=== PATIENT | male | born 1950 | race African-American/Black ===

== ENCOUNTER 2019-09-19 09:04 | Emergency (ER) | payer OTHER ==
--- NOTE | 2019-09-19 10:12 | ER ---
Nurse's Notes [facility] Name: Rodrigue Medina Age: 69 yrs Sex: Male : 1950 Arrival Date: 09/19/2019 Time: 09:07 Bed 17 Private MD: Diagnosis: Acute upper respiratory infection, unspecified;Fever, unspecified;Cough;Influenza due to certain identified influenza viruses-FLU B Presentation: 09/19 09:14 Presenting complaint: Patient states: body aches and cough that began 3 days ago. ss Denies fever. Transition of care: patient was not received from another setting of care. Onset of symptoms was September 16, 2019. Risk Assessment: Do you want to hurt yourself or someone else? Patient reports no desire to harm self or others. Initial Sepsis Screen: Does the patient meet any 2 criteria? HR > 90 bpm. Does the patient have a suspected source of infection? No. Patient's initial sepsis screen is negative. Care prior to arrival: None. 09:14 Method Of Arrival: Ambulatory ss 09:14 Acuity: LIBBY 3 ss Triage Assessment: 09:24 General: Appears in no apparent distress. comfortable, Behavior is cooperative, bp appropriate for age, anxious. Pain: Complains of pain in GENERALIZED. EENT: Reports nasal congestion. Neuro: No deficits noted. Cardiovascular: No deficits noted. Respiratory: Reports cough that is. GI: No signs and/or symptoms were reported involving the gastrointestinal system. : No signs and/or symptoms were reported regarding the genitourinary system. Derm: No deficits noted. Musculoskeletal: No deficits noted. Historical: - Allergies: 09:33 No Known Allergies; ss - Immunization history:: Adult Immunizations up to date. - Social history:: Smoking status: Patient/guardian denies using tobacco. - Ebola Screening: : Patient denies exposure to infectious person Patient denies travel to an Ebola-affected area in the 21 days before illness onset. - Family history:: not pertinent. Screenin:25 Abuse screen: Denies threats or abuse. Denies injuries from another. Nutritional bp screening: No deficits noted. Tuberculosis screening: No symptoms or risk factors identified. Fall Risk None identified. Assessment: 09:25 General: SEE TRIAGE NOTE. bp 10:51 Reassessment: PT D/C HOME AMBULATORY WITH FAMILY, DX WITH URI. bp Vital Signs: 09:33 BP 142 / 89; Pulse 93; Resp 17; Temp 97.9(O); Pulse Ox 98% on R/A; Weight 91.63 kg; Height 5 ft. 11 in. (180.34 cm); Pain 6/10; 10:40 BP 110 / 69; Pulse 89; Resp 16; Temp 98; Pulse Ox 98% ; bp 09:33 Body Mass Index 28.17 (91.63 kg, 180.34 cm) ED Course: 09:07 Patient arrived in ED. mr 09:16 Owen Betts, RN is Primary Nurse. bp 09:16 Fabrizio Valle MD is Attending Physician. [facility] 09:25 Patient has correct armband on for positive identification. Bed in low position. Call bp light in reach. Side rails up X2. 09:31 Triage completed. 09:33 Arm band placed on right wrist. 09:36 Influenza Screen (a \T\ B) Sent. [email or web address] 09:43 Chest Pa And Lat (2 Views) XRAY In Process Unspecified. EDMS 10:51 No provider procedures requiring assistance completed. Patient did not have IV access bp during this emergency room visit. Administered Medications: 10:20 Drug: Zithromax 500 mg Route: PO; bp 10:41 Follow up: Response: No adverse reaction bp 10:20 Drug: Tamiflu 75 mg Route: PO; bp 10:41 Follow up: Response: No adverse reaction bp Outcome: 10:10 Discharge ordered by . minerva 10:51 Discharged to home ambulatory, with family. bp 10:51 Condition: stable 10:51 Discharge instructions given to patient, Instructed on discharge instructions, follow up and referral plans. medication usage, Demonstrated understanding of instructions, follow-up care, medications, Prescriptions given X 3. 10:52 Patient left the ED. bp Signatures: Dispatcher [employer] EDMS Fabrizio Valle MD MD cha Rivera, Luly mr Mercedes Oneill, RN GABBY Owen Betts, GABBY RN Jessica Rizvi [email or web address]
--- NOTE | 2019-09-19 10:13 | EDPHYS ---
Physician Documentation [facility] Name: Rodrigue Medina Age: 69 yrs Sex: Male : 1950 Arrival Date: 09/19/2019 Time: 09:07 Bed 17 Private MD: ED Physician Fabrizio Valle HPI: 09/19 10:06 This 69 yrs old Black Male presents to ER via Ambulatory with complaints of Flu minerva Symptoms. 10:06 The patient has shortness of breath with light activity. Onset: The symptoms/episode minerva began/occurred 3 day(s) ago. Duration: The symptoms are continuous, and are unchanged since they started. The patient's shortness of breath is aggravated by coughing. The patient or guardian reports cough, difficulty breathing, flu symptoms, arthralgias, low-grade fever, myalgias, no appetite. Modifying factors: The symptoms are alleviated by nothing. the symptoms are aggravated by cold environment. Associated signs and symptoms: Pertinent positives: non-productive cough, fever. Severity of symptoms: At their worst the symptoms were mild moderate in the emergency department the symptoms have improved moderately. Historical: - Allergies: 09:33 No Known Allergies; ss - Immunization history:: Adult Immunizations up to date. - Social history:: Smoking status: Patient/guardian denies using tobacco. - Ebola Screening: : Patient denies exposure to infectious person Patient denies travel to an Ebola-affected area in the 21 days before illness onset. - Family history:: not pertinent. ROS: 10:06 Constitutional: Negative for fever, chills, and weight loss, Eyes: Negative for injury, minerva pain, redness, and discharge, ENT: Negative for injury, pain, and discharge, Neck: Negative for injury, pain, and swelling, Cardiovascular: Negative for chest pain, palpitations, and edema, Abdomen/GI: Negative for abdominal pain, nausea, vomiting, diarrhea, and constipation, Back: Negative for injury and pain, : Negative for injury, bleeding, discharge, and swelling, MS/Extremity: Negative for injury and deformity, Skin: Negative for injury, rash, and discoloration, Neuro: Negative for headache, weakness, numbness, tingling, and seizure, Psych: Negative for depression, anxiety, suicide ideation, homicidal ideation, and hallucinations, Allergy/Immunology: Negative for hives, rash, and allergies, Endocrine: Negative for neck swelling, polydipsia, polyuria, polyphagia, and marked weight changes, Hematologic/Lymphatic: Negative for swollen nodes, abnormal bleeding, and unusual bruising. 10:06 Respiratory: Positive for cough, shortness of breath, on exertion. Exam: 10:06 Constitutional: This is a well developed, well nourished patient who is awake, alert, minerva and in no acute distress. Head/Face: Normocephalic, atraumatic. Eyes: Pupils equal round and reactive to light, extra-ocular motions intact. Lids and lashes normal. Conjunctiva and sclera are non-icteric and not injected. Cornea within normal limits. Periorbital areas with no swelling, redness, or edema. ENT: Nares patent. No nasal discharge, no septal abnormalities noted. Tympanic membranes are normal and external auditory canals are clear. Oropharynx with no redness, swelling, or masses, exudates, or evidence of obstruction, uvula midline. Mucous membranes moist. Neck: Trachea midline, no thyromegaly or masses palpated, and no cervical lymphadenopathy. Supple, full range of motion without nuchal rigidity, or vertebral point tenderness. No Meningismus. Chest/axilla: Normal chest wall appearance and motion. Nontender with no deformity. No lesions are appreciated. Respiratory: Lungs have equal breath sounds bilaterally, clear to auscultation and percussion. No rales, rhonchi or wheezes noted. No increased work of breathing, no retractions or nasal flaring. Abdomen/GI: Soft, non-tender, with normal bowel sounds. No distension or tympany. No guarding or rebound. No evidence of tenderness throughout. Back: No spinal tenderness. No costovertebral tenderness. Full range of motion. Male : Normal genitalia with no discharge or lesions. Skin: Warm, dry with normal turgor. Normal color with no rashes, no lesions, and no evidence of cellulitis. MS/ Extremity: Pulses equal, no cyanosis. Neurovascular intact. Full, normal range of motion. Neuro: Awake and alert, GCS 15, oriented to person, place, time, and situation. Cranial nerves II-XII grossly intact. Motor strength 5/5 in all extremities. Sensory grossly intact. Cerebellar exam normal. Normal gait. Psych: Awake, alert, with orientation to person, place and time. Behavior, mood, and affect are within normal limits. 10:06 Cardiovascular: Rate: normal, Rhythm: regular. 10:06 Respiratory: the patient does not display signs of respiratory distress, Respirations: normal, Breath sounds: are clear throughout, rhonchi, that are mild, are scattered. Vital Signs: 09:33 BP 142 / 89; Pulse 93; Resp 17; Temp 97.9(O); Pulse Ox 98% on R/A; Weight 91.63 kg; ss Height 5 ft. 11 in. (180.34 cm); Pain 6/10; 10:40 BP 110 / 69; Pulse 89; Resp 16; Temp 98; Pulse Ox 98% ; bp 09:33 Body Mass Index 28.17 (91.63 kg, 180.34 cm) ss MDM: 09:16 Patient medically screened. [facility] 10:09 Data reviewed: vital signs, nurses notes, lab test result(s), radiologic studies, plain [facility] films. 09/19 09:17 Order name: Influenza Screen (a \T\ B); Complete Time: 10:28 [facility] 09/19 09:17 Order name: Chest Pa And Lat (2 Views) XRAY [facility] Administered Medications: 10:20 Drug: Zithromax 500 mg Route: PO; bp 10:41 Follow up: Response: No adverse reaction bp 10:20 Drug: Tamiflu 75 mg Route: PO; bp 10:41 Follow up: Response: No adverse reaction bp Disposition: 09/19/19 10:10 Discharged to Home. Impression: Acute upper respiratory infection, unspecified, Fever, unspecified, Cough, Influenza due to certain identified influenza viruses - FLU B. - Condition is Fair. - Discharge Instructions: Fever, Adult, Upper Respiratory Infection, Adult, Cool Mist Vaporizer, Upper Respiratory Infection, Adult, [id number], Influenza, Adult, [id number], Cough, Adult, [id number], Cough, Adult. - Prescriptions for Bromfed DM 2- 30-10 mg/5 mL Oral syrup - take 10 milliliter by ORAL route every 6 hours; 160 milliliter. Tamiflu 75 mg Oral Capsule - take 1 tablet by ORAL route every 12 hours for 5 days; 10 tablet. Zithromax 500 mg Oral Tablet - take 1 tablet by ORAL route once daily for 5 days; 5 tablet. - Medication Reconciliation Form, Thank You Letter, Antibiotic Education, Prescription Opioid Use form. - Follow up: Private Physician; When: 2 - 3 days; Reason: Recheck today's complaints, Continuance of care, Re-evaluation by your physician. - Problem is new. - Symptoms have improved. Signatures: Dispatcher [employer] EDUT Fabrizio Valle MD MD cha Smirch, Shelby, RN RN ss Franki Martinez RN RN [id number] Owen Betts RN RN bp Corrections: (The following items were deleted from the chart) 10:29 10:10 09/19/2019 10:10 Discharged to Home. Impression: Acute upper respiratory minerva infection, unspecified; Fever, unspecified; Cough. Condition is Fair. Forms are Medication Reconciliation Form, Thank You Letter, Antibiotic Education, Prescription Opioid Use. Follow up: Private Physician; When: 2 - 3 days; Reason: Recheck today's complaints, Continuance of care, Re-evaluation by your physician. Problem is new. Symptoms have improved. [facility] 10:52 10:29 09/19/2019 10:10 Discharged to Home. Impression: Acute upper respiratory bp infection, unspecified; Fever, unspecified; Cough; Influenza due to certain identified influenza viruses - FLU B. Condition is Fair. Discharge Instructions: Fever, Adult, Upper Respiratory Infection, Adult, Cool Mist Vaporizer, Upper Respiratory Infection, Adult, [id number], Cough, Adult, [id number]-[id number], Cough, Adult. Prescriptions for Bromfed DM 2-30-10 mg/5 mL Oral syrup - take 10 milliliter by ORAL route every 6 hours; 160 milliliter, Tamiflu 75 mg Oral Capsule - take 1 tablet by ORAL route every 12 hours for 5 days; 10 tablet, Zithromax 500 mg Oral Tablet - take 1 tablet by ORAL route once daily for 5 days; 5 tablet. and Forms are Medication Reconciliation Form, Thank You Letter, Antibiotic Education, Prescription Opioid Use. Follow up: Private Physician; When: 2 - 3 days; Reason: Recheck today's complaints, Continuance of care, Re-evaluation by your physician. Problem is new. Symptoms have improved. minerva
[2019-09-19] MEDS ORDERED: OSELTAMIVIR 75 MG CAP ONE (10:23)
[2019-09-19] MEDS ORDERED: AZITHROMYCIN 250 MG TAB ONE (10:23)
[2019-09-19 10:57] VITALS: O2SAT 98
[2019-09-19 10:59] VITALS: BP 110/69; TEMP 98
--- NOTE | 2019-09-19 12:12 | RAD REPORT ---
EXAM DESCRIPTION: RAD - Chest Pa And Lat (2 Views) - 09/19/2019 9:38 am CLINICAL HISTORY: COUGH Chest pain. COMPARISON: No comparisons FINDINGS: The lungs are clear. The heart is normal in size. No displaced fractures. IMPRESSION: No acute or concerning finding suspected.
== END 2019-09-19 10:52 | disposition home or self-care (01) ==
LOC: ER 09:04
DX: J10.1 Influenza due to other identified influenza virus with other respiratory manifestations (principal); R05 Cough
CPT/HCPCS: 71046; 87804; 99284

== ENCOUNTER 2022-06-16 09:19 | Emergency (ER) | payer OTHER ==
--- OUTSIDE RECORDS SUMMARY | 2022-06-16 09:26 | XMS REPORT | Continuity of Care Document ---
:1950 Author Organization [facility] t Address [address] [place] [address] Care Team Providers Name Role Phone Unavailable Unavailable Unavailable Payers Payer Name Policy Type Policy Number Effective Date Expiration Date S [facility] [place] [facility] [id number] * Problems Condition Condition Condition Status Onset Resolution Last Treating Co mments Source Name Details Category Date Date Treatment Clinician Date Chronic Chronic Problem Active 2020-08-22 M emoria kidney kidney 03:16:43 l disease, disease, Awais n stage 3, stage 3, mod mod decreased decreased GFR GFR Active Problem 08/22/2020 Hemal Pinedo 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:03:56 l 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 Problem 05/22/2019 Hemal Pinedo Hypertensi Diagnosis Active 2020-02-22 Memoria ve heart Hypertensi 02:06:20 l and ve heart [place] chronic and kidney chronic disease kidney with heart disease failure with heart and stage failure 1-4 and stage chronic 1-4 kidney chronic disease kidney disease Active Diagnosis 02/22/2020 Hemal Pinedo BMI BMI Problem Active 2022-03-01 Memor ia 28.0-28.9, 28.0-28.9, 02:01:41 l adult adult Jaime Active Problem 03/01/2022 Hemal Pinedo Diabetes Diabetes Problem Active 2022-03-01 Memoria mellitus mellitus 02:01:41 l 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 Problem 03/01/2022 Hemal Pinedo Diabetes Diabetes Problem Active 2022-03-01 Memoria Mellitus Mellitus 02:01:41 l 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 Active Problem 03/01/2022 Hemal Pinedo Vitamin D Vitamin D Diagnosis Active 2022-03-01 Memoria deficiency deficiency 02:01:41 l Active [place] Diagnosis 03/01/2022 Hemal Musshakan Diabetes Diabetes Diagnosis Active 2022-03-01 Memoria mellitus mellitus 02:01:41 l Type 2 Type 2 Jaime with with Diabetic Diabetic Chronic Chronic Kidney Kidney disease disease Active Diagnosis 03/01/2022 Hemal Khris BMI BMI Diagnosis Active 2022-03-01 Mem oria 27.0-27.9, 27.0-27.9, 02:01:41 l adult adult Jaime Active Diagnosis 03/01/2022 Hemal Khris 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 02:01:41 l a Active [place] Problem 03/01/2022 Hemal Khris Iron Iron Problem Active 2022-03-01 Memor ia deficiency deficiency 02:01:41 l anemia anemia [place] Active Problem 03/01/2022 Hemal Khris Internal Internal Problem Active 2022-03-01 Memoria hemorrhoid hemorrhoid 02:01:41 l s s Active [place] Problem 03/01/2022 Hemal Khris Diverticul Diverticu Problem Active 2022-03-01 Memoria osis losis 02:01:41 l Active [place] Problem 03/01/2022 Hemal Khris Hyperchole Hyperchol Diagnosis Active 2022-03-01 Memoria steremia esteremia 02:01:41 l Active [place] Diagnosis 03/01/2022 Hemal Khris History of History Diagnosis Active 2022-03-01 Memoria colon of colon 02:01:41 l cancer cancer Jaime Active Diagnosis 03/01/2022 Hemal Khris Type 2 Type 2 Problem Active 2022-03-01 Luther matias diabetes diabetes 02:01:41 l mellitus mellitus Awais n with mild with 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 without y without macular macular edema, edema, bilateral bilateral Active Problem 03/01/2022 Hemal Pinedo Peripheral Periphera Problem Active 2020-06-20 Memoria vascular l vascular 02:05:25 l disease DO disease DO He rmann NOT USE NOT USE Active Problem 06/20/2020 Hemalwally Pinedo Diabetes Diabetes Problem Active 2022-03-01 Memoria Type 2 w Type 2 w 02:01:41 l diabetic diabetic Awais n peripheral peripheral angiopath 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 w/o gangrene gangrene Active Problem 03/01/2022 Hemal Khris Elevated Elevated Problem Active 2022-03-01 Memoria AST (SGOT) AST (SGOT) 02:01:41 l Active [place] Problem 03/01/2022 Hemal Pinedo Ataxia Ataxia Problem Active 2022-03-01 Luther matias Active 02:01:41 l Problem [place] 03/01/2022 Hemal Pinedo Microalbum Microalbu Problem Active 2022-03-01 Memoria inuria minuria 02:01:41 l Active [place] Problem 03/01/2022 Hemal Pinedo Diabetes Diabetes Problem Active 2020-05-10 Memoria Mellitus Mellitus 02:02:20 l Type 2 Type 2 [place] with other with other Diabetic Diabetic Kidney Kidney Complicati Complicati on on Active Problem 05/10/2020 Hemal Pinedo Prostate Pro[facility] Diagnosis [facility] 02:[facility]28 l screening screening Herm larry Active Diagnosis 04/28/2021 Hemal Pinedo Routine Routine Diagnosis Active 2021-11-24 [facility] general general 03:02:13 l medical medical [place] examinatio examinatio n at a n at a [facility] facility Active Diagnosis 11/24/2021 Hemal Pinedo Adverse Adverse Problem Active 2022-03-01 Mn moria effect of effect of 02:01:41 l antihyperl antihyperl He rmann ipidemic ipidemic and and antiarteri antiarteri osclerotic osclerotic drugs, drugs, initial initial encounter encounter Active Problem 03/01/2022 Hemal Pinedo Increased Increased Problem Active 2022-03-01 [facility] creatine creatine 02:01:41 l kinase kinase Jaime level level Active Problem 03/01/2022 Hemal Pinedo Hypertensi Hypertens Diagnosis Active 2022-03-01 [facility] prince heart 02:01:41 l and and [place] chronic chronic kidney kidney disease disease stage 1-4 stage 1-4 Active Diagnosis 03/01/2022 Hemal Pinedo Myositis, Myositis, Problem Active 2022-03-01 Memoria unspecifie unspecifie 02:01:41 l d d Active [place] Problem 03/01/2022 Hemal Pinedo BPH BPH Problem Active 2022-03-01 Memor ia Active 02:01:41 l Problem Jaime 03/01/2022 Hemal Pinedo Acute Acute Diagnosis Active 2020-06-20 Mem oria renal renal 02:05:25 l failure failure Jaime Active Diagnosis 06/20/2020 Hemal Pinedo Bilateral Bilateral Diagnosis Active 2021-04-28 Memoria swelling swelling 02:00:28 l of feet of feet Ja[place] Active Diagnosis 04/28/2021 Hemal Pinedo Chronic Chronic Problem Active 2022-03-01 Me moria kidney kidney 02:01:41 l disease, disease, Awais n stage 3a stage 3a Active Problem 03/01/2022 Hemal Pinedo BMI BMI Problem Active 2022-03-01 Memor ia 29.0-29.9, 29.0-29.9, 02:01:41 l adult adult [place] Active Problem 03/01/2022 Hemal Pinedo Erectile Erectile Problem Active 2022-03-01 Memoria dysfunctio dysfunctio 02:01:41 l n n Active [place] Problem 03/01/2022 Hemal Pinedo 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 Atheroscle 02:01:41 l [place] rosis of [place] artery of [place] both lower artery of extremitie both lower s, with extremitie unspecifie s, with d presence unspecifie of d presence clinical of manifestat clinical ion manifestat ion Active Diagnosis 03/01/2022 Hemal Pinedo Leg cramps Leg Diagnosis Active 2020-02-22 Memoria cramps 02:06:20 l Active [place] Diagnosis 02/22/2020 Hemal Pinedo Hepatitis Hepatitis Diagnosis Active 2018-02-28 Memoria C C 02:05:51 l Screening Screening Herm larry [birth year] to 1967 (53 1967 (53 to 71) to 71) Active Diagnosis 02/28/2018 Hemal Pinedo Encounter Encounter Diagnosis Active 2021-07-18 Memoria for for 02:05:14 l observatio observatio He rmlarry n for n for suspected suspected exposure exposure to other to other biological biological agents agents ruled out ruled out Active Diagnosis 07/18/2021 Hemal Pinedo Gastroente Gastroent Diagnosis Active 2019-05-01 Memoria ritis eritis 02:02:09 l Active [place] Diagnosis 05/01/2019 Hemal Pinedo Nausea & Nausea & Diagnosis Active 2019-05-01 Memoria vomiting vomiting 02:02:09 l Active [place] [facility] Active 2019-05-01 Memoria discharge discharge 02:02:09 l follow-up follow-up Herm larry Active Diagnosis 05/01/2019 Hemal Pinedo Hypertensi Hypertens Problem Active 2020-12-07 Memoria on ion Active 02:02:21 l Problem Jaime 12/07/2020 Hemal Pinedo Right Right Diagnosis Active 2021-07-18 Mem oria wrist pain wrist pain 02:05:14 l Active [place] Diagnosis 07/18/2021 Hemal Pinedo Pharyngiti Pharyngit Diagnosis Active 2021-07-18 Memoria s is Active 02:05:14 l Diagnosis Jaime 07/18/2021 Hemal Pinedo Exposure Exposure Diagnosis Active 2021-07-18 Memoria to to 02:05:14 l COVID-19 COVID-19 Awais n virus virus Active Diagnosis 07/18/2021 Hemal Pinedo Iron Iron Problem Active 2016-05-02 Memor ia deficiency deficiency 02:02:54 l anemia anemia [place] Active Problem 05/02/2016 Hemal Pinedo BMI BMI Problem Active 2016-01-03 Memor ia 28.0-28.9, 28.0-28.9, 02:13:08 l adult adult [place] Active Problem 01/03/2016 Hemal Pinedo Hyperchole Hyperchol Problem Active 2016-01-03 Memoria sterolemia esterolemi 02:13:08 l a Active [place] Problem 01/03/2016 Hemal Pinedo Nephritis Nephritis Problem Active 2015-05-27 Memoria and and 02:00:44 l nephropath nephropath He rmlarry y, not y, not specified specified as acute as acute or or chronic, chronic, with other with other specified specified pathologic pathologic al lesion al lesion in kidney, in kidney, in in diseases diseases classified classified elsewhere elsewhere Active Problem 05/27/2015 Hemal Pinedo Diabetes Diabetes Problem Active 2015-05-27 Memoria mellitus mellitus 02:00:44 l with renal with renal He anette complicati complicati ons ons Active Problem 05/27/2015 eHmal Pinedo Vitamin D Vitamin D Problem Active 2016-01-03 Memoria Deficiency Deficiency 02:13:08 l Active [place] Problem 01/03/2016 Hemal Pinedo Benign Benign Problem Active 2015-05-27 Mem oria hypertensi hypertensi 02:00:44 l ve heart ve heart Awais solorio disease disease without without heart heart failure failure Active Problem 05/27/2015 Hemal Recinosdelmis 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 Awais n Active Diagnosis 08/25/2021 Hemal Gaytanhakan Chronic Chronic Problem Active 2016-01-03 Me moria kidney kidney 02:13:08 l disease, disease, Awais n stage 2, stage 2, mildly mildly decreased decreased GFR GFR Active Problem 01/03/2016 Hemal Recinosdelmis Hyperchole Hyperchol Problem Active 2016-07-01 Memoria sterolemia esterolemi 02:00:07 l a Active [place]ime Problem 07/01/2016 Hemal Recinosdelmis Antibody Antibody Diagnosis Active 2016-07-01 Memoria response response 02:00:07 l examinatio examinatio He rmann n n Active Diagnosis 07/01/2016 Hemal Khris Cough Cough Diagnosis Active 2016-07-01 Mem oria Active 02:00:07 l Diagnosis Jaime 07/01/2016 Hemal Khris URI (upper URI Diagnosis Active 2016-07-01 Memoria respirator (upper 02:00:07 l y respirator Awais solorio infection) y infection) Active Diagnosis 07/01/2016 Hemal Khris Encounter Encounter Diagnosis Active 2016-09-20 Memoria for for 03:22:08 l immunizati immunizati Jhonny cheema on on Active Diagnosis 09/20/2016 Hemal Pinedo Need for Need for Diagnosis Active 2020-06-20 Memoria prophylact prophylact 02:05:25 l ic ic [place] vaccinatio vaccinatio n and n and inoculatio inoculatio n against n against influenza influenza Active Diagnosis 06/20/2020 Hemal Mussaji Allergies, Adverse Reactions, Alerts This patient has no known allergies or adverse reactions. Social History Social Habit Start Date Stop Date Quantity Comments Source Alcohol: 2016-11-05 00:00:00 2016-11-05 Memor ial Jaime 00:00:00 Medications Ordered Filled Start Stop Current Ordering Indication Dosage Frequency Signature Comments Components Source Medication Medication Date Date Medication? Clinician (SIG) Name Name D3-50 Yes Hemal take 1 Memoria 6-17 [place] capsule by l 02:01: mouth once [place]ime 41 a week for 12 weeks Ranitidine Yes Hemal 1 tablet Memoria HCl 6-17 [place] l 02:01: [place] 41 Ondansetron Yes Hemal 1 tablet Memoria 6-17 [place] on the l 02:01: tongue and [place] 41 allow to dissolve as needed Vitamin D3 Yes Hemal TAKE 1 Me moria 6-17 [place] CAPSULE BY l 02:01: MOUTH ONCE [place] 41 A WEEK FOR 12 WEEKS Viagra Yes Hemal 1 tablet Luther matias 6-17 [place] as needed l 02:01: [place] 41 Tamsulosin Yes Hemal TAKE 1 Me moria HCl 6-17 [place] CAPSULE 30 l 02:01: MINUTES [place] 41 AFTER THE SAME MEAL EACH DAY ONCE A DAY ORALLY 90 DAYS Gabapentin Yes Hemal TAKE 1 Me moria 6-17 [place] CAPSULE BY l 02:01: MOUTH 3 [place] 41 TIMES DAILY MetFORMIN Yes Hemal TAKE 1 Mem oria HCl ER 6-17 [place] TABLET BY l 02:01: MOUTH [place] 41 DAILY WITH MEALS Olmesartan- Yes Hemal TAKE 1 M emoria Amlodipine- 6-17 [place] TABLET l HCTZ 02:01: ONCE A DAY [place] 41 ORALLY Folic Acid Yes Hemal TAKE 1 Me moria 6-17 [place] TABLET BY l 02:01: MOUTH [place] 41 EVERY DAY Furosemide 0 Yes Hemal TAKE 1 Me moria 6-17 [place] TABLET l 02:01: NEEDED [place] 41 ONCE A DAY ORALLY 90 DAYS D3-50 0 Yes Hemal take 1 Memoria 6-17 [place] capsule by l 02:01: mouth once [place] 41 a week for 12 weeks Ranitidine 0 Yes Hemal 1 tablet Memoria HCl 6-17 [place]ussaji l 02:01: [place] 41 Ondansetron 0 Yes Hemal 1 tablet Memoria 6-17 [place] on the l 02:01: tongue and [place] 41 allow to dissolve as needed Vitamin D3 0 Yes Hemal TAKE 1 Me moria 6-17 [place] CAPSULE BY l 02:01: MOUTH ONCE Jaime 41 A WEEK FOR 12 WEEKS Viagra 0 Yes Hemal 1 tablet Luther matias 6-17 [place] as needed l 02:01: Jaime 41 Tamsulosin Yes Hemal TAKE 1 Me moria HCl 6-17 [place] CAPSULE 30 l 02:01: MINUTES [place] 41 AFTER THE SAME MEAL EACH DAY ONCE A DAY ORALLY 90 DAYS Gabapentin 0 Yes Hemal TAKE 1 Me moria 6-17 [place] CAPSULE BY l 02:01: MOUTH 3 [place] 41 TIMES DAILY MetFORMIN 0 Yes Hemal TAKE 1 Mem oria HCl ER 6-17 [place] TABLET BY l 02:01: MOUTH [place] 41 DAILY WITH MEALS Olmesartan- 0 Yes Hemal TAKE 1 M emoria Amlodipine- 6-17 [place] TABLET l HCTZ 02:01: ONCE A DAY [place] 41 ORALLY Folic Acid 0 Yes Hemal TAKE 1 Me moria 6-17 [place] TABLET BY l 02:01: MOUTH [place] 41 EVERY DAY Furosemide 0 Yes Hemal TAKE 1 Me moria 6-17 [place] TABLET l 02:01: NEEDED Jaime 41 ONCE A DAY ORALLY 90 DAYS Folic Acid 0 Yes Hemal take 1 Me moria 3-12 [place] tablet by l 03:02: mouth [place] 13 every day Atorvastati 0 Yes Hemal 1 tablet Memoria n Calcium 3-12 Muss[place] l 03:02: Jaime 13 Furosemide 2021-0 Yes Hemal 1 tablet Memoria 3-12 [place] as needed l 03:02: Jaime 13 Folic Acid 2021-0 Yes Hemal take 1 Me moria 3-12 [place] tablet by l 03:02: mouth Jaime 13 every day Atorvastati 2021-0 Yes Hemal 1 tablet Memoria n Calcium 3-12 Mussaji l 03:02: Jaime 13 Furosemide 2021-0 Yes Hemal 1 tablet Memoria 3-12 [place] as needed l 03:02: Jaime 13 MetFORMIN 2020-09 Yes Hemal take 1 Mem oria HCl ER 2-11 [place] tablet by l 03:04: mouth Jaime 33 daily with meals Livalo 2020-09 Yes Hemal 1/2 tablet Me moria 2-11 Muss[place] l 03:04: Jaime 33 Olmesartan- 2020-09 Yes Hemal 1 tablet Memoria Amlodipine- 2-11 Mussaji l HCTZ 03:04: Jaime 33 MetFORMIN 2020-09 Yes Hemal take 1 Mem oria HCl ER 2-11 [place] tablet by l 03:04: mouth [place]ime 33 daily with meals Livalo 2020-09 Yes Hemal 1/2 tablet Me moria 2-11 Mussaji l 03:04: Jaime 33 Olmesartan- 2020-09 Yes Hemal 1 tablet Memoria Amlodipine- 2-11 Mussaji l HCTZ 03:04: Jaime 33 Gabapentin 2020-09 Yes Hemal 1 capsule Memoria 1-03 Muss[place] l 02:05: Jaime 14 Livalo 2020-09 Yes Hemal 1/2 tablet Me moria 1-03 Mussaji l 02:05: Jaime 14 Gabapentin 2020-09 Yes Hemal 1 capsule Memoria 1-03 Mussaji l 02:05: Jaime 14 Livalo 2020-09 Yes Hemal 1/2 tablet Me moria 1-03 Mussaji l 02:05: Jaime Amlodipine- 2020-0 Yes Hemal 1 tablet Memoria Valsartan-H 8-14 Mussaji l CTZ 02:00: Jaime 28 Tamsulosin 2021-0 Yes Hemal 1 capsule Memoria HCl 8-14 M[place] 30 minutes l 02:00: after the same meal each day Amlodipine- 2020-0 Yes Hemal 1 tablet Memoria Valsartan-H 8-14 Mussaji l CTZ 02:00: Tamsulosin Yes Hemal 1 capsule Memoria HCl 8-14 M[place] 30 minutes l 02:00: after the same meal each day MetFORMIN Yes Hemal take 1 Mem oria HCl ER 3-25 [place] tablet by l 02:02: mouth 21 daily with meals MetFORMIN Yes Hemal take 1 Mem oria HCl ER 3-25 [place] tablet by l 02:02: mouth daily with meals Gabapentin 2019-09 Yes Hemal 1 capsule Memoria 0-06 Mussaji l 02:05: Livalo 2020-1 Yes Hemal 1 tablet Luther matias 0-06 Mussaji l 02:05: Gabapentin 2019-1 Yes Hemal 1 capsule Memoria 0-06 Mussaji l 02:05: Livalo 2020-1 Yes Hemal 1 tablet Luther matias 0-06 Mussaji l 02:05: Folic Acid 2020-0 Yes Hemal take 1 Me moria 6-29 [place] tablet by l 02:03: mouth Jaime 40 every day Folic Acid 2020-0 Yes Hemal take 1 Me moria 6-29 [place] tablet by l 02:03: mouth 40 every day Amlodipine- 2018-09 Yes Hemal 1 tablet Memoria Valsartan-H 2-08 Mussaji l CTZ 03:03: Jaime Atorvastati 2018-09 Yes Ehmal 1 tablet Memoria n Calcium 2-08 Mussaji l 03:03: Jaime Amlodipine- 2018-09 Yes Hemal 1 tablet Memoria Valsartan-H 2-08 Mussaji l CTZ 03:03: Jaime Atorvastati 2018-09 Yes Hemal 1 tablet Memoria n Calcium 2-08 Mussaji l 03:03: Jaime Atorvastati 2018-09 Yes Hemal 1 tablet Memoria n Calcium 0-15 Mussaji l 02:01: Jaime Pham 2019-1 Yes Hemal 1 tablet Memor ia Aspirin EC 0-15 Mussaji l Low Dose 02:01: Jaime Atorvastati 2019-1 Yes Hemal 1 tablet Memoria n Calcium 0-15 Mussaji l 02:01: Jaime Pham 2019-1 Yes Hemal 1 tablet Memor ia Aspirin EC 0-15 Mussaji l Low Dose 02:01: Jaime MetFORMIN 2019-0 Yes Hemal take 1 Mem oria HCl ER 8-17 [place] tablet by l 02:02: mouth daily with meals Folic Acid 2019-0 Yes Hemal take 1 Me moria 8-17 [place] tablet by l 02:02: mouth every day Amlodipine- 2019-0 Yes Hemal 1 tablet Memoria Valsartan-H 8-17 Mussaji l CTZ 02:02: Atorvastati 2019-0 Yes Hemal 1 tablet Memoria n Calcium 8-17 Mussaji l 02:02: Ranitidine 2019-0 Yes Hemal 1 tablet Memoria HCl 8-17 Mussaji l 02:02: D350 2018-0 Yes Hemal take 1 Memoria 8-17 [place] capsule by l 02:02: mouth once a week for 12 weeks MetFORMIN 2019-0 Yes Hemal take 1 Mem oria HCl ER 8-17 [place] tablet by l 02:02: mouth daily with meals Folic Acid 2019-0 Yes Hemal take 1 Me moria 8-17 [place] tablet by l 02:02: mouth every day Amlodipine- 2019-0 Yes Hemal 1 tablet Memoria Valsartan-H 8-17 Mussaji l CTZ 02:02: Atorvastati 2019-0 Yes Hemal 1 tablet Memoria n Calcium 8-17 Mussaji l 02:02: Ranitidine 2019-0 Yes Hemal 1 tablet Memoria HCl 8-17 Mussaji l 02:02: D3-50 2018-0 Yes Hemal take 1 Memoria 8-17 [place] capsule by l 02:02: mouth once a week for 12 weeks MetFORMIN 2018-0 Yes Hemal TAKE 1 Mem oria HCl ER 1-03 [place] TABLET BY l 03:04: MOUTH [place] 24 DAILY WITH MEALS MetFORMIN 2018-0 Yes Hemal TAKE 1 Mem oria HCl ER 1-03 [place]ussaji TABLET BY l 03:04: MOUTH 24 DAILY WITH MEALS Atorvastati 2017-0 Yes Hemal 1 tablet Memoria n Calcium 9-11 Mussaji l 02:03: 15 Folic Acid 2017-0 Yes Hemal 1 tablet Memoria 9-11 Mussaji l 02:03: 15 Lipitor 2017-0 Yes Hemal TAKE 1 Memor ia 9-11 [place] TABLET BY l 02:03: MOUTH 15 DAILY Atorvastati 2017-0 Yes Hemal 1 tablet Memoria n Calcium 9-11 Mussaji l 02:03: 15 Folic Acid 2017-0 Yes Hemal 1 tablet Memoria 9-11 Mussaji l 02:03: 15 Lipitor 2017-0 Yes Hemal TAKE 1 Memor ia 9-11 [place] TABLET BY l 02:03: MOUTH 15 DAILY Vitamin D3 2017-0 Yes Hemal 1 capsule Memoria 8-07 Mussaji l 02:01: Vitamin D3 2017-0 Yes Hemal 1 capsule Memoria 8-07 Mussaji l 02:01: Amlodipine 2015-09 Yes Hemal 1 capsule Memoria Besy-Benaze 0-17 Mussaji l pril HCl 02:00: Jaime Ferrous 2015-09 Yes Hemal 1 tablet Mem oria Sulfate 0-17 Mussaji l 02:00: Jaime Tessalon 2015-09 Yes Hemal 1 capsule M emoria Perles 0-17 [place] as needed l 02:00: Jaime Hydrochloro 2015-09 Yes Hemal 1 capsule Memoria thiazide 0-17 Mussaji l 02:00: [place] 07 Amlodipine 2015-09 Yes Hemal 1 capsule Memoria Besy-Benaze 0-17 Mussaji l pril HCl 02:00: Jaime Ferrous 2015-09 Yes Hemal 1 tablet Mem oria Sulfate 0-17 Mussaji l 02:00: Tessalon 2016-1 Yes Hemal 1 capsule M hector Colon 0-17 [place]uss[place] as needed l 02:00: Hydrochloro 2016-1 Yes Hemal 1 capsule Memoria thiazide 0-17 Mussaji l 02:00: Amlodipine- 2016-0 Yes Hemal 1 tablet Memoria Valsartan-H 5-24 Mussaji l CTZ 00:00: Amlodipine- 2016-0 Yes Hemal 1 tablet Memoria Valsartan-H 5-24 Mussaji l CTZ 00:00: Amlodipine- 2016-0 Yes Hemal 1 tablet Memoria Valsartan-H 5-24 Mussaji l CTZ 00:00: Amlodipine- 2016-0 Yes Hemal 1 tablet Memoria Valsartan-H 5-24 Mussaji l CTZ 00:00: Immunizations Ordered Immunization Filled Immunization Date Status Commen ts Source Name Name INFLUENZA FLUZONE 2020-05-30 Completed Memoria l HIGH DOSE >65 ONLY 00:00:00 Awais n COMMERCIAL & MEDICARE INFLUENZA FLUZONE 2020-05-30 Completed Memoria l HIGH DOSE >65 ONLY 00:00:00 Awais solorio COMMERCIAL & MEDICARE INFLUENZA- FLUCELVAX 2019-08-03 Completed Luther rial >4YRS (COMMERCIAL) 00:00:00 Awais n INFLUENZA- FLUCELVAX 2019-08-03 Completed Luther rial >4YRS (COMMERCIAL) 00:00:00 Awais solorio INFLUENZA FLU ZONE 2018-11-03 Completed Memori al HIGH DOSE >65 ONLY 00:00:00 Awais n COMMERCIAL & MEDICARE INFLUENZA FLUZONE 2018-11-03 Completed Memoria l HIGH DOSE >65 ONLY 00:00:00 Awais solorio COMMERCIAL & MEDICARE INFLUENZA FLU ZONE 2018-11-03 Completed Memori al HIGH DOSE >65 ONLY 00:00:00 Awais solorio COMMERCIAL & MEDICARE INFLUENZA FLUZONE 2018-11-03 Completed Memoria l HIGH DOSE >65 ONLY 00:00:00 Awais solorio COMMERCIAL & MEDICARE INFLUENZA > 3yrs 2017-11-04 Completed Memorial MEDICARE ONLY 00:00:00 Jaime INFLUENZA > 3yrs 2017-11-04 Completed Memorial MEDICARE ONLY 00:00:00 [place] INFLUENZA HIGH DOSE 2016-08-06 Completed Memor ial >65 ONLY 00:00:00 [place] INFLUENZA HIGH DOSE 2016-08-06 Completed Memor ial >65 ONLY 00:00:00 Jaime Vital Signs Vital Name Observation Time Observation Value Comments Source Heart Rate 2022-02-14 14:30:00 [facility] Ja[place] Diastolic (mm Hg) 2022-02-14 14:30:00 Mem orial Ja[place] Systolic (mm Hg) 2022-02-14 14:30:00 Luther rial [place] Temperature Oral (F) 2022-02-14 14:30:00 96.9 F [facility] Ja[place] Weight 2022-02-14 14:30:00 [facility] [place] Height 2022-02-14 14:30:00 [facility] [place] Heart Rate 2021-11-15 15:15:00 [facility] Ja[place] Diastolic (mm Hg) 2021-11-15 15:15:00 Mem orial Ja[place] Systolic (mm Hg) 2021-11-15 15:15:00 Luther rial Jaime Temperature Oral (F) 2021-11-15 15:15:00 97.5 F [facility] [place] Weight 2021-11-15 15:15:00 [facility] [place] Height 2021-11-15 15:15:00 [facility] Jaime Heart Rate 2021-08-16 16:00:00 [facility] [place] Diastolic (mm Hg) 2021-08-16 16:00:00 Mem orial Jaime Systolic (mm Hg) 2021-08-16 16:00:00 Luther rial Jaime Temperature Oral (F) 2021-08-16 16:00:00 96.3 F [facility] Ja[place] Weight 2021-08-16 16:00:00 [facility] [place] Height 2021-08-16 16:00:00 [facility] [place] Heart Rate 2021-05-15 14:45:00 [facility] [place] Diastolic (mm Hg) 2021-05-15 14:45:00 Mem orial Jaime Systolic (mm Hg) 2021-05-15 14:45:00 Luther rial Jaime Temperature Oral (F) 2021-05-15 14:45:00 99.0 F [facility] [place] Weight 2021-05-15 14:45:00 [facility] [place] Height 2021-05-15 14:45:00 [facility] Ja[place] Heart Rate 2021-02-13 14:00:00 [facility] [place] Diastolic (mm Hg) 2021-02-13 14:00:00 Mem orial [place] Systolic (mm Hg) 2021-02-13 14:00:00 Luther rial Jaime Temperature Oral (F) 2021-02-13 14:00:00 97.6 F [facility] Ja[place] Weight 2021-02-13 14:00:00 [facility] [place] Height 2021-02-13 14:00:00 [facility] [place] Heart Rate 2020-11-14 14:00:00 [facility] [place] Diastolic (mm Hg) 2020-11-14 14:00:00 Mem orial [place] Systolic (mm Hg) 2020-11-14 14:00:00 Luther rial Jaime Temperature Oral (F) 2020-11-14 14:00:00 97.7 F [facility] [place] Weight 2020-11-14 14:00:00 [facility] [place] Height 2020-11-14 14:00:00 [facility] [place] Heart Rate 2020-08-01 15:30:00 [facility] [place] Diastolic (mm Hg) 2020-08-01 15:30:00 Mem orial [place] Systolic (mm Hg) 2020-08-01 15:30:00 Luther rial [place] Temperature Oral (F) 2020-08-01 15:30:00 98.2 F [facility] [place] Weight 2020-08-01 15:30:00 [facility] [place] Height 2020-08-01 15:30:00 [facility] [place] Heart Rate 2020-05-30 15:00:00 [facility] [place] Diastolic (mm Hg) 2020-05-30 15:00:00 Mem orial [place] Systolic (mm Hg) 2020-05-30 15:00:00 Luther rial [place] Temperature Oral (F) 2020-05-30 15:00:00 97.0 F [facility] [place] Weight 2020-05-30 15:00:00 [facility] [place] Height 2020-05-30 15:00:00 [facility] [place] Heart Rate 2020-05-02 15:15:00 [facility] [place] Diastolic (mm Hg) 2020-05-02 15:15:00 Mem orial [place] Systolic (mm Hg) 2020-05-02 15:15:00 Luther rial Jaime Temperature Oral (F) 2020-05-02 15:15:00 97.0 F [facility] [place] Weight 2020-05-02 15:15:00 [facility] Ja[place] Height 2020-05-02 15:15:00 [facility] Ja[place] Heart Rate 2020-02-18 16:15:00 [facility] Diastolic (mm Hg) 2020-02-18 16:15:00 [facility] Systolic (mm Hg) 2020-02-18 16:15:00 [facility] Temperature Oral (F) 2020-02-18 16:15:00 97.7 F [facility] Weight 2020-02-18 16:15:00 [facility] Height 2020-02-18 16:15:00 [facility] Heart Rate 2020-02-01 19:45:00 [facility] Diastolic (mm Hg) 2020-02-01 19:45:00 [facility] Systolic (mm Hg) 2020-02-01 19:45:00 [facility] Temperature Oral (F) 2020-02-01 19:45:00 97.9 F [facility] Weight 2020-02-01 19:45:00 [facility] Height 2020-02-01 19:45:00 [facility] Heart Rate 2019-08-03 17:30:00 [facility] Diastolic (mm Hg) 2019-08-03 17:30:00 [facility] Systolic (mm Hg) 2019-08-03 17:30:00 [facility] Temperature Oral (F) 2019-08-03 17:30:00 97.5 F [facility] Weight 2019-08-03 17:30:00 [facility] Height 2019-08-03 17:30:00 [facility] Heart Rate 2019-05-04 19:45:00 [facility] Diastolic (mm Hg) 2019-05-04 19:45:00 [facility] Systolic (mm Hg) 2019-05-04 19:45:00 [facility] Temperature Oral (F) 2019-05-04 19:45:00 98.0 F [facility] Weight 2019-05-04 19:45:00 [facility] Height 2019-05-04 19:45:00 [facility] Heart Rate 2019-03-31 20:15:00 [facility] Diastolic (mm Hg) 2019-03-31 20:15:00 [facility] Systolic (mm Hg) 2019-03-31 20:15:00 [facility] Temperature Oral (F) 2019-03-31 20:15:00 99.0 F [facility] Weight 2019-03-31 20:15:00 [facility] Height 2019-03-31 20:15:00 [facility] Heart Rate 2019-02-02 19:45:00 [facility] Diastolic (mm Hg) 2019-02-02 19:45:00 [facility] Systolic (mm Hg) 2019-02-02 19:45:00 [facility] Temperature Oral (F) 2019-02-02 19:45:00 98.2 F [facility] Weight 2019-02-02 19:45:00 [facility] Height 2019-02-02 19:45:00 [facility] Heart Rate 2018-11-03 20:00:00 [facility] Diastolic (mm Hg) 2018-11-03 20:00:00 [facility] Systolic (mm Hg) 2018-11-03 20:00:00 [facility] Temperature Oral (F) 2018-11-03 20:00:00 97.0 F [facility] Weight 2018-11-03 20:00:00 [facility] Height 2018-11-03 20:00:00 [facility] Heart Rate 2018-11-03 19:00:00 [facility] Diastolic (mm Hg) 2018-11-03 19:00:00 [facility] Systolic (mm Hg) 2018-11-03 19:00:00 [facility] Temperature Oral (F) 2018-11-03 19:00:00 97.0 F [facility] Weight 2018-11-03 19:00:00 [facility] Height 2018-11-03 19:00:00 [facility] Heart Rate 2018-08-04 20:00:00 [facility] Diastolic (mm Hg) 2018-08-04 20:00:00 [facility] Systolic (mm Hg) 2018-08-04 20:00:00 [facility] Temperature Oral (F) 2018-08-04 20:00:00 97.4 F [facility] Weight 2018-08-04 20:00:00 [facility] Height 2018-08-04 20:00:00 [facility] Heart Rate 2018-05-05 20:15:00 [facility] Diastolic (mm Hg) 2018-05-05 20:15:00 [facility] Systolic (mm Hg) 2018-05-05 20:15:00 [facility] Temperature Oral (F) 2018-05-05 20:15:00 98.3 F [facility] Weight 2018-05-05 20:15:00 [facility] Height 2018-05-05 20:15:00 [facility] Heart Rate 2018-05-05 19:15:00 [facility] Diastolic (mm Hg) 2018-05-05 19:15:00 [facility] Systolic (mm Hg) 2018-05-05 19:15:00 [facility] Temperature Oral (F) 2018-05-05 19:15:00 98.3 F [facility] Weight 2018-05-05 19:15:00 [facility] Height 2018-05-05 19:15:00 [facility] Heart Rate 2018-02-03 19:00:00 [facility] Diastolic (mm Hg) 2018-02-03 19:00:00 [facility] Systolic (mm Hg) 2018-02-03 19:00:00 [facility] Temperature Oral (F) 2018-02-03 19:00:00 97.0 F [facility] Weight 2018-02-03 19:00:00 [facility] Height 2018-02-03 19:00:00 [facility] Heart Rate 2017-11-04 20:00:00 [facility] Diastolic (mm Hg) 2017-11-04 20:00:00 [facility] Systolic (mm Hg) 2017-11-04 20:00:00 [facility] Temperature Oral (F) 2017-11-04 20:00:00 98.3 F [facility] Weight 2017-11-04 20:00:00 [facility] Height 2017-11-04 20:00:00 [facility] Heart Rate 2017-11-04 19:00:00 [facility] Diastolic (mm Hg) 2017-11-04 19:00:00 [facility] Systolic (mm Hg) 2017-11-04 19:00:00 [facility] Temperature Oral (F) 2017-11-04 19:00:00 98.3 F [facility] Weight 2017-11-04 19:00:00 [facility] Height 2017-11-04 19:00:00 [facility] Heart Rate 2017-08-05 20:15:00 [facility] Diastolic (mm Hg) 2017-08-05 20:15:00 [facility] Systolic (mm Hg) 2017-08-05 20:15:00 [facility] Temperature Oral (F) 2017-08-05 20:15:00 96.5 F [facility] Weight 2017-08-05 20:15:00 [facility] Height 2017-08-05 20:15:00 [facility] Heart Rate 2017-05-06 14:00:00 [facility] Diastolic (mm Hg) 2017-05-06 14:00:00 [facility] Systolic (mm Hg) 2017-05-06 14:00:00 [facility] Temperature Oral (F) 2017-05-06 14:00:00 97.8 F [facility] Weight 2017-05-06 14:00:00 [facility] Height 2017-05-06 14:00:00 [facility] Heart Rate 2016-11-05 14:45:00 [facility] Diastolic (mm Hg) 2016-11-05 14:45:00 [facility] Systolic (mm Hg) 2016-11-05 14:45:00 [facility] Temperature Oral (F) 2016-11-05 14:45:00 97.8 F [facility] Weight 2016-11-05 14:45:00 [facility] Height 2016-11-05 14:45:00 [facility] Heart Rate 2016-08-06 15:45:00 [facility] Diastolic (mm Hg) 2016-08-06 15:45:00 [facility] Systolic (mm Hg) 2016-08-06 15:45:00 [facility] Temperature Oral (F) 2016-08-06 15:45:00 97.4 F [facility] Weight 2016-08-06 15:45:00 [facility] Height 2016-08-06 15:45:00 [facility] Heart Rate 2015-11-07 15:00:00 [facility] Diastolic (mm Hg) 2015-11-07 15:00:00 [facility] Systolic (mm Hg) 2015-11-07 15:00:00 [facility] Sandoval Temperature Oral (F) 2015-11-07 15:00:00 97.6 F [facility] Weight 2015-11-07 15:00:00 [facility] Height 2015-11-07 15:00:00 [facility] Procedures This patient has no known procedures. Encounters Start End Encounter Admission Attending Care Care Encounter Source Date/Time Date/Time Type Type Clinicians Facility Department ID 2021-12-14 Outpatient [facility] [id number] [place] 14:47:18 [id number] [facility] 2021-12-12 Outpatient [facility] [id number] [place] 13:16:40 [id number] [facility] 2022-02-18 2022-02-18 Outpatient [facility] [id number] [facility] 14:15:00 14:15:00 [facility] 2022-02-14 2022-02-14 Outpatient [facility] [id number] [facility] 09:30:00 09:30:00 [facility] 2021-11-16 2021-11-16 Outpatient [facility] [id number] [facility] 16:22:00 16:22:00 [facility] 2021-11-15 2021-11-15 Outpatient [facility] [id number] [facility] 09:15:00 09:15:00 [facility] 2021-08-17 2021-08-17 Outpatient [facility] [id number] [facility] 16:36:00 16:36:00 [facility] 2021-08-16 2021-08-16 Outpatient [facility] [id number] [facility] 10:00:00 10:00:00 [facility] 2021-05-17 2021-05-17 Outpatient [facility] [id number] [facility] 12:11:00 12:11:00 [facility] 2021-05-15 2021-05-15 Outpatient [facility] [id number] [facility] 09:45:00 09:45:00 [facility] 2021-02-16 2021-02-16 Outpatient [facility] [id number] [facility] 14:16:00 14:16:00 Cyril gomez [facility] 2021-02-13 2021-02-13 Outpatient [facility] [id number] [facility] 09:00:00 09:00:00 Cyril gomez [facility] 2020-11-27 2020-11-27 Outpatient [facility] [id number] [facility] 14:12:00 [place] [facility] 2020-11-14 2020-11-14 Outpatient [facility] [id number] [facility] 09:00:00 09:00:00 [place] [facility] 2020-08-04 2020-08-04 Out[facility] [id number] [facility] 13:32:00 13:32:00 [facility] 2020-08-01 2020-08-01 Outpatient [facility] [id number] [facility] 09:30:00 09:30:00 [facility] 2020-05-30 2020-05-30 Outpatient [facility] [id number] [facility] 10:00:00 10:00:[facility] 2020-05-05 2020-05-05 Out[facility] [id number] [facility] 14:56:00 14:56:00 [facility] 2020-05-02 2020-05-02 Outpatient [facility] [id number] [facility] 10:15:00 10:15:00 [place] [facility] 2020-02-22 2020-02-22 Outpatient [facility] [id number] [facility] 15:27:00 15:27:00 [place] C[facility] g[facility] 2020-02-18 2020-02-18 Outpatient [facility] [id number] [facility] 11:15:00 11:15:00 [facility] 2020-02-04 2020-02-04 Outpatient [facility] [id number] [facility] 16:01:00 16:01:00 [place] [facility] 2020-02-01 2020-02-01 Outpatient [facility] [id number] [facility] 14:45:00 14:45:00 [facility] 2019-11-05 2019-11-05 Outpatient [facility] [id number] [facility] 14:40:00 14:40:00 Cyril gomez [facility] 2019-08-06 2019-08-06 Outpatient [facility] [id number] [facility] 15:56:00 15:56:00 Cyril gomez [facility] 2019-08-05 2019-08-05 Outpatient [facility] [id number] [facility] 16:24:00 16:24:00 Cyril gomez [facility] 2019-08-03 2019-08-03 Outpatient [facility] [id number] [facility] 11:30:00 11:30:00 C[facility]il gomez [facility] 2019-05-06 2019-05-06 Outpatient [facility] [id number] [facility] 12:32:00 12:32:00 C[facility]il gomez [facility] 2019-05-04 2019-05-04 Outpatient [facility] [id number] [facility] 14:45:00 14:45:00 C[facility]il gomez [facility] 2019-03-31 2019-03-31 Outpatient [facility] [id number] [facility] 15:15:00 15:15:00 C[facility]il gomez [facility] 2019-02-03 2019-02-03 Outpatient [facility] [id number] [facility] 14:12:00 14:12:00 C[facility]il gomez [facility] 2019-02-02 2019-02-02 Outpatient [facility] [id number] [facility] 14:45:00 14:45:00 C[facility]il gomez [facility] 2018-11-05 2018-11-05 Outpatient [facility] [id number] [facility] 15:48:00 15:48:00 C[facility]il gomez [facility] 2018-11-03 2018-11-03 Outpatient [facility] [id number] [facility] 14:00:00 14:00:00 C[facility]il gomez [facility] 2018-11-03 2018-11-03 Outpatient [facility] [id number] [facility] 14:00:00 14:00:00 C[facility]il gomez [facility] 2018-08-10 2018-08-10 Outpatient [facility] [id number] [facility] 14:52:00 14:52:00 [facility]il gomez [facility] 2018-08-04 2018-08-04 Outpatient [facility] [id number] [facility] 14:00:00 14:00:00 [facility]il gomez [facility] 2018-05-05 2018-05-05 Outpatient [facility] [id number] [facility] 14:15:00 14:15:00 Cyril gomez [facility] 2018-05-05 2018-05-05 Outpatient [facility] [id number] [facility] 14:15:00 14:15:00 Cyril gomez [facility] 2018-02-04 2018-02-[address] [facility] [id number] [facility] 16:32:00 16:32:00 [facility] 2018-02-03 2018-02-03 Outpatient [facility] [id number] [facility] 14:00:00 14:00:00 [facility] 2017-11-05 2017-11-05 Outpatient [facility] [id number] [facility] 14:34:00 14:34:00 [facility] g[facility] 2017-11-04 2017-11-04 Outpatient [facility] [id number] [facility] 14:00:00 14:00:00 [facility] 2017-11-04 2017-11-04 Outpatient [facility] [id number] [facility] 14:00:00 14:00:00 Cyril gomez [facility] 2017-08-11 2017-08-11 Outpatient [facility] [id number] [facility] 14:05:00 14:05:00 Cyril gomez [facility] 2017-08-05 2017-08-05 Outpatient [facility] [id number] [facility] 14:15:00 14:15:00 C[facility]il gomez [facility] 2017-05-08 2017-05-08 Outpatient [facility] [id number] [facility] 13:33:00 13:33:00 [facility] 2017-05-06 2017-05-06 Outpatient [facility] [id number] [facility] 09:00:00 09:00:00 Cyril gomez [facility] 2017-02-05 2017-02-05 Outpatient [facility] [id number] [facility] 14:53:00 14:53:00 [facility] 2016-11-08 2016-11-08 Lab nullFlavo Hemal [id number] -9 [facility] 21:20:00 21:20:00 Results anthony Madrigalf-4dae-a l DO, SANTHOSH [id number] [facility] nn 225d6f 2016-11-08 2016-11-08 Lab nullFlavo Hemal [id number] -9 [facility] 21:20:00 21:20:00 Results neri Madrigal-4dae-a l DO, SANTHOSH [id number] [facility] 225d6f 2016-11-08 2016-11-08 Outpatient [facility]al Hemal [id number] [facility] 15:20:00 15:20:00 Dat Daugherty l DO, SANTH[facility] TREVIZO DO 2016-11-05 2016-11-05 Outpatient [facility] [id number] [facility] 09:45:00 09:45:00 [facility] 2016-08-09 2016-08-09 lab nullFlavo Hemal [id number] -7 [facility] 16:11:00 16:11:00 results ashley [id number] patricia DOSANTHOSH [id number] Francesca orozco a52e3f 2016-08-09 2016-08-09 lab nullFlavo Hemal [id number] -8 [facility] 16:11:00 16:11:00 results mindy Daugherty ba4-43dd-a patricia DOSANTHOSH [id number] Francesca 5daea7 2016-08-09 2016-08-09 lab nullFlavo Hemal [id number] -5 [facility] 16:11:00 16:11:00 results mindy Daugherty s57-2ee8-5 patricia DOSANTHOSH [id number] Francesca orozco 2g693v 2016-08-09 2016-08-09 lab nullFlavo Hemal [id number] -7 [facility] 16:11:00 16:11:00 results ashley [id number] patricia DOSANTHOSH [id number] [facility] a52e3f 2016-08-09 2016-08-09 lab nullFlavo Hemal [id number] -8 [facility] 16:11:00 16:11:00 results mindy Dat ba4-43dd-a l DO, PA [id number] [facility] 5daea7 2016-08-09 2016-08-09 lab nullFlavo Hemal [id number] -5 [facility] 16:11:00 16:11:00 results mindy Daugherty c11-4tm4-3 l DO, PA [id number] [facility] 4i640t 2016-08-09 2016-08-09 Outpatient Hemal Recio [id number] [facility] 10:11:00 10:11:00 Dat Daugherty, l DO, PA DO, PA [facility] 2016-08-06 2016-08-06 Diabetes nullFlavo Hemal [id number] a-3 [facility] 15:45:00 15:45:00 F/U,HTN r Dat, 1h2-8ks3-t l F/U,Lipids DO, PA [id number]-5xo236 He rmann F/U--Conf d42016-08-06 2016-08-06 Diabetes nullFlavo Hemal [id number] 0-d [facility] 15:45:00 15:45:00 F/U,HTN r Dat, 243-4ad4-b l F/U,Lipids DO, PA cbd-cbd63a He rmann F/U--Conf [id number] 2016-08-06 2016-08-06 Diabetes nullFlavo Hemal [id number] a-3 [facility] 15:45:00 15:45:00 F/U,HTN r Johnathanayakov, 8z7-4em8-y l F/U,Lipids DO, PA k0y-7ko979 He rmann F/U--Conf d42016-08-06 2016-08-06 Diabetes nullFlavo Hemal [id number] 0-d [facility] 15:45:00 15:45:00 F/U,HTN r Johnathanajdelmis, 243-4ad4-b l F/U,Lipids DO, PA cbd-cbd63a He rmann F/U--[facility] [id number] 2016-08-06 2016-08-06 Outpatient Hemal Hemal [id number] [facility] 09:45:00 09:45:00 Dat Daugherty l DO, SANTH[facility] TREVIZO DO 2016-05-09 2016-05-09 lab nullFlavo Hemal [id number] -9 [facility] 17:35:00 17:35:00 results mindy Daugherty 15f-4d1f-b patricia DO, SANTHOSH [id number] Francesca nn 857246 9329-08-25 2016-05-09 lab nullFlavo Hemal [id number] -b [facility] 17:35:00 17:35:00 results mindy Daugherty 41b-4e07-b patricia DO, SANTHOSH maresa-05bdd9 Francesca nn 1d44fa 2016-05-09 2016-05-09 lab nullFlavo Hemal [id number] -f [facility] 17:35:00 17:35:00 results mindy Daugherty bd0-44b7-b patricia DO, SANTHOSH ada-feed46 Francesca nn 9ot621 2016-05-09 2016-05-09 lab nullFlavo Hemal [id number] -9 [facility] 17:35:00 17:35:00 results mindy Daugherty 15f-4d1f-b patricia DO, SANTHOSH [id number] Francesca nn 401482 6553-08-25 2016-05-09 lab nullFlavo Hemal [id number] -b [facility] 17:35:00 17:35:00 results mindy Daugherty 41b-4e07-b patricia DO, SANTHOSH 4da-05bdd9 Francesca nn 1d44fa 2016-05-09 2016-05-09 lab nullFlavo Hemal [id number] -f [facility] 17:35:00 17:35:00 results mindy Daugherty bd0-44b7-b l DO, SANTHOS[facility] ada-feed46 Francesca nn 3qo814 2016-05-09 2016-05-09 lab nullFlavo Hemal [id number] -f [facility] 16:35:00 16:35:00 results mindy Daugherty p09-64ox-7 l DO, PA 1s0-aj932t Francesca nn 34f5a8 2016-05-09 2016-05-09 lab nullFlavo Hemal [id number] -3 [facility] 16:35:00 16:35:00 results mindy Daugherty 368-492a-b l DO, PA bb2-mu7238 Francesca nn d27c6a 2016-05-09 2016-05-09 lab nullFlavo Hemal [id number] -f [facility] 16:35:00 16:35:00 results mindy Daugherty g25-21nz-6 l DO, PA 9f0-cq791k Francesca nn 34f5a8 2016-05-09 2016-05-09 lab nullFlavo Hemal [id number] -3 [facility] 16:35:00 16:35:00 results mindy Dat 368-492a-b l DO, PA bb2-ca3610 Francesca nn d27c6a 2016-05-09 2016-05-09 Outpatient Hemal Hemal [id number] [facility] 11:35:00 11:35:00 Dat Dauhgerty, l DO, PA DO, SANTHOSH Sandoval 2016-05-01 2016-05-01 Refill nullFlavo Hemal [id number] -3 [facility] 14:33:00 14:33:00 mindy Dat 2o6-5m8n-0 l DO, PA 7g2-8564c1 Francesca nn a24ea3 2016-05-01 2016-05-01 Refill nullFlavo Hemal [id number] -8 [facility] 14:33:00 14:33:00 mindy Daugherty 71d-43ea-b l DO, PA 45d-2d79ed Francesca nn 18ce9c 2016-05-01 2016-05-01 Refill nullFlavo Hemal [id number] -d [facility] 14:33:00 14:33:00 mindy Dat 88b-46bc-8 l DO, PA [id number] Francesca nn d2a5a1 2016-05-01 2016-05-01 Refill nullFlavo Hemal [id number] -d [facility] 14:33:00 14:33:00 r Dat, 88b-46bc-8 l DO, PA [id number]-l74135 Francesca nn d2a5a1 2016-05-01 2016-05-01 Refill nullFlavo Hemal [id number] -3 [facility] 14:33:00 14:33:00 r Dat, 3r2-3b0y-9 l DO, PA 0d6-7511m5 Francesca nn a24ea3 2016-05-01 2016-05-01 Refill nullFlavo Hemal [id number] -8 [facility] 14:33:00 14:33:00 r Dat, 71d-43ea-b l DO, PA 45d-2d79ed Francesca nn 18ce9c 2016-05-01 2016-05-01 Refill nullFlavo Hemal [id number] -f [facility] 13:33:00 13:33:00 r Dat af7-4fcc-8 l DO, PA m28-bn0i2j [facility]ca nn ed4be5 2016-05-01 2016-05-01 Refill nullFlavo Hemal [id number] -2 [facility] 13:33:00 13:33:00 mindy Daugherty 59e-457d-8 l DO, PA 06a-f3e08a Francesca nn 0422b7 2016-05-01 2016-05-01 Refill nullFlavo Hemal [id number] -d [facility] 13:33:00 13:33:00 r Dat 31a-4c7e-a l DO, PA 971-b4b8da Francesca nn 1ba7e8 2016-05-01 2016-05-01 Refill nullFlavo Hemal p954x4f3 -f [facility] 13:33:00 13:33:00 mindy Daugherty af7-4fcc-8 l DO, PA c04-vu5u2c Francesca nn ed4be5 2016-05-01 2016-05-01 Refill nullFlavo Hemal [id number] -2 [facility] 13:33:00 13:33:00 r Dat 59e-457d-8 l DO, PA 06a-f3e08a Francesca nn 0422b7 2016-05-01 2016-05-01 Refill nullFlavo Hemal 663cy7w7 -d [facility] 13:33:00 13:33:00 mindy Dat 31a-4c7e-a l DO, PA 971-b4b8da Francesca nn 1ba7e8 2016-05-01 2016-05-01 Outpatient Hemal Recio [id number] [facility] 08:33:00 08:33:00 Dat Daugherty, l DO, PA DO, PA Jaime 2016-02-13 2016-02-13 lab nullFlavo Hemal [id number] -a [facility] 21:04:00 21:04:00 results mindy Dat 5i0-00p6-2 l DO, PA 4bf-52n532 Francesca nn 4504e6 2016-02-13 2016-02-13 lab nullFlavo Hemal [id number] -2 [facility] 21:04:00 21:04:00 results mindy Dat 492-45bc-b l DO, PA 066-bac3c6 Francesca nn 99dff6 2016-02-13 2016-02-13 lab nullFlavo Hemal [id number] -7 [facility] 21:04:00 21:04:00 results mindy Daugherty 540-4db4-a l DO, PA 186-e3ab87 Francesca nn 3b50cb 2016-02-13 2016-02-13 lab nullFlavo Hemal [id number] -a [facility] 21:04:00 21:04:00 results mindy Dat 5j1-56a2-6 l DO, PA 4bf-72o307 Francesca nn 4504e6 2016-02-13 2016-02-13 lab nullFlavo Hemal [id number] -2 [facility] 21:04:00 21:04:00 results mindy Daugherty 492-45bc-b l DO, PA 066-bac3c6 Francesca nn 99dff6 2016-02-13 2016-02-13 lab nullFlavo Hemal [id number] -7 [facility] 21:04:00 21:04:00 results mindy Daugherty 540-4db4-a l DO, PA 186-e3ab87 Francesca nn 3b50cb 2016-02-13 2016-02-13 lab nullFlavo Hemal [id number] -8 [facility] 20:04:00 20:04:00 results mindy Daugherty 548-41ab-8 l DO, PA 13c-940ca9 Francesca nn bd80c4 2016-02-13 2016-02-13 lab nullFlavo Hemal [id number] -3 [facility] 20:04:00 20:04:00 results mindy Daugherty 298-4646-8 l DO, PA 5ca-5df2fb Francesca nn 1e87cc 2016-02-13 2016-02-13 lab nullFlavo Hemal [id number] -8 [facility] 20:04:00 20:04:00 results mindy Daugherty 548-41ab-8 l DO, PA 13c-940ca9 Francesca nn bd80c4 2016-02-13 2016-02-13 lab nullFlavo Hemal [id number] -3 [facility] 20:04:00 20:04:00 results mindy Daugherty 298-4646-8 l DO, PA 5ca-5df2fb Francesca nn 1e87cc 2016-02-13 2016-02-13 lab nullFlavo Hemal [id number] -b [facility] 20:04:00 20:04:00 results mindy Daugherty 630-46d2-8 l DO, PA 61b-e7ec40 Francesca nn 5ccabf 2016-02-13 2016-02-13 lab nullFlavo Hemal [id number] -9 [facility] 20:04:00 20:04:00 results mindy Daugherty 855-47dd-8 l DO, PA 059-03ac18 Francesca nn d6b61f 2016-02-13 2016-02-13 lab nullFlavo Hemal [id number] -b [facility] 20:04:00 20:04:00 results mindy Daugherty 630-46d2-8 l DO, PA 61b-e7ec40 Francesca nn 5ccabf 2016-02-13 2016-02-13 lab nullFlavo Hemal [id number] -9 [facility] 20:04:00 20:04:00 results mindy Daugherty 855-47dd-8 l DO, PA 059-03ac18 [facility] nn d6b61f 2016-02-13 2016-02-13 Outpatient Hemal Hemal [id number] [facility] 15:04:00 15:04:00 Dat Daugherty l DO, PA , SANTHOSH Sandoval 2016-01-02 2016-01-02 U/S nullFlavo Hemal [id number] -d [facility] 22:45:00 22:45:00 results mindy Daugherty 87b-45f1-b l DO, PA 662-cb9c4e Francesca a9fc43 2016-01-02 2016-01-02 U/S nullFlavo Hemal [id number] -0 [facility] 22:45:00 22:45:00 results mindy Daugherty 1j7-894g-9 l DO, PA 496-81af40 Francesca 91eebc 2016-01-02 2016-01-02 U/S nullFlavo Hemal [id number] -b [facility] 22:45:00 22:45:00 results mindy Daugherty 65e-41d5-a patricia DO, PA 18e-7c4a4c Francesca nn c2b40d 2016-01-02 2016-01-02 U/S nullFlavo Hemal [id number] -d [facility] 22:45:00 22:45:00 results mindy Daugherty 87b-45f1-b l DO, PA 662-cb9c4e Francesca nn a9fc43 2016-01-02 2016-01-02 U/S nullFlavo Hemal [id number] -0 [facility] 22:45:00 22:45:00 results mindy Daugherty 9v9-483u-3 l DO, PA 496-81af40 Francesca 91eebc 2016-01-02 2016-01-02 U/S nullFlavo Hemal 66f568p2 -b [facility] 22:45:00 22:45:00 results mindy Daugherty 65e-41d5-a l DO, PA 18e-7c4a4c Francesca nn c2b40d 2016-01-02 2016-01-02 U/S [facility] [id number] -4 [facility] 21:45:00 21:45:00 results mindy Daugherty bdb-4d96-a l DO, [place] fb7-b2bd1c Francesca nn [id number] 2016-01-02 2016-01-02 U/S [facility] [id number] -5 [facility] 21:45:00 21:45:00 results mindy Daugherty 5ee-4bbf-8 l DO, [place] [id number] Francesca nn 1c7ad3 2016-01-02 2016-01-02 U/S [facility] [id number] -6 [facility] 21:45:00 21:45:00 results mindy Daugherty 7ef-4a6d-a l DO, [place] [id number] Francesca nn e6c72a 2016-01-02 2016-01-02 U/S [facility] [id number] -c [facility] 21:45:00 21:45:00 results mindy Daugherty 9be-4bbf-b l DO, [place] [id number] Francesca nn [id number] 2016-01-02 2016-01-02 U/S [facility] [id number] -c [facility] 21:45:00 21:45:00 results mindy Daugherty 1db-4fcb-a l DO, [place] [id number]-[id number] Francesca nn [id number] 2016-01-02 2016-01-02 U/S [facility] [id number] -4 [facility] 21:45:00 21:45:00 results mindy Daugherty bdb-4d96-a l DO, [place] fb7-b2bd1c Francesca nn [id number] 2016-01-02 2016-01-02 U/S [facility] [id number] -5 [facility] 21:45:00 21:45:00 results mindy Daugherty 5ee-4bbf-8 l DO, [place] [id number] Francesca nn 1c7ad3 2016-01-02 2016-01-02 U/S [facility] [id number] -6 [facility] 21:45:00 21:45:00 results mindy Daugherty 7ef-4a6d-a patricia DO, SANTHOSH [id number] Francesca orozco e6c72a 2016-01-02 2016-01-02 U/S [facility] [id number] -c [facility] 21:45:00 21:45:00 results mindy Daugherty 9be-4bbf-b l DO, SANTH[facility] [id number]-b7ec80 Francesca nn 490bd5 2016-01-02 2016-01-02 U/S [facility] [id number] -c [facility] 21:45:00 21:45:00 results mindy Daugherty 1db-4fcb-a l DO, SANTH[facility] [id number] Francesca orozco [id number] 2016-01-02 2016-01-02 Outpatient [facility] [id number] [facility] 16:45:00 16:45:00 Dat Daugherty, patricia DO, SANTHOSH TREVIZO DO 2015-11-14 2015-11-14 Lab [facility] [id number] -f [facility] 22:12:00 22:12:00 results mindy Daugherty h04-0ibu-3 l DOSANTHOSH [id number] Francesca orozco [id number] 2015-11-14 2015-11-14 Lab [facility] [id number] -e [facility] 22:12:00 22:12:00 results mindy Daugherty 3cb-4852-b l DO, SANTH[facility] [id number] Francesca orozco [id number] 2015-11-14 2015-11-14 Lab [facility] [id number] -1 [facility] 22:12:00 22:12:00 results mindy Daugherty 825-4439-b l DOSANTHOSH dec-6de45c Francesca orozco [id number] 2015-11-14 2015-11-14 Lab [facility] [id number] -7 [facility] 22:12:00 22:12:00 results mindy Daugherty ca0-423e-8 l DO, [place] [id number] [facility] nn [id number] 2015-11-14 2015-11-14 Lab nullFlavo [facility]al [id number] -f [facility] 22:12:00 22:12:00 results mindy Daugherty z90-6emn-7 l DO, PA cdb-447349 [facility] nn bf62dc 2015-11-14 2015-11-14 Lab nullFlavo Hemal [id number] -e [facility] 22:12:00 22:12:00 results mindy Durbinyakov, 3cb-4852-b l DO, PA 654-sd5725 [facility] nn 614a50 2015-11-14 2015-11-14 Lab nullFlavo Hemal 2u5x3631 -1 [facility] 22:12:00 22:12:00 results mindy Johnathantaylor, 825-4439-b l DO, PA dec-6de45c [facility] nn ho5919 2015-11-14 2015-11-14 Lab nullFlavo Hemal m5538n4p -7 [facility] 22:12:00 22:12:00 results mindy Daugherty ca0-423e-8 l DO, PA 600-85817u [facility] nn o4s813 2015-11-14 2015-11-14 Lab nullFlavo Hemal z3bc78b5 -8 [facility] 21:12:00 21:12:00 results mindy Durbinyakov, 9t5-21lg-7 l DO, PA 6n5-7t29e0 [facility] nn 9cedaf 2015-11-14 2015-11-14 Lab nullFlavo Hemal 8md0d174 -e [facility] 21:12:00 21:12:00 results mindy Manntaylor, 59e-4e67-b l DO, PA 7df-68c39b [facility] nn 9515f7 2015-11-14 2015-11-14 Lab nullFlavo Hemal ci03u6y0 -2 [facility] 21:12:00 21:12:00 results mindy Daugherty, 562-4b3d-b l DO, PA z82-i08916 [facility] nn 476a39 2015-11-14 2015-11-14 Lab nullFlavo Hemal b4r17cwb -0 [facility] 21:12:00 21:12:00 results mindy Daugherty 7dd-4af6-9 l DO, PA 9z2-673678 [facility]ca a3cded 2015-11-14 2015-11-14 Lab nullFlavo Hemal 9yz26om7 -f [facility] 21:12:00 21:12:00 results mindy Daugherty 364-41dc-9 l DO, PA def-d4235d [facility] ernesto 0ri401 2015-11-14 2015-11-14 Lab nullFlavo Hemal s0jx27r6 -8 [facility] 21:12:00 21:12:00 results mindy Daugherty 9n2-73cv-2 l DO, PA 1s9-8m94s2 [facility] ernesto 9cedaf 2015-11-14 2015-11-14 Lab nullFlavo Hemal 4pt3f437 -e [facility] 21:12:00 21:12:00 results mindy Daugherty 59e-4e67-b l DO, PA 7df-68c39b [facility] ernesto 9515f7 2015-11-14 2015-11-14 Lab nullFlavo Hemal ge70s8y9 -2 [facility] 21:12:00 21:12:00 results mindy Daugherty 562-4b3d-b l DO, PA z24-c32531 Francesca orozco 476a39 2015-11-14 2015-11-14 Lab nullFlavo Hemal v9n06pps -0 [facility] 21:12:00 21:12:00 results mindy Daugherty 7dd-4af6-9 l DO, PA 0m2-004864 [facility] a3cded 2015-11-14 2015-11-14 Lab nullFlavo Hemal 1qq33pl6 -f [facility] 21:12:00 21:12:00 results mindy Daugherty 364-41dc-9 l DO, PA def-e9117a Francesca ernesto 2lm762 2015-11-14 2015-11-14 Outpatient Hemalmagan Recio [id number] [facility] 16:12:00 16:12:00 Dat Daugherty, l DO, PA DO, SANTHOSH Sandoval 2015-11-07 2015-11-07 Physical/C nullFlavo Hemal ff735 736-0 [facility] 16:00:00 16:00:00 onsult-con r Dat, 7n7-3kj7-j l f DO, PA 114-e3e23e Francesca nn 2958bb 2015-11-07 2015-11-07 Physical/C nullFlavo Hemal 81940 f56-5 [facility] 16:00:00 16:00:00 onsult-con r Dat, 98a-406e-a l f DO, PA 8ea-72c9e0 [facility]ca nn c4cdb0 2015-11-07 2015-11-07 Physical/C nullFlavo Hemal ab115 532-e [facility] 16:00:00 16:00:00 onsult-con r Dat, 243-4b3f-9 l f DO, PA 88e-8p4766 [facility] nn 2de57b 2015-11-07 2015-11-07 Physical/C nullFlavo Hemal ff735 736-0 [facility] 16:00:00 16:00:00 onsult-con r Dat, 6q7-0cw8-d l f DO, PA 114-e3e23e Francesca nn 2958bb 2015-11-07 2015-11-07 Physical/C nullFlavo Hemal 51724 f56-5 [facility] 16:00:00 16:00:00 onsult-con r Dat, 98a-406e-a l f DO, PA 8ea-72c9e0 Francesca nn c4cdb0 2015-11-07 2015-11-07 Physical/C nullFlavo Hemal ab115 532-e [facility] 16:00:00 16:00:00 onsult-con r Dat, 243-4b3f-9 l f DO, PA 88e-5x3810 Francesca nn 2de57b 2015-11-07 2015-11-07 Physical/C nullFlavo Hemal 4517f aee-1 [facility] 15:00:00 15:00:00 onsult-con r Dat, 13c-4a65-8 l f DO, PA 448-2f1bc6 [facility] nn 295c04 2015-11-07 2015-11-07 Physical/C nullFlavo Hemal 4517f aee-1 [facility] 15:00:00 15:00:00 onsult-con mindy Daugherty 13c-4a65-8 l f DO, SANTHOSH 448-2f1bc6 Francesca nn 295c04 2015-11-07 2015-11-07 Outpatient Hemal Hemal [id number] [facility] 10:00:00 10:00:00 Dat Daugherty, l DO, SANTHOSH TREVIZO DO 2015 2015 [facility] nullFlavo Hemal 0540ol05 -e [facility] 15:42:00 15:42:00 mindy Daugherty 96e-4e47-8 l DO, SANTHOSH kleine-f0a8c7 Francesca nn ed92b2 2015 2015 BP [facility] nullFlavo Hemal 538d7hz2 -a [facility] 15:42:00 15:42:00 mindy Daugherty h3q-0773-w l DO, SANTHOSH e1o-533u03 Francesca nn jmr668 2015 2015 [facility] nullFlavo Hemal 8398430o -8 [facility] 15:42:00 15:42:00 mindy Daugherty 0v7-877s-4 patricia DO, SANTHOSH 4b2-5diq3c Francesca nn 5o5057 2015 2015 BP med[facility] nullFlavo Hmeal 08945e07 -b [facility] 15:42:00 15:42:00 mindy Daugherty 045-48ab-a l DO, SANTHOSH 262-jns823 [facility] nn 824d8b 2015 2015 [facility] nullFlavo Hemal 2418jy28 -e [facility] 15:42:00 15:42:00 mindy Daugherty 96e-4e47-8 l DO, SANTHOSH shantell-f0a8c7 Francesca nn ed92b2 2015 2015 [facility] nullFlavo Hemal 862k7bf4 -a [facility] 15:42:00 15:42:00 mindy Daugherty q6l-9408-j l DO, PA u8x-788s21 [facility] nn gto711 2015 2015 [facility] nullFlavo Hemal 6099969n -8 [facility] 15:42:00 15:42:00 r Dat 7d6-834e-1 l DO, PA 9c4-4xvk5z [facility] nn 6z7286 2015 2015 [facility] nullFlavo Hemal 10779j31 -b [facility] 15:42:00 15:42:00 r Dat 045-48ab-a l DO, PA 262-smx338 [facility] nn 824d8b 2015 2015 BP meds nullFlavo Hemal 864s2fm6 -d [facility] 14:42:00 14:42:00 r Dat ed2-46e7-9 l DO, PA 502-7b8a6c [facility] nn 18adca 2015 2015 [facility] med[facility] nullFlavo Hemal 5d65k149 -3 [facility] 14:42:00 14:42:00 r Jocelyndelmis, cd2-4461-a l DO, PA 2x2-2kew8u [facility] nn 6t8504 2015 2015 [facility] nullFlavo Hemal c0nql2ca -5 [facility] 14:42:00 14:42:00 r Dat i58-3a3z-7 l DO, PA da0-9f535c [facility] nn 57a4e8 2015 2015 [facility] med[facility] nullFlavo Hemal 1593ur4y -3 [facility] 14:42:00 14:42:00 r Dat, c8y-693b-5 l DO, PA fe0-92fe16 [facility] nn 4u9291 2015 2015 [facility] nullFlavo Hemal 1a70ar66 -8 [facility] 14:42:00 14:42:00 r Dat 1s3-119s-c l DO, PA 330-7539c4 [facility] nn 1d674o 2015 2015 BP meds nullFlavo Hemal 1369032d -b [facility] 14:42:00 14:42:00 r Dat fcb-4d7d-8 l DO, PA 413-37a25c Francesca nn 08aef1 2015 2015 [facility] med[facility] nullFlavo Hemal 515d3wu3 -d [facility] 14:42:00 14:42:00 r Dat ed2-46e7-9 l DO, PA 502-7b8a6c Frances[facility] nn 18adca 2015 2015 [facility] nullFlavo Hemal 1p96o090 -3 [facility] 14:42:00 14:42:00 r Dat cd2-4461-a l DO, PA 8z1-8yxi4s [facility] nn 4w9195 2015 2015 [facility] null[facility]avo Hemal e4mte5xn -5 [facility] 14:42:00 14:42:00 r Dat y05-3y4k-5 l DO, PA da0-1a473z [facility] nn 57a4e8 2015 2015 [facility] nullFlavo Hemal 6542ic7r -3 [facility] 14:42:00 14:42:00 r Dat m7d-032n-5 l DO, PA fe0-92fe16 [facility] nn 7l7103 2015 2015 [facility] nullFlavo Hemal 9s73hf49 -8 [facility] 14:42:00 14:42:00 r Dat 2v5-045p-k l DO, PA 330-7539c4 [facility] nn 9r039q 2015 2015 [facility] med[facility] nullFlavo Hemal 1145590k -b [facility] 14:42:00 14:42:00 r Dat fcb-4d7d-8 l DO, PA 413-37a25c Francesca nn 08aef1 2015 2015 [facility] Hemal Hemal [id number] [facility] 09:42:00 09:42:00 Musajji, Musajji, l DO, PA DO, PA Jaime 2015-05-15 2015-05-15 Lab nullFlavo Hemal f4y193gz -4 [facility] 17:09:00 17:09:00 results mindy Daugherty o3m-9511-t l DO, PA 06d-53cf13 [facility] nn 78e68b 2015-05-15 2015-05-15 Lab nullFlavo Hemal n903tw18 -d [facility] 17:09:00 17:09:00 results mindy Daugherty y10-658b-k l DO, PA 8ba-19c6a9 [facility] nn c339b0 2015-05-15 2015-05-15 Lab nullFlavo Hemal [id number] -c [facility] 17:09:00 17:09:00 results mindy Daugherty 924-471e-9 l DO, PA 775-c386e1 [facility] nn 602c8f 2015-05-15 2015-05-15 Lab nullFlavo Hemal 79vrknq2 -a [facility] 17:09:00 17:09:00 results mindy Daugherty r12-8a21-1 l DO, PA cac-58e8b6 [facility] nn 611d33 2015-05-15 2015-05-15 Lab nullFlavo Hemal c2z163aw -4 [facility] 17:09:00 17:09:00 results mindy Daugherty x5w-3609-q l DO, PA 06d-53cf13 [facility] nn 78e68b 2015-05-15 2015-05-15 Lab nullFlavo Hemal r477jn30 -d [facility] 17:09:00 17:09:00 results mindy Daugherty l27-441e-g l DO, PA 8ba-19c6a9 [facility] nn c339b0 2015-05-15 2015-05-15 Lab nullFlavo Hemal [id number] -c [facility] 17:09:00 17:09:00 results minyd Daugherty 924-471e-9 l DO, PA 775-c386e1 [facility] nn 602c8f 2015-05-15 2015-05-15 Lab nullFlavo Hemal 35dwzoh1 -a [facility] 17:09:00 17:09:00 results mindy Daugherty x22-1s62-6 l DO, PA cac-58e8b6 [facility] 611d33 2015-05-15 2015-05-15 Lab nullFlavo Hemal [id number] -c [facility] 16:09:00 16:09:00 results mindy Daugherty z95-40i2-h l DO, PA 974-c7b4d5 [facility] 8ab9e7 2015-05-15 2015-05-15 Lab nullFlavo Hemal 686g7038 -9 [facility] 16:09:00 16:09:00 results mindy Daugherty f2p-527y-4 l DO, PA 8ab-d289b2 [facility] 77f2eb 2015-05-15 2015-05-15 Lab nullFlavo Hemal 10948ph6 -0 [facility] 16:09:00 16:09:00 results mindy Daugherty s6w-3u89-i l DO, PA t20-4h209i [facility] 44r749 2015-05-15 2015-05-15 Lab nullFlavo Hemal 444n163p -0 [facility] 16:09:00 16:09:00 results mindy Daugherty 634-494d-9 l DO, PA 71c-0u3387 [facility] m7v694 2015-05-15 2015-05-15 Lab nullFlavo Hemal 95264u97 -4 [facility] 16:09:00 16:09:00 results mindy Daugherty 850-4d54-9 l DO, PA x9i-y85a06 [facility] a215c2 2015-05-15 2015-05-15 Lab nullFlavo Hemal 36793zjc -a [facility] 16:09:00 16:09:00 results mindy Daugherty 796-4add-8 l DO, PA 4de-686d7e [facility] 462520 0753-08-31 2015-05-15 Lab nullFlavo Hemal 285lum64 -8 [facility] 16:09:00 16:09:00 results mindy Daugherty n8o-829r-c l DO, PA k85-078179 [facility] a83c40 2015-05-15 2015-05-15 Lab nullFlavo Hemal [id number] -c [facility] 16:09:00 16:09:00 results mindy Daugherty s41-52b1-c l DO, PA 974-c7b4d5 [facility] 8ab9e7 2015-05-15 2015-05-15 Lab nullFlavo Hemal 263q1742 -9 [facility] 16:09:00 16:09:00 results mindy Daugherty h7q-685t-4 l DO, PA 8ab-d289b2 [facility] 77f2eb 2015-05-15 2015-05-15 Lab nullFlavo Hemal 95476iw0 -0 [facility] 16:09:00 16:09:00 results mindy Daugherty a1r-0n93-o l DO, PA h65-0v528w [facility] 97x187 2015-05-15 2015-05-15 Lab nullFlavo Hemal 961a439d -0 [facility] 16:09:00 16:09:00 results mindy Daugherty 634-494d-9 l DO, PA 71c-5i3044 [facility] k7t460 2015-05-15 2015-05-15 Lab nullFlavo Hemal 10492f69 -4 [facility] 16:09:00 16:09:00 results mindy Daugherty 850-4d54-9 l DO, PA m3g-a95l00 [facility] a215c2 2015-05-15 2015-05-15 Lab nullFlavo Hemal 94151dlf -a [facility] 16:09:00 16:09:00 results mindy Daugherty 796-4add-8 l DO, PA 4de-686d7e [facility] 790989 4661-08-31 2015-05-15 Lab nullFlavo Hemal 146dbk48 -8 [facility] 16:09:00 16:09:00 results mindy Daugherty v8g-898i-t l DO, PA k21-903760 [facility] a83c40 2015-05-15 2015-05-15 Outpatient Hemalmagan Recio [id number] [facility] 11:09:00 11:09:00 Ramakrishna Daughertystonedelmis, l DO, PA DO, PA Jaime 2015-03-02 2015-03-02 FOBT nullFlavo Hemal hi2gx729 -d [facility] 17:48:00 17:48:00 r Dat, 042-4317-b l DO, PA 547-e9f8c2 [facility] nn 6e2a50 2015-03-02 2015-03-02 FOBT nullFlavo Hemal 02xecd99 -d [facility] 17:48:00 17:48:00 r Dat, 55a-419f-9 l DO, PA 445-cc63f1 [facility] nn 27a9ed 2015-03-02 2015-03-02 FOBT nullFlavo Hemal 14039150 -1 [facility] 17:48:00 17:48:00 r Dat, 80f-460f-b l DO, PA n87-imhc51 [facility] nn o47823 2015-03-02 2015-03-02 FOBT nullFlavo Hemal 8233cj28 -8 [facility] 17:48:00 17:48:00 r Dat, 387-452c-9 l DO, PA m71-894c91 [facility] nn b575d8 2015-03-02 2015-03-02 FOBT nullFlavo Hemal cq7ed858 -d [facility] 17:48:00 17:48:00 r Dat, 042-4317-b l DO, PA 547-e9f8c2 [facility] nn 6e2a50 2015-03-02 2015-03-02 FOBT nullFlavo Hemal 22ktyl53 -d [facility] 17:48:00 17:48:00 r Dat, 55a-419f-9 l DO, PA 445-cc63f1 [facility] nn 27a9ed 2015-03-02 2015-03-02 FOBT nullFlavo Hemal [id number] -1 [facility] 17:48:00 17:48:00 r Dat, 80f-460f-b l DO, PA b52-crlf29 [facility] nn i73981 2015-03-02 2015-03-02 FOBT nullFlavo Hemal 1514oa38 -8 [facility] 17:48:00 17:48:00 r Dat 387-452c-9 l DO, PA z45-796o02 Francesca orozco b575d8 2015-03-02 2015-03-02 FOBT nullFlavo Hemal 80el958w -5 [facility] 16:48:00 16:48:00 r Dat 8i8-24m1-z l DO, PA 930-9w5891 [facility] orozco f1ce54 2015-03-02 2015-03-02 FOBT nullFlavo Hemal 04bxy75l -5 [facility] 16:48:00 16:48:00 mindy Daugherty e42-7875-9 l DO, PA 811-c2q936 [facility] orozco 5ea3fb 2015-03-02 2015-03-02 FOBT nullFlavo Hemal 61zb204p -b [facility] 16:48:00 16:48:00 mindy Daugherty 288-40f9-a l DO, PA 7x0-f02974 [facility] orozco p43844 2015-03-02 2015-03-02 FOBT nullFlavo Hemal 5q1x126z -0 [facility] 16:48:00 16:48:00 r Dat w74-5d00-4 l DO, PA 7fa-9061a0 Francesca orozco ik0687 2015-03-02 2015-03-02 FOBT nullFlavo Hemal 46t8274j -3 [facility] 16:48:00 16:48:00 mindy Daugherty 6q2-045r-c l DO, PA 91a-c5a8a4 Francesca ernesto fn404d 2015-03-02 2015-03-02 FOBT nullFlavo Hemal 6878m723 -d [facility] 16:48:00 16:48:00 mindy Daugherty aac-4beb-9 l DO, PA 195-482271 Francesca orozco fca2da 2015-03-02 2015-03-02 FOBT nullFlavo Hemal iu010rk2 -5 [facility] 16:48:00 16:48:00 mindy Daugherty 3l6-6115-2 l DO, PA a99-5tg4v4 [facility] orozco 412948 6999-06-18 2015-03-02 FOBT nullFlavo Hemal 63er891k -5 [facility] 16:48:00 16:48:00 r Dat 8b2-10q1-p l DO, PA 930-9q2547 [facility] nn f1ce54 2015-03-02 2015-03-02 FOBT nullFlavo Hemal 82ifh80y -5 [facility] 16:48:00 16:48:00 r Dat t17-4797-1 l DO, PA 811-y9i006 [facility] nn 5ea3fb 2015-03-02 2015-03-02 FOBT nullFlavo Hemal 87rd052n -b [facility] 16:48:00 16:48:00 r Dat 288-40f9-a l DO, PA 7c6-g97805 [facility] nn n79802 2015-03-02 2015-03-02 FOBT nullFlavo Hemal 2y1e420z -0 [facility] 16:48:00 16:48:00 r Dat d71-0v42-9 l DO, PA 7fa-9061a0 [facility] nn bn6909 2015-03-02 2015-03-02 FOBT nullFlavo Hemal 84f7416a -3 [facility] 16:48:00 16:48:00 r Dat 6b8-816k-i l DO, PA 91a-c5a8a4 [facility] nn xx256h 2015-03-02 2015-03-02 FOBT nullFlavo Hemal 4433z372 -d [facility] 16:48:00 16:48:00 r Dat aac-4beb-9 l DO, PA 195-792617 [facility] nn fca2da 2015-03-02 2015-03-02 FOBT nullFlavo Hemal sb804oh1 -5 [facility] 16:48:00 16:48:00 r Dat 7v3-2004-4 l DO, PA z64-3pg1v6 [facility] nn 493912 6387-06-08 2015-02-20 Ferraitin nullFlavo Hemal c4a32f 40-4 [facility] 19:58:00 19:58:00 Results mindy Daugherty 373-4adc-b l DO, PA 643-819155 [facility] c86fe2 2015-02-20 2015-02-20 Ferraitin nullFlavo Hemal tb8053 d6-1 [facility] 19:58:00 19:58:00 Results mindy Manntaylor 6l8-5c76-t l DO, PA 260-ee62a9 [facility] k7s908 2015-02-20 2015-02-20 [facility] nullFlavo Hemal 550a34 3e-4 [facility] 19:58:00 19:58:00 Results mindy Daugherty bd3-459b-a l DO, PA i1i-83a10o [facility] 253f32 2015-02-20 2015-02-20 [facility]in nullFlavo Hemal e80ddf ea-b [facility] 19:58:00 19:58:00 Results mindy Daugherty 1q5-71uz-5 l DO, PA n6z-288dh2 [facility] 4123ec 2015-02-20 2015-02-20 [facility]in nullFlavo Hemal c4a32f 40-4 [facility] 19:58:00 19:58:00 Results mindy Dat 373-4adc-b l DO, PA 643-592608 [facility] c86fe2 2015-02-20 2015-02-20 Fer[facility]in nullFlavo Hemal mq8616 d6-1 [facility] 19:58:00 19:58:00 Results mindy Dat 9k0-8q33-x l DO, PA 260-ee62a9 [facility] y4i127 2015-02-20 2015-02-20 [facility]in nullFlavo Hemal 550a34 3e-4 [facility] 19:58:00 19:58:00 Results mindy Daugherty bd3-459b-a l DO, PA h2s-69v02n [facility] 253f32 2015-02-20 2015-02-20 [facility]in nullFlavo Hemal e80ddf ea-b [facility] 19:58:00 19:58:00 Results mindy Daugherty 5w9-09we-3 l DO, PA f6k-778pd0 [facility] nn 4123ec 2015-02-20 2015-02-20 [facility] nullFlavo Hemal ab4ae9 58-8 [facility] 18:58:00 18:58:00 Results mindy Daugherty g79-0jpv-9 l DO, PA 223-4va912 [facility] nn f68ca7 2015-02-20 2015-02-20 [facility] nullFlavo Hemal o4650y 94-e [facility] 18:58:00 18:58:00 Results mindy Mannpamelayakov f37-7o81-a l DO, PA 514-cba7ca [facility] nn f423b5 2015-02-20 2015-02-20 [facility] nullFlavo Hemal 1aaaf7 8b-c [facility] 18:58:00 18:58:00 Results mindy Mannpamelastonedelmis, ad5-4820-a l DO, PA 559-b7a3e3 [facility] nn d78aa2 2015-02-20 2015-02-20 [facility] nullFlavo Hemal 1vy675 e5-0 [facility] 18:58:00 18:58:00 Results mindy Manntaylor, 13f-4c79-b l DO, PA 1i8-20g6tz [facility] nn 148592 2277-06-08 2015-02-20 [facility] nullFlavo Hemal 43eb37 e8-a [facility] 18:58:00 18:58:00 Results mindy Banksdelmis, 428-435c-a l DO, PA w8n-8305b7 [facility] nn 18a4b4 2015-02-20 2015-02-20 [facility]in nullFlavo Hemal 9bead6 58-8 [facility] 18:58:00 18:58:00 Results mindy Daugherty 717-4dfb-9 l DO, PA c32-44qk09 [facility] nn aea4bf 2015-02-20 2015-02-20 [facility] nullFlavo Hemal 259e9b 1a-4 [facility] 18:58:00 18:58:00 Results mindy Daugherty 759-476f-8 l DO, PA 861-2e0d19 [facility] nn f91cee 2015-02-20 2015-02-20 [facility]in nullFlavo Hemal ab4ae9 58-8 [facility] 18:58:00 18:58:00 Results mindy Daugherty v95-8tjk-3 l DO, PA 223-5hh362 [facility] nn f68ca7 2015-02-20 2015-02-20 [facility] nullFlavo Hemal k9723k 94-e [facility] 18:58:00 18:58:00 Results mindy Daugherty k90-5l91-j l DO, PA 514-cba7ca [facility] nn f423b5 2015-02-20 2015-02-20 [facility] nullFlavo Hemal 1aaaf7 8b-c [facility] 18:58:00 18:58:00 Results mindy Daugherty ad5-4820-a l DO, PA 559-b7a3e3 [facility] nn d78aa2 2015-02-20 2015-02-20 [facility] nullFlavo Hemal 0ys837 e5-0 [facility] 18:58:00 18:58:00 Results mindy Daugherty 13f-4c79-b l DO, PA 9x1-55o3ez [facility] nn 650965 3691-06-08 2015-02-20 [facility] nullFlavo Hemal 43eb37 e8-a [facility] 18:58:00 18:58:00 Results mindy Daugherty 428-435c-a l DO, PA y0u-1215b1 [facility] nn 18a4b4 2015-02-20 2015-02-20 [facility] nullFlavo Hemal 9bead6 58-8 [facility] 18:58:00 18:58:00 Results mindy Daugherty 717-4dfb-9 l DO, PA r81-69vo85 [facility] nn aea4bf 2015-02-20 2015-02-20 [facility] nullFlavo Hemal 259e9b 1a-4 [facility] 18:58:00 18:58:00 Results mindy Daugherty 759-476f-8 l DO, PA 861-2e0d19 [facility] nn f91cee 2015-02-13 2015-02-13 Lab nullFlavo Hemal 5477u00r -c [facility] 17:33:00 17:33:00 results mindy Daugherty r47-3je3-g l DO, PA c73-6b0121 [facility] nn 4dbe97 2015-02-13 2015-02-13 Lab nullFlavo Hem[facility] qpc0l7t9 -f [facility] 17:33:00 17:33:00 results mindy Daugherty 513-4387-9 l DO, PA 9h3-696bu6 [facility] nn z8g237 2015-02-13 2015-02-13 Lab nullFlavo Hemal i934jy08 -b [facility] 17:33:00 17:33:00 results mindy Daugherty 29b-42c5-8 l DO, PA v6o-436p0i [facility] nn 5ddf36 2015-02-13 2015-02-13 Lab nullFlavo Hem[facility] 4e9331mj -3 [facility] 17:33:00 17:33:00 results mindy Daugherty t76-871p-3 l DO, PA r52-o35904 [facility] nn 917e8a 2015-02-13 2015-02-13 Lab nullFlavo Hem[facility] 1445n29o -c [facility] 17:33:00 17:33:00 results freddie Madrigal99-4fd3-b l DO, PA g19-2b9776 [facility] nn 4dbe97 2015-02-13 2015-02-13 Lab nullFlavo Hem[facility] rua0j6a2 -f [facility] 17:33:00 17:33:00 results mindy Daugherty 513-4387-9 l DO, PA 3k6-057oe5 [facility] nn x0s709 2015-02-13 2015-02-13 Lab nullFlavo Hem[facility] w645ui38 -b [facility] 17:33:00 17:33:00 results mindy Daugherty 29b-42c5-8 l DO, PA a5p-828p7h [facility] nn 5ddf36 2015-02-13 2015-02-13 Lab nullFlavo Hemal 4h8129iw -3 [facility] 17:33:00 17:33:00 results mindy Daugherty p67-882l-6 l DO, PA w40-k66252 [facility] 917e8a 2015-02-13 2015-02-13 Lab nullFlavo Hemal 001gdvr3 -d [facility] 16:33:00 16:33:00 results mindy Dat w46-40x1-9 l DO, PA u11-i561c1 [facility] nn 3db4e5 2015-02-13 2015-02-13 Lab nullFlavo Hemal 9312mr88 -7 [facility] 16:33:00 16:33:00 results mindy Dat 6m9-99g4-2 l DO, PA 103-n44176 [facility] eabfec 2015-02-13 2015-02-13 Lab nullFlavo Hemal 2384123k -9 [facility] 16:33:00 16:33:00 results mindy Dat 729-41d5-9 l DO, PA [id number] [facility] [id number] 2015-02-13 2015-02-13 Lab nullFlavo Hemal [id number] -1 [facility] 16:33:00 16:33:00 results mindy Dat 269-45ba-8 l DO, [place] 40b-19df80 [facility] [id number] 2015-02-13 2015-02-13 Lab nullFlavo Hemal [id number] -3 [facility] 16:33:00 16:33:00 results mindy Dat 8ad-4fbf-a l DO, PA s8s-351085 [facility] nn 40da7b 2015-02-13 2015-02-13 Lab nullFlavo Hemal [id number] -8 Memoria 16:33:00 16:33:00 results mindy Daugherty aa2-4df6-a l DO, [place] 22a-3fb5fb [facility] nn 270d8b 2015-02-13 2015-02-13 Lab nullFlavo Hemal [id number] -a [facility] 16:33:00 16:33:00 results mindy Daugherty 5ff-45b9-8 l DO, [place] [id number] Francesca nn 2415f9 2015-02-13 2015-02-13 Lab nullFlavo Hemal [id number] -d [facility] 16:33:00 16:33:00 results mindy Daugherty p01-49p3-1 l DO, [place] n67-z263o5 Francesca nn 3db4e5 2015-02-13 2015-02-13 Lab nullFlavo Hemal [id number] -7 [facility] 16:33:00 16:33:00 results mindy Daugherty 8d4-70v4-4 l DO, PA [id number]-c49801 Francesca nn eabfec 2015-02-13 2015-02-13 Lab nullFlavo Hemal [id number] -9 [facility] 16:33:00 16:33:00 results mindy Daugherty 729-41d5-9 l DO, [place] [id number] Francesca nn f37ec9 2015-02-13 2015-02-13 Lab nullFlavo Hemal [id number] -1 [facility] 16:33:00 16:33:00 results mindy Daugherty 269-45ba-8 l DO, [place] 40b-19df80 Francesca nn [id number] 2015-02-13 2015-02-13 Lab nullFlavo Hemal [id number] -3 [facility] 16:33:00 16:33:00 results mindy Daugherty 8ad-4fbf-a l DO, [place] g2k-175755 Francesca nn 40da7b 2015-02-13 2015-02-13 Lab nullFlavo Hemal [id number] -8 [facility] 16:33:00 16:33:00 results mindy Daugherty aa2-4df6-a l DO, [place] 22a-3fb5fb [facility] nn 270d8b 2015-02-13 2015-02-13 Lab nullFlavo Hemal [id number] -a [facility] 16:33:00 16:33:00 results mindy Daugherty 5ff-45b9-8 l DO, PA 963-09a215 Francesca nn 2415f9 2015-02-09 2015-02-09 copay nullFlavo Hemal [id number] -1 [facility] 17:07:00 17:07:00 mindy Daugherty 6fb-47f3-b l DO, [place] 45c-0dee5b Francesca nn [id number] 2015-02-09 2015-02-09 copay nullFlavo Hemal [id number] -9 [facility] 17:07:00 17:07:00 r Dat 5ba-4ff2-8 l DO, [place] ad3-0o5638 Francesca nn b79c34 2015-02-09 2015-02-09 copay nullFlavo Hemal [id number] -d [facility] 17:07:00 17:07:00 r Dat c62-40r6-v l DO, [place] k99-03ljg0 Francesca nn 408700 8109-05-28 2015-02-09 copay nullFlavo Hemal [id number] -e [facility] 17:07:00 17:07:00 r Dat u51-99l7-e l DO, [place] 4s4-0oz9i4 Francesca nn 07b200 2015-02-09 2015-02-09 copay nullFlavo Hemal [id number] -e [facility] 17:07:00 17:07:00 r Dat f87-57u3-s l DO, [place] 6j5-4mg8d8 Francesca nn 79m422 2015-02-09 2015-02-09 copay nullFlavo Hemal [id number] -1 [facility] 17:07:00 17:07:00 r Dat 6fb-47f3-b l DO, PA 45c-0dee5b Francesca nn [id number] 2015-02-09 2015-02-09 copay nullFlavo Hemal [id number] -9 [facility] 17:07:00 17:07:00 r Dat 5ba-4ff2-8 l DO, [place] ad3-0x2725 Francesca nn b79c34 2015-02-09 2015-02-09 copay nullFlavo Hemal [id number] -d [facility] 17:07:00 17:07:00 r Dat h63-06v3-o l DO, PA i82-77bkq5 Francesca nn [id number] 0041-05-28 2015-02-09 copay nullFlavo Hemal [id number] -9 [facility] 16:07:00 16:07:00 r Dat 22e-457a-8 l DO, PA j5g-305906 Francesca nn 3d7b9d 2015-02-09 2015-02-09 copay nullFlavo Hemal [id number] -1 [facility] 16:07:00 16:07:00 r Dat, 06a-462d-9 l DO, PA 577-121cd0 Francesca nn b804aa 2015-02-09 2015-02-09 copay nullFlavo Hemal [id number] -4 [facility] 16:07:00 16:07:00 r Dat, 860-4ab3-8 l DO, PA aff-f9b10e Francesca nn [id number] 2015-02-09 2015-02-09 copay nullFlavo Hemal [id number] -8 [facility] 16:07:00 16:07:00 r Dat, 067-4135-b l DO, PA 19c-4e41d4 Francesca nn f653d4 2015-02-09 2015-02-09 copay nullFlavo Hemal [id number] -4 [facility] 16:07:00 16:07:00 r Dat, 0z1-8y03-j l DO, [place] 0f5-748t7o Francesca nn 0c0fa5 2015-02-09 2015-02-09 copay nullFlavo Hemal [id number] -c [facility] 16:07:00 16:07:00 r Dat de4-47b6-9 l DO, PA 70e-8mf410 Francesca nn [id number] 2015-02-09 2015-02-09 copay nullFlavo Hemal [id number] -9 [facility] 16:07:00 16:07:00 r Dat, 8bf-4a40-8 l DO, [place] q52-4y3ksz Francesca nn [id number] 2015-02-09 2015-02-09 copay nullFlavo Hemal [id number] -9 [facility] 16:07:00 16:07:00 r Dat, 22e-457a-8 l DO, PA d5s-744102 Francesca nn 3d7b9d 2015-02-09 2015-02-09 copay nullFlavo Hemal [id number] -1 [facility] 16:07:00 16:07:00 r Dat 06a-462d-9 l DO, PA 577-121cd0 Francesca nn b804aa 2015-02-09 2015-02-09 copay nullFlavo Hemal [id number] -4 [facility] 16:07:00 16:07:00 r Dat 860-4ab3-8 l DO, [place] aff-f9b10e Francesca nn 5x0543 2015-02-09 2015-02-09 copay nullFlavo Hemal [id number] -8 [facility] 16:07:00 16:07:00 r Dat 067-4135-b l DO, PA 19c-4e41d4 Francesca nn f653d4 2015-02-09 2015-02-09 copay nullFlavo Hemal [id number] -4 [facility] 16:07:00 16:07:00 r Dat, 4m2-5i85-g l DO, [place] 1s9-303y0j Francesca nn [id number] 2015-02-09 2015-02-09 copay nullFlavo Hemal [id number] Memoria 16:07:00 16:07:00 r Dat [id number] l DO, PA [id number] Francesca nn [id number] 2015-02-09 2015-02-09 copay nullFlavo Hemal [id number] Memoria 16:07:00 16:07:00 r Dat, [id number] l DO, PA [id number] Francesca nn [id number] Results This patient has no known results.
--- NOTE | 2022-06-16 10:34 | ER ---
Nurse's Notes [facility] Name: Rodrigue Medina Age: 72 yrs Sex: Male : 1950 Arrival Date: 06/16/2022 Time: 09:22 Bed 23 Private MD: Diagnosis: Cutaneous Abscess of the Scalp Presentation: 06/16 09:50 Chief complaint: Patient states: Boil to right posterior aspect of scalp x 4 days. jl7 Coronavirus screen: Vaccine status: Patient reports receiving the 2nd dose of the covid vaccine. At this time, the client does not indicate any symptoms associated with coronavirus-19. Ebola Screen: No symptoms or risks identified at this time. Initial Sepsis Screen: Does the patient meet any 2 criteria? No. Patient's initial sepsis screen is negative. Does the patient have a suspected source of infection? No. Patient's initial sepsis screen is negative. Risk Assessment: Do you want to hurt yourself or someone else? Patient reports no desire to harm self or others. Onset of symptoms was June 13, 2022. 09:50 Method Of Arrival: Ambulatory [facility] 09:50 Acuity: LIBBY 3 jl7 Triage Assessment: 09:52 General: Appears in no apparent distress. uncomfortable, Behavior is calm, cooperative, jl7 appropriate for age. Pain: Complains of pain in scalp. Historical: - Allergies: 09:52 No Known Allergies; jl7 - Home Meds: 09:52 Metformin Oral [Active]; tamsulosin 0.4 mg oral cap [Active]; gabapentin oral [Active]; jl7 Lasix Oral [Active]; olmesartan oral [Active]; - PMHx: 09:52 Diabetes mellitus; Hypertensive disorder; Congestive heart failure; jl7 - Immunization history:: Client reports receiving the 2nd dose of the Covid vaccine. - Social history:: Smoking status: Patient denies any tobacco usage or history of. Screenin:41 Abuse screen: Denies threats or abuse. Nutritional screening: No deficits noted. bm7 Tuberculosis screening: No symptoms or risk factors identified. Fall Risk None identified. Assessment: 10:41 Reassessment: No changes from previously documented assessment. bm7 Vital Signs: 09:50 BP 124 / 84; Pulse 73; Resp 17; Temp 98.2; Pulse Ox 100% ; Weight 88.45 kg; Height 5 jl7 ft. 11 in. (180.34 cm); Pain 06/24; 09:50 Body Mass Index 27.20 (88.45 kg, 180.34 cm) 7 ED Course: 09:22 Patient arrived in ED. as 09:51 Triage completed. jl7 09:52 Arm band placed on right wrist. 7 09:55 Kirit Grant PA is PHCP. [facility] 09:55 Fabrizio Valle MD is Attending Physician. [facility] 10:01 Marisa Arreola, RN is Primary Nurse. bm7 10:33 Shahram Jeter MD is Referral Physician. m 10:41 Patient has correct armband on for positive identification. bm7 10:41 Assist provider with I \T\ D: of an abscess on Set up I\T\D tray. Performed by Kirit Grant 7 SANTHOSH Dressing with 4X4s, Patient tolerated well. Patient did not have IV access during this emergency room visit. Administered Medications: 10:26 Drug: Lidocaine (1 %) 20 ml Volume: 20 ml; Route: Infiltration; 7 10:42 Follow up: Response: No adverse reaction bm7 Medication: 10:41 VIS not applicable for this client. bm7 Outcome: 10:33 Discharge ordered by . [facility] 10:41 Discharged to home ambulatory, with family. 7 10:41 Condition: good 10:41 Discharge instructions given to patient, family, Instructed on discharge instructions, follow up and referral plans. medication usage, Demonstrated understanding of instructions, follow-up care, medications, Prescriptions given X 3. 10:42 Patient left the ED. 7 Signatures: Kirit Grant PA PA jmm Martinez, Amelia as Leal, Jahala, RN RN 7 Marisa Arreola, RN RN bm7 Corrections: (The following items were deleted from the chart) 09:53 09:52 PMHx: Chronic obstructive lung disease; [place] [id number]
--- NOTE | 2022-06-16 10:34 | EDPHYS ---
Physician Documentation [facility] Name: Rodrigue Medina Age: 72 yrs Sex: Male : 1950 Arrival Date: 06/16/2022 Time: 09:22 Bed 23 Private MD: ED Physician Fabrizio Valle HPI: 06/16 10:30 This 72 yrs old Black Male presents to ER via Ambulatory with complaints of Boil. jmm 10:30 the patient presents with a swollen area of the scalp. Onset: The symptoms/episode jmm began/occurred gradually. Possible cause(s): unknown. Associated signs and symptoms: Pertinent positives: drainage, erythema. This is a 72 year old male with a history of dm, htn, chf that presents to the ED with complaints of scalp pain and swelling. Patient placed margi to allow it to drain. Currently not on abx. Denies fever or chills. . Historical: - Allergies: 09:52 No Known Allergies; jl7 - Home Meds: 09:52 Metformin Oral [Active]; tamsulosin 0.4 mg oral cap [Active]; gabapentin oral [Active]; jl7 Lasix Oral [Active]; olmesartan oral [Active]; - PMHx: 09:52 Diabetes mellitus; Hypertensive disorder; Congestive heart failure; jl7 - Immunization history:: Client reports receiving the 2nd dose of the Covid vaccine. - Social history:: Smoking status: Patient denies any tobacco usage or history of. ROS: 10:30 Constitutional: Negative for fever, chills, and weight loss, Cardiovascular: Negative jmm for chest pain, palpitations, and edema, Respiratory: Negative for shortness of breath, cough, wheezing, and pleuritic chest pain. 10:30 Skin: Positive for erythema, swelling. 10:30 All other systems are negative. Exam: 10:30 Constitutional: This is a well developed, well nourished patient who is awake, alert, jmm and in no acute distress. 10:30 ENT: Moist Mucus Membranes Neck: Trachea midline, Supple Chest/axilla: Normal chest wall appearance and motion. Cardiovascular: Regular rate and rhythm. No edema appreciated Respiratory: Normal respirations, no respiratory distress appreciated Abdomen/GI: Non distended Back: Normal ROM Skin: General appearance color normal MS/ Extremity: Moves all extremities, no obvious deformities appreciated, no edema noted to the lower extremities Neuro: Awake and alert Psych: Behavior is normal, Mood is normal, Patient is cooperative and pleasant 10:30 Head/face: posterior scalp abscess noted with slight drainage. . Vital Signs: 09:50 BP 124 / 84; Pulse 73; Resp 17; Temp 98.2; Pulse Ox 100% ; Weight 88.45 kg; Height 5 jl7 ft. 11 in. (180.34 cm); Pain 10; 09:50 Body Mass Index 27.20 (88.45 kg, 180.34 cm) 7 MDM: 09:56 Patient medically screened. [facility] 10:33 Data reviewed: vital signs, nurses notes. Counseling: I had a detailed discussion with [facility] the patient and/or guardian regarding: the historical points, exam findings, and any diagnostic results supporting the discharge/admit diagnosis, the need for outpatient follow up, to return to the emergency department if symptoms worsen or persist or if there are any questions or concerns that arise at home. Administered Medications: 10:26 Drug: Lidocaine (1 %) 20 ml Volume: 20 ml; Route: Infiltration; banner 10:42 Follow up: Response: No adverse reaction banner Disposition Summary: 06/16/22 10:33 Discharge Ordered Location: Home [facility] Condition: Stable [facility] Diagnosis - Cutaneous Abscess of the Scalp [facility] Followup: [facility] - With: Shahram Jeter MD - When: As needed - Reason: Recheck today's complaints, Continuance of care, Re-evaluation by your physician Discharge Instructions: - Discharge Summary Sheet [facility] - Skin Abscess [facility] Forms: - Medication Reconciliation Form [facility] - Thank You Letter [facility] - Antibiotic Education [facility] - Prescription Opioid Use [facility] Prescriptions: - Ultracet 37.5-325 mg Oral Tablet - take 1 tablet by ORAL route every 6 hours - for up to 5 days; do not exceed 8 jmm tablets per day.; 12 tablet; Refills: 0, Product Selection Permitted - Doxycycline Hyclate 100 mg Oral Tablet - take 1 tablet by ORAL route every 12 hours; 20 tablet; Refills: 0, Product [facility] Selection Permitted - Bactrim DS 800-160 mg Oral Tablet - take 1 tablet by ORAL route every 12 hours for 10 days; 20 tablet; Refills: 0, [facility] Product Selection Permitted Signatures: Leonard, Fabrizio, Kirit Lynn MD, cha, PA PA jmm Leal, Jahala, RN RN jl7 Marisa Arreola RN RN bm7 Corrections: (The following items were deleted from the chart) 09:53 09:52 PMHx: Chronic obstructive lung disease; jl7 jl7
[2022-06-16 11:19] VITALS: BP 124/84; TEMP 98.2; O2SAT 100
== END 2022-06-16 10:42 | disposition home or self-care (01) ==
LOC: ER 09:19
PROC: 0H90XZZ Drainage of Scalp Skin, External Approach (ICD-10-PCS; principal; 2022-06-16)
DX: L02.811 Cutaneous abscess of head [any part, except face] (principal); E11.9 Type 2 diabetes mellitus without complications; I11.0 Hypertensive heart disease with heart failure; I50.9 Heart failure, unspecified; Z79.899 Other long term (current) drug therapy
CPT/HCPCS: 99283

== ENCOUNTER 2023-08-11 13:51 | Emergency (ER) | payer OTHER ==
--- OUTSIDE RECORDS SUMMARY | 2023-08-11 13:56 | XMS REPORT | Continuity of Care Document ---
:1950 Author Organization [facility] t Address [address] [place] [address] [place] [id number] Care Team Providers Name Role Phone Unavailable Unavailable Unavailable Payers Payer Name Policy Type Policy Number Effective Date Expiration Date S ource MEDICARE PART B [facility] [id number] * Problems Condition Condition Condition Status Onset Resolution Last Treating Co mments Source Name Details Category Date Date Treatment Clinician Date Chronic Chronic Problem Active 2020-08-22 Me moria kidney kidney 03:16:43 l disease, disease, Awais n stage 3, stage 3, mod mod decreased decreased GFR GFR Active Problem 08/22/2020 Hemal Pinedo 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:03: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 Problem 05/22/2019 Hemal Pinedo Hypertensi Hypertens Diagnosis Active 2020-02-22 Memoria ve heart prince heart 02:06:20 l and and Jaime chronic chronic 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 and stage and stage 1-4 1-4 chronic chronic kidney kidney disease disease Active Diagnosis 02/22/2020 Hemal Pinedo BMI BMI Problem Active 2022-03-01 Memor ia 28.0-28.9, 28.0-28.9, 02:01:41 l adult adult Jaime Active Problem 03/01/2022 Hemal Pinedo Diabetes Diabetes Problem Active 2022-03-01 Memoria mellitus mellitus 02:01:41 l 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 Problem 03/01/2022 Hemal Pinedo Diabetes Diabetes Problem Active 2022-03-01 Memoria Mellitus Mellitus 02:01:41 l 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 Active Problem 03/01/2022 Hemal Gaytanaji Vitamin D Vitamin D Diagnosis Active 2022-03-01 Memoria deficiency deficiency 02:01:41 l Active [place] Diagnosis 03/01/2022 Hemal Khris Diabetes Diabetes Diagnosis Active 2022-03-01 Memoria mellitus mellitus 02:01:41 l 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 Active Diagnosis 03/01/2022 Hemal Khris BMI BMI Diagnosis Active 2022-03-01 Mem oria 27.0-27.9, 27.0-27.9, 02:01:41 l adult adult Jaime Active Diagnosis 03/01/2022 Hemal Khris 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 02:01:41 l a Active [place] Problem 03/01/2022 Hemal Pinedo Iron Iron Problem Active 2022-03-01 Memor ia deficiency deficiency 02:01:41 l anemia anemia [place] Active Problem 03/01/2022 Hemal Khris Internal Internal Problem Active 2022-03-01 Memoria hemorrhoid hemorrhoid 02:01:41 l s s Active [place] Problem 03/01/2022 Hemal Khris Diverticul Diverticu Problem Active 2022-03-01 Memoria osis losis 02:01:41 l Active [place] Problem 03/01/2022 Hemal Khris Hyperchole Hyperchol Diagnosis Active 2022-03-01 Memoria steremia esteremia 02:01:41 l Active [place] Diagnosis 03/01/2022 Hemal Pinedo History of History Diagnosis Active 2022-03-01 Memoria colon of colon 02:01:41 l cancer cancer [place] Active Diagnosis 03/01/2022 Hemal Khris Type 2 [...] NOT USE NOT USE Active Problem 06/20/2020 Hemal Khris Diabetes Diabetes Problem Active 2022-03-01 Memoria Type 2 w Type 2 w 02:01:41 l diabetic diabetic Awais n peripheral peripheral angiopath 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 w/o gangrene gangrene Active Problem 03/01/2022 Hmeal Khris Elevated Elevated Problem Active 2022-03-01 Memoria AST (SGOT) AST (SGOT) 02:01:41 l Active [place] Problem 03/01/2022 Hemal Pinedo Ataxia Ataxia Problem Active 2022-03-01 Mem oria Active 02:01:41 l Problem Jaime 03/01/2022 Hemal Pinedo Microalbum Microalbu Problem Active 2022-03-01 Memoria inuria minuria 02:01:41 l Active [place] Problem 03/01/2022 Hemal Khris Diabetes Diabetes Problem Active 2020-05-10 Memoria Mellitus Mellitus 02:02:20 l Type 2 Type 2 [place]ime with other with other Diabetic Diabetic Kidney Kidney Complicati Complicati on on Active Problem 05/10/2020 Hemal Pinedo Prostate Prostate Diagnosis Active 2021-04-28 Memoria cancer cancer 02:00:28 l screening screening Herm larry Active Diagnosis 04/28/2021 Hemal Pinedo Routine [facility]ine [facility] medical medical Jaime examinatio examinatio n at a n at a [facility] care care facility facility Active Diagnosis 11/24/2021 Hemal Pinedo Adverse Adverse Problem Active 2022-03-01 Me moria effect of effect of 02:01:41 l antihyperl antihyperl He rmann ipidemic ipidemic and and antiarteri antiarteri osclerotic osclerotic drugs, drugs, initial initial encounter encounter Active Problem 03/01/2022 Hemal Pinedo Increased Increased Problem Active 2022-03-01 Memoria creatine creatine 02:01:41 l kinase kinase Jaime level level Active Problem 03/01/2022 Hemal Pinedo Hypertensi Hypertens Diagnosis Active 2022-03-01 Memoria ve heart prince heart 02:01:41 l and and Jaime chronic chronic kidney kidney disease disease stage [...] Jaime Active Diagnosis 06/20/2020 Hemal Pinedo Bilateral Diagnosis Active 2021-04-28 Memoria swelling Bilateral 02:00:28 l of feet swelling [place]ime of feet Active Diagnosis 04/28/2021 Hemal Pinedo Chronic Chronic Problem Active 2022-03-01 Me moria kidney kidney 02:01:41 l disease, disease, Awais n stage 3a stage 3a Active Problem 03/01/2022 Hemal Pinedo BMI BMI Problem Active 2022-03-01 Memor ia 29.0-29.9, 29.0-29.9, 02:01:41 l adult adult [place] Active Problem 03/01/2022 Hemal Pinedo Erectile Erectile Problem Active 2022-03-01 Memoria dysfunctio dysfunctio 02:01:41 l n n Active [place] Problem 03/01/2022 Hemal Pinedo 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 02:01:41 l [place] artery of artery of both lower both lower extremitie extremitie s, with s, with unspecifie unspecifie d presence d presence of of clinical clinical manifestat manifestat ion ion Active Diagnosis 03/01/2022 Hemal Pinedo Leg cramps Leg Diagnosis Active 2020-02-22 Memoria cramps 02:06:20 l Active [place]ime Diagnosis 02/22/2020 Hemal Pinedo Hepatitis Diagnosis Active 2018-02-28 Memoria C Hepatitis 02:05:51 l Screening C Jaime 1947 to Screening 1967 (51 1947 to to 71) 1967 (51 to 71) Active Diagnosis 02/28/2018 Hemal Pinedo Encounter Encounter Diagnosis Active 2021-07-18 Memoria for for 02:05:14 l observatio observatio He anette n for n for suspected suspected exposure exposure to other to other biological biological agents agents ruled out ruled out Active Diagnosis 07/18/2021 Hemal Pinedo Gastroente Gastroent Diagnosis Active 2019-05-01 Memoria ritis eritis 02:02:09 l Active [place] Diagnosis 05/01/2019 Hemal Pinedo Nausea & Nausea & Diagnosis Active 2019-05-01 Memoria vomiting vomiting 02:02:09 l Active [place] Diagnosis 05/01/2019 [facility] Diagnosis Active 2019-05-01 Memoria discharge discharge 02:02:09 l follow-up follow-up Herm larry Active Diagnosis 05/01/2019 Hemal Pinedo Hypertensi Hypertens Problem Active 2020-12-07 Memoria on ion Active 02:02:21 l Problem [place] 12/07/2020 Hemal Pinedo Right Right Diagnosis Active 2021-07-18 Mem oria wrist pain wrist pain 02:05:14 l Active [place] Diagnosis 07/18/2021 Hemal Pinedo Pharyngiti Pharyngit Diagnosis Active 2021-07-18 Memoria s is Active 02:05:14 l Diagnosis Jaime 07/18/2021 Hemal Pinedo Exposure Exposure Diagnosis Active 2021-07-18 Memoria to to 02:05:14 l COVID-19 COVID-19 Awais n virus virus Active Diagnosis 07/18/2021 Hemal Pinedo Iron Iron Problem Active 2016-05-02 Memor ia deficiency deficiency 02:02:54 l anemia anemia [place] Active Problem 05/02/2016 Hemal Pinedo BMI BMI Problem Active 2016-01-03 Memor ia 28.0-28.9, 28.0-28.9, 02:13:08 l adult adult [place] Active Problem 01/03/2016 Hemal Pinedo Hyperchole Problem Active 2016-01-03 M emoria sterolemia Hyperchole 02:13:08 l sterolemia Awais n Active Problem 01/03/2016 Hemal Pinedo Nephritis Nephritis Problem Active 2015-05-27 Memoria and and 02:00:44 l nephropath nephropath He rmann y, not y, not specified specified as acute as acute or or chronic, chronic, with other with other specified specified pathologic pathologic al lesion al lesion in kidney, in kidney, in in diseases diseases classified classified elsewhere elsewhere Active Problem 05/27/2015 Hemal Musshakan Diabetes Diabetes Problem Active 2015-05-27 Memoria mellitus mellitus 02:00:44 l with renal with renal He rmann complicati complicati ons ons Active Problem 05/27/2015 Hemalwally Pinedo Vitamin D Vitamin D Problem Active 2016-01-03 Memoria Deficiency Deficiency 02:13:08 l Active [place] Problem 01/03/2016 Hemalwally Pinedo Benign Benign Problem Active 2015-05-27 Luther matias hypertensi hypertensi 02:00:44 l ve heart ve heart Awais solorio disease disease without without heart heart failure failure Active Problem 05/27/2015 Hemal Pinedo 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 Awais n Active Diagnosis 08/25/2021 Hemal Pinedo Chronic Chronic Problem Active 2016-01-03 M eduarripamela kidney kidney 02:13:08 l disease, disease, Awais n stage 2, stage 2, mildly mildly decreased decreased GFR GFR Active Problem 01/03/2016 Hemal Pinedo Hyperchole Hyperchol Problem Active 2016-07-01 Memoria sterolemia esterolemi 02:00:07 l a Active [place] Problem 07/01/2016 Hemal Pinedo Antibody Antibody Diagnosis Active 2016-07-01 Memoria response response 02:00:07 l examinatio examinatio He rmlarry n n Active Diagnosis 07/01/2016 Hemal Pinedo Cough Cough Diagnosis Active 2016-07-01 Mem oria Active 02:00:07 l Diagnosis [place] 07/01/2016 Hemal Pinedo URI (upper URI Diagnosis Active 2016-07-01 Memoria respirator (upper 02:00:07 l y respirator Awais n infection) y infection) Active Diagnosis 07/01/2016 Hemal Pinedo Encounter Encounter Diagnosis Active 2016-09-20 Memoria for for 03:22:08 l immunizati immunizati He rmann on on Active Diagnosis 09/20/2016 Hemal Mussaji Need for Need for Diagnosis Active 2020-06-20 Memoria prophylact prophylact 02:05:25 l ic ic [place] vaccinatio vaccinatio n and n and inoculatio inoculatio n against n against influenza influenza Active Diagnosis 06/20/2020 Hemal Mussaji Allergies, Adverse Reactions, Alerts Allergy Allergy Status Severity Reaction(s) Onset Inactive Treating Comm ents Source Name Type Date Date Clinician N.KAnuragAIzzy NSelenaAIzzy Active Info Not Luther matias Available 6-02 l 00:00: Jaime 00 Social History Social Habit Start Date Stop [...] tablet Memoria HCl 6-17 Mussaji l 02:01: Jaime 39 Ondansetron Yes Hemal 1 tablet Memoria 6-17 Mussaji on the l 02:01: tongue and [place] 41 allow to dissolve as needed Vitamin D3 Yes Hemal TAKE 1 Me moria 6-17 Mussaji CAPSULE BY l 02:01: MOUTH ONCE [place] 41 A WEEK FOR 12 WEEKS Viagra Yes Hemal 1 tablet Luther matias 6-17 Mussaji as needed l 02:01: [place] 41 Tamsulosin Yes Hemal TAKE 1 Me moria HCl 6-17 Mussaji CAPSULE 30 l 02:01: MINUTES [place] 41 AFTER THE SAME MEAL EACH DAY ONCE A DAY ORALLY 90 DAYS Gabapentin Yes Hemal TAKE 1 Me moria 6-17 Mussaji CAPSULE BY l 02:01: MOUTH 3 [place] 41 TIMES DAILY MetFORMIN Yes Hemal TAKE 1 Mem oria HCl ER 6-17 Mussaji TABLET BY l 02:01: MOUTH [place] 41 DAILY WITH MEALS Olmesartan- Yes Hemal TAKE 1 M emoria Amlodipine- 6-17 Mussaji TABLET l HCTZ 02:01: ONCE A DAY [place] 41 ORALLY Folic Acid 0 Yes Hemal [...] tablet Memoria HCl 6-17 Mussaji l 02:01: [place] 41 Ondansetron Yes Hemal 1 tablet Memoria 6-17 Mussaji on the l 02:01: tongue and Jaime 41 allow to dissolve as needed Vitamin D3 0 Yes Hemal TAKE 1 Me moria 6-17 Mussaji CAPSULE BY l 02:01: MOUTH ONCE [place] 41 A WEEK FOR 12 WEEKS Viagra Yes Hemal 1 tablet Luther matias 6-17 Mussaji as needed l 02:01: Jaime 41 Tamsulosin Yes Hemal TAKE 1 Me moria HCl 6-17 Mussaji CAPSULE 30 l 02:01: MINUTES Jaime 39 AFTER THE SAME MEAL EACH DAY ONCE A DAY ORALLY 90 DAYS Gabapentin 0 Yes Hemal TAKE 1 Me moria 6-17 Mussaji CAPSULE BY l 02:01: MOUTH 3 Jaime 41 TIMES DAILY MetFORMIN 0 Yes Hemal TAKE 1 Mem oria HCl ER 6-17 Mussaji TABLET BY l 02:01: MOUTH [place]ime 41 DAILY WITH MEALS Olmesartan- 0 Yes Hemal TAKE 1 M emoria Amlodipine- 6-17 Mussaji TABLET l HCTZ 02:01: ONCE A DAY [place] 41 ORALLY Folic Acid 0 Yes Hemal TAKE 1 Me moria 6-17 Mussaji TABLET BY l 02:01: MOUTH Jaime 41 EVERY DAY Furosemide 0 Yes Hemal TAKE 1 Me moria 6-17 Mussaji TABLET l 02:01: NEEDED [place] 41 ONCE A DAY ORALLY 90 DAYS D3-50 0 Yes Hemal take 1 Memoria 6-17 Mussaji capsule by l 02:01: mouth once [place] 41 a week for 12 weeks Ranitidine 0 Yes Hemal 1 tablet Memoria HCl 6-17 Mussaji l 02:01: [place] 41 Ondansetron 0 Yes Hemal 1 tablet Memoria 6-17 Mussaji on the l 02:01: tongue and Jaime 41 allow to dissolve as needed Vitamin D3 0 Yes Hemal TAKE 1 Me moria 6-17 Mussaji CAPSULE BY l 02:01: MOUTH ONCE Jaime 41 A WEEK FOR 12 WEEKS Viagra 0 Yes Hemal 1 tablet Luther matias 6-17 Mussaji as needed l 02:01: Jaime 41 Tamsulosin 0 Yes Hemal TAKE 1 Me moria HCl 6-17 Mussaji CAPSULE 30 l 02:01: MINUTES Jaime 39 AFTER THE SAME MEAL EACH DAY ONCE A DAY ORALLY 90 DAYS Gabapentin 0 Yes Hemal TAKE 1 Me moria 6-17 Mussaji CAPSULE BY l 02:01: MOUTH 3 Jaime 41 TIMES DAILY MetFORMIN 0 Yes Hemal TAKE 1 Mem oria HCl ER 6-17 Mussaji TABLET BY l 02:01: MOUTH [place] 41 DAILY WITH MEALS Olmesartan- 0 Yes Hemal TAKE 1 M emoria Amlodipine- 6-17 Mussaji TABLET l HCTZ 02:01: ONCE A DAY [place] 41 ORALLY Folic Acid 0 Yes Hemal TAKE 1 Me moria 6-17 Mussaji TABLET BY l 02:01: MOUTH [place] 41 EVERY DAY Furosemide 2021-0 Yes Hemal TAKE 1 Me moria 6-17 Mussaji TABLET l 02:01: NEEDED [place] 41 ONCE A DAY ORALLY 90 DAYS Folic Acid 2021-0 Yes Hemal take 1 Me moria 3-12 Mussaji tablet by l 03:02: mouth Jaime 13 every day Atorvastati 0 Yes Hemal 1 tablet Memoria n Calcium 3-12 Mussaji l 03:02: Jaime 13 Furosemide 2021-0 Yes Hemal 1 tablet Memoria 3-12 Mussaji as needed l 03:02: [place] 13 Folic Acid 2021-0 Yes Hemal take [...] 3-12 Mussaji tablet by l 03:02: mouth [place] 13 every day Atorvastati 2021-0 Yes Hemal 1 tablet Memoria n Calcium 3-12 Mussaji l 03:02: Jaime 13 Furosemide 0 Yes Hemal 1 tablet Memoria 3-12 Mussaji as needed l 03:02: Jaime 13 MetFORMIN 2020-09 Yes Hemal take 1 Mem oria HCl ER 2-11 Mussaji tablet by l 03:04: mouth [place] 33 daily with meals Livalo 2020-09 Yes Hemal 1/2 tablet Me moria 2-11 Mussaji l 03:04: Jaime 33 Olmesartan- 2020- Yes Hemal 1 tablet Memoria Amlodipine- 2-11 Mussaji l HCTZ 03:04: Jaime 33 MetFORMIN 2020-09 Yes Hemal take 1 Mem oria HCl ER 2-11 Mussaji tablet by l 03:04: mouth [place] 33 daily with meals Livalo 2020-09 Yes Hemal 1/2 tablet Me moria 2-11 Mussaji l 03:04: Jaime 33 Olmesartan- 2020- Yes Hemal 1 tablet Memoria Amlodipine- 2-11 Mussaji l HCTZ 03:04: Jaime 33 MetFORMIN 2020-09 Yes Hemal take 1 Mem oria HCl ER 2-11 Mussaji tablet by l 03:04: mouth [place] 33 daily with meals Livalo 2020- Yes Hemal 1/2 tablet Me moria 2-11 Mussaji l 03:04: Jaime 33 Olmesartan- 2020- Yes Hemal 1 tablet Memoria Amlodipine- 2-11 Mussaji l HCTZ 03:04: Jaime 33 Gabapentin 2020-09 Yes Hemal 1 capsule Memoria 1-03 Mussaji l 02:05: 14 Livalo 2020- Yes Hemal 1/2 tablet Me moria 1-03 Mussaji l 02:05: 14 Gabapentin 2020-09 Yes Hemal 1 capsule Memoria 1-03 Mussaji l 02:05: 14 Livalo 2020-09 Yes Hemal 1/2 tablet Me moria 1-03 Mussaji l 02:05: 14 Gabapentin 2020-09 Yes Hemal 1 capsule Memoria 1-03 Mussaji l 02:05: 14 Livalo 2020-09 Yes Hemal 1/2 tablet Me moria 1-03 Mussaji l 02:05: 14 Amlodipine- 2020-0 Yes Hemal 1 tablet Memoria Valsartan-H 8-14 Mussaji l CTZ 02:00: [place] 28 Tamsulosin 2020-0 Yes Hemal 1 capsule Memoria HCl 8-14 Mussaji 30 minutes l 02:00: after the same meal each day Amlodipine- 2020-0 Yes Hemal 1 tablet Memoria Valsartan-H 8-14 Mussaji l CTZ 02:00: Tamsulosin 2020-0 Yes Hemal 1 capsule Memoria HCl 8-14 Mussaji 30 minutes l 02:00: after the same meal each day Amlodipine- 2020-0 Yes Hemal 1 tablet Memoria Valsartan-H 8-14 Mussaji l CTZ 02:00: Jaime 28 Tamsulosin 2020-0 Yes Hemal 1 capsule Memoria HCl 8-14 Mussaji 30 minutes l 02:00: after the same meal each day MetFORMIN 0 Yes Hemal take 1 Mem oria HCl ER 3-25 Mussaji tablet by l 02:02: mouth [place] 21 daily with meals MetFORMIN 0 Yes Hemal take 1 Mem oria HCl ER 3-25 Mussaji tablet by l 02:02: mouth [place] 21 daily with meals MetFORMIN 0 Yes Hemal take 1 Mem oria HCl ER 3-25 Mussaji tablet by l 02:02: mouth [place] 21 daily with meals Gabapentin 2019- Yes Hemal 1 capsule Memoria 0-06 Mussaji l 02:05: Livalo 2019- Yes Hemal 1 tablet Luther matias 0-06 Mussaji l 02:05: Gabapentin 2019-09 Yes Hemal 1 capsule Memoria 0-06 Mussaji l 02:05: Livalo 2019-09 Yes Hemal 1 tablet Luther matias 0-06 Mussaji l 02:05: Gabapentin 2019-09 Yes Hemal 1 capsule Memoria 0-06 Mussaji l 02:05: Livalo 2019-09 Yes Hemal 1 tablet Luther matias 0-06 Mussaji l 02:05: Folic Acid 2020-0 Yes Hemal take 1 Me moria 6-29 Mussaji tablet by l 02:03: mouth Jaime 40 every day Folic Acid 2020-0 Yes Hemal take 1 Me moria 6-29 Mussaji tablet by l 02:03: mouth [place] 40 every day Folic Acid 2020-0 Yes Hemal take 1 Me moria 6-29 Mussaji tablet by l 02:03: mouth Jaime 40 every day Amlodipine- 2018-09 Yes Hemal [...] n Calcium 0-15 Mussaji l 02:01: Jaime 42 Pham 2018-09 Yes Hemal 1 tablet Memor ia Aspirin EC 0-15 Mussaji l Low Dose 02:01: Jaime Atorvastati 2019- Yes Hemal 1 tablet Memoria n Calcium 0-15 Mussaji l 02:01: Jaime Pham 2018-09 Yes Hemal 1 tablet Memor ia Aspirin EC 0-15 Mussaji l Low Dose 02:01: Jaime Atorvastati 2018-09 Yes Hemal 1 tablet Memoria n Calcium 0-15 Mussaji l 02:01: Jaime Pham 2018-09 Yes Hemal 1 tablet Memor ia Aspirin [...] tablet Memoria HCl 8-17 Mussaji l 02:02: Jaime D3-50 2019-0 Yes Hemal take 1 Memoria 8-17 Mussaji capsule by l 02:02: mouth once [place] 09 a week for 12 weeks MetFORMIN 2019-0 Yes Hemal take 1 Mem oria HCl ER 8-17 Mussaji tablet by l 02:02: mouth daily with meals Folic Acid 2019-0 Yes Hemal take 1 Me moria 8-17 Mussaji tablet by l 02:02: mouth every day Amlodipine- 2019-0 Yes Hemal 1 tablet Memoria Valsartan-H 8-17 Mussaji l CTZ 02:02: Jaime 09 Atorvastati 2019-0 Yes Hemal 1 tablet Memoria n Calcium 8-17 Mussaji l 02:02: [place] 09 Ranitidine 2019-0 Yes Hemal 1 tablet Memoria HCl 8-17 Mussaji l 02:02: D3-50 2019-0 Yes Hemal take 1 Memoria 8-17 Mussaji [...] Memoria HCl 8-17 Mussaji l 02:02: D350 0 Yes Hemal take 1 Memoria 8-17 Mussaji capsule by l 02:02: mouth once a week for 12 weeks MetFORMIN 2018-0 Yes Hemal TAKE 1 Mem oria HCl ER 1-03 Mussaji TABLET BY l 03:04: MOUTH Jaime 24 DAILY WITH MEALS MetFORMIN 2018-0 Yes Hemal TAKE 1 Mem oria HCl ER 1-03 Mussaji TABLET BY l 03:04: MOUTH [place]ime 24 DAILY WITH MEALS MetFORMIN 2018-0 Yes Hemal TAKE 1 Mem oria HCl ER 1-03 Mussaji TABLET BY l 03:04: MOUTH [place] 24 DAILY WITH MEALS Atorvastati 2017-0 Yes Hemal 1 tablet Memoria n Calcium 9-11 Mussaji l 02:03: 15 Folic Acid 2017-0 Yes Hemal 1 tablet Memoria 9-11 Mussaji l 02:03: 15 Lipitor 2017-0 Yes Hemal TAKE 1 Memor ia 9-11 Mussaji TABLET BY l 02:03: MOUTH [place] 15 DAILY Atorvastati 2017-0 Yes Hemal 1 tablet Memoria n Calcium 9-11 Mussaji l 02:03: 15 Folic Acid 2017-0 Yes Hemal 1 tablet Memoria 9-11 Mussaji l 02:03: [place] Lipitor 2017-0 Yes Hemal TAKE 1 Memor ia 9-11 Mussaji TABLET BY l 02:03: MOUTH 15 DAILY Atorvastati 2017-0 Yes Hemal 1 tablet Memoria n Calcium 9-11 Mussaji l 02:03: Folic Acid 2017-0 Yes Hemal 1 tablet Memoria 9-11 Mussaji l 02:03: Jaime Lipitor 2017-0 Yes Hemal TAKE 1 Memor ia 9-11 Mussaji TABLET BY l 02:03: MOUTH 15 DAILY Vitamin D3 2016- Yes Hemal 1 capsule Memoria 8-07 Mussaji l 02:01: Vitamin D3 Yes Hemal 1 capsule Memoria 8-07 Mussaji l 02:01: Vitamin D3 Yes Hemal 1 capsule Memoria 8-07 Mussaji l 02:01: Jaime 19 Amlodipine 2015-09 Yes Hemal 1 capsule Memoria Besy-Benaze 0-17 Mussaji l pril HCl 02:00: Jaime Ferrous 2015-09 Yes Hemal 1 tablet Mem oria Sulfate 0-17 Mussaji l 02:00: Jaime 07 Tessalon 2015-09 Yes Hemal 1 capsule M emoria Perles 0-17 Mussaji as needed l 02:00: Jaime 07 Hydrochloro 2015-09 Yes Hemal 1 capsule Memoria thiazide 0-17 Mussaji l 02:00: [place] 07 Amlodipine 2015-09 Yes Hemal 1 capsule Memoria Besy-Benaze 0-17 Mussaji l pril HCl 02:00: Jaime Ferrous 2015-09 Yes Hemal 1 tablet Mem oria Sulfate 0-17 Mussaji l 02:00: Jaime 07 Tessalon 2015-09 Yes Hemal 1 capsule M emoria Perles 0-17 Mussaji as needed l 02:00: [place] 07 Hydrochloro 2015-09 Yes Hemal 1 capsule Memoria thiazide 0-17 Mussaji l 02:00: Jaime 07 Amlodipine 2015-09 Yes Hemal 1 capsule Memoria Besy-Benaze 0-17 Mussaji l pril HCl 02:00: Ferrous 2015- Yes Hemal 1 tablet Mem oria Sulfate 0-17 Mussaji l 02:00: Tessalon 2015- Yes Hemal 1 capsule M hector Perles 0-17 Mussaji as needed l 02:00: Hydrochloro 2015-1 Yes Hemal 1 capsule Memoria thiazide 0-17 [...] 5-24 Mussaji l CTZ 00:00: Immunizations Ordered Filled Immunization Date Status Comments [facility] e Immunization Name Name INFLUENZA FLUZONE 2020-05-30 Completed Memoria l HIGH DOSE >65 ONLY 00:00:00 Awais solorio COMMERCIAL & MEDICARE INFLUENZA FLUZONE 2020-05-30 Completed Memoria l HIGH DOSE >65 ONLY 00:00:00 Awais solorio COMMERCIAL & MEDICARE INFLUENZA- 2019-08-03 Completed Memorial FLUCELVAX >4YRS 00:00:00 Jaime (COMMERCIAL) INFLUENZA- 2019-08-03 Completed Memorial FLUCELVAX >4YRS 00:00:00 Jaime (COMMERCIAL) INFLUENZA FLU ZONE 2018-11-03 Completed Memori al [...] 00:00:00 Awais n COMMERCIAL & MEDICARE INFLUENZA > 3yrs 2017-11-[address] [facility] MEDICARE ONLY 00:00:00 [place] INFLUENZA > 3yrs 2017-11-[address] [facility] MEDICARE ONLY 00:00:00 Jaime INFLUENZA HIGH DOSE 2016-08-06 Completed Memor ial >65 ONLY 00:00:00 Jaime INFLUENZA HIGH DOSE 2016-08-06 Completed Memor ial >65 ONLY 00:00:00 Jaime INFLUENZA FLUZONE Unknown Completed Memoria l HIGH DOSE >65 ONLY Awais n COMMERCIAL & MEDICARE INFLUENZA- Unknown Completed [facility] FLUCELVAX >4YRS Jaime (COMMERCIAL) INFLUENZA FLUZONE Unknown Completed Memoria l HIGH DOSE >65 ONLY Awais n [employer]ERCIAL [employer] MEDICARE INFLUENZA FLU ZONE Unknown Completed Memori al HIGH DOSE >65 ONLY Awais n COMMERCIAL & MEDICARE INFLUENZA > 3yrs Unknown Completed [facility] MEDICARE ONLY Jaime INFLUENZA HIGH DOSE Unknown Completed Memor ial >65 ONLY [place] Vital Signs Vital Name Observation Time Observation Value Comments Source Heart Rate 2022-02-14 14:30:00 [facility] [place] Diastolic (mm Hg) 2022-02-14 14:30:00 Mem orial [place] Systolic (mm Hg) 2022-02-14 14:30:00 Luther rial Jaime Temperature Oral (F) 2022-02-14 14:30:00 96.9 F [facility] [place] Weight 2022-02-14 14:30:[address] [facility] Jaime Height 2022-02-14 14:30:[address] [facility] [place] Heart Rate 2021-11-15 15:15:00 [facility] Ja[place] Diastolic (mm Hg) 2021-11-15 15:15:00 Mem orial [place] Systolic (mm Hg) 2021-11-15 15:15:00 Luther rial [place] Temperature Oral (F) 2021-11-15 15:15:00 97.5 F [facility] Ja[place] Weight 2021-11-15 15:15:[address] [facility] [place] Height 2021-11-15 15:15:[address] [facility] Jaime Heart Rate 2021-08-16 16:00:00 [facility] Ja[place] Diastolic (mm Hg) 2021-08-16 16:00:00 Mem orial [place] Systolic (mm Hg) 2021-08-16 16:00:00 Luther rial Jaime Temperature Oral (F) 2021-08-16 16:00:00 96.3 F [facility] [place] Weight 2021-08-16 16:00:00 [facility] Ja[place] Height 2021-08-16 16:00:00 [facility] [place] Heart Rate 2021-05-15 14:45:00 [facility] [place] Diastolic (mm Hg) 2021-05-15 14:45:00 Mem orial [place] Systolic (mm Hg) 2021-05-15 14:45:00 Luther rial [place] Temperature Oral (F) 2021-05-15 14:45:00 99.0 F [facility] Ja[place] Weight 2021-05-15 14:45:00 [facility] [place] Height 2021-05-15 14:45:00 [facility] Ja[place] Heart Rate 2021-02-13 14:00:00 [facility] [place] Diastolic (mm Hg) 2021-02-13 14:00:00 Mem orial Ja[place] Systolic (mm Hg) 2021-02-13 14:00:00 [facility] [place] Temperature Oral (F) 2021-02-13 14:00:00 97.6 F [facility] Weight 2021-02-13 14:00:00 [facility] Height 2021-02-13 14:00:00 [facility] [place] Heart Rate 2020-11-14 14:00:00 [facility] [place] Diastolic (mm Hg) 2020-11-14 14:00:00 [facility] [place] Systolic (mm Hg) 2020-11-14 14:00:00 [facility] [place] Temperature Oral (F) 2020-11-14 14:00:00 97.7 F [facility] Weight 2020-11-14 14:00:00 [facility] [place] Height 2020-11-14 14:00:00 [facility] [place] Heart Rate 2020-08-01 15:30:00 [facility] Diastolic (mm Hg) 2020-08-01 15:30:00 [facility] Systolic (mm Hg) 2020-08-01 15:30:00 [facility] [place] Temperature Oral (F) 2020-08-01 15:30:00 98.2 F [facility] Weight 2020-08-01 15:30:00 [facility] [place] Height 2020-08-01 15:30:00 [facility] Heart Rate 2020-05-30 15:00:00 [facility] Diastolic (mm Hg) 2020-05-30 15:00:00 [facility] [place] Systolic (mm Hg) 2020-05-30 15:00:00 [facility] [place] Temperature Oral (F) 2020-05-30 15:00:00 97.0 F [facility] Weight 2020-05-30 15:00:00 [facility] Height 2020-05-30 15:00:00 [facility] [place] Heart Rate 2020-05-02 15:15:00 [facility] [place] Diastolic (mm Hg) 2020-05-02 15:15:00 [facility] [place] Systolic (mm Hg) 2020-05-02 15:15:00 [facility] Temperature Oral (F) 2020-05-02 15:15:00 97.0 F [facility] [place] Weight 2020-05-02 15:15:00 [facility] [place] Height 2020-05-02 15:15:00 [facility] Heart Rate 2020-02-18 16:15:00 [facility] Diastolic (mm Hg) 2020-02-18 16:15:00 [facility] [place] Systolic (mm Hg) 2020-02-18 16:15:00 [facility] Temperature Oral (F) 2020-02-18 16:15:00 97.7 F [facility] Weight 2020-02-18 16:15:00 [facility] Height 2020-02-18 16:15:00 [facility] Heart Rate 2020-02-01 19:45:00 [facility] Diastolic (mm Hg) 2020-02-01 19:45:00 [facility] [place] Systolic (mm Hg) 2020-02-01 19:45:00 [facility] Temperature Oral (F) 2020-02-01 19:45:00 97.9 F [facility] [place] Weight 2020-02-01 19:45:00 [facility] Height 2020-02-01 19:45:00 [facility] Heart Rate 2019-08-03 17:30:00 [facility] [place] Diastolic (mm Hg) 2019-08-03 17:30:00 [facility] Systolic (mm Hg) 2019-08-03 17:30:00 [facility] [place] Temperature Oral (F) 2019-08-03 17:30:00 97.5 F [facility] Weight 2019-08-03 17:30:00 [facility] Height 2019-08-03 17:30:00 [facility] Heart Rate 2019-05-04 19:45:00 [facility] [place] Diastolic (mm Hg) 2019-05-04 19:45:00 [facility] Systolic (mm Hg) 2019-05-04 19:45:00 [facility] Temperature Oral (F) 2019-05-04 19:45:00 98.0 F [facility] [place] Weight 2019-05-04 19:45:00 [facility] Height 2019-05-04 19:45:00 [facility] [place] Heart Rate 2019-03-31 20:15:00 [facility] [place] Diastolic (mm Hg) 2019-03-31 20:15:00 [facility] [place] Systolic (mm Hg) 2019-03-31 20:15:00 [facility] Temperature Oral (F) 2019-03-31 20:15:00 99.0 F [facility] [place] Weight 2019-03-31 20:15:00 [facility] [place] Height 2019-03-31 20:15:00 [facility] Heart Rate 2019-02-02 19:45:00 [facility] Diastolic (mm Hg) 2019-02-02 19:45:00 [facility] [place] Systolic (mm Hg) 2019-02-02 19:45:00 [facility] Temperature Oral (F) 2019-02-02 19:45:00 98.2 F [facility] Weight 2019-02-02 19:45:00 [facility] Height 2019-02-02 19:45:00 [facility] Heart Rate 2018-11-03 20:00:00 [facility] Diastolic (mm Hg) 2018-11-03 20:00:00 [facility] Systolic (mm Hg) 2018-11-03 20:00:00 [facility] Temperature Oral (F) 2018-11-03 20:00:00 97.0 F [facility] Weight 2018-11-03 20:00:00 [facility] [place] Height 2018-11-03 20:00:00 [facility] Heart Rate 2018-11-03 19:00:00 [facility] [place] Diastolic (mm Hg) 2018-11-03 19:00:00 [facility] [place] Systolic (mm Hg) 2018-11-03 19:00:00 [facility] Temperature Oral (F) 2018-11-03 19:00:00 97.0 F [facility] [place] Weight 2018-11-03 19:00:00 [facility] [place] Height 2018-11-03 19:00:00 [facility] Heart Rate 2018-08-04 20:00:00 [facility] Diastolic (mm Hg) 2018-08-04 20:00:00 [facility] [place] Systolic (mm Hg) 2018-08-04 20:00:00 [facility] [place] Temperature Oral (F) 2018-08-04 20:00:00 97.4 F [facility] Weight 2018-08-04 20:00:00 [facility] Height 2018-08-04 20:00:00 [facility] [place] Heart Rate 2018-05-05 20:15:00 [facility] [place] Diastolic (mm Hg) 2018-05-05 20:15:00 [facility] [place] Systolic (mm Hg) 2018-05-05 20:15:00 [facility] [place] Temperature Oral (F) 2018-05-05 20:15:00 98.3 F [facility] Weight 2018-05-05 20:15:00 [facility] Height 2018-05-05 20:15:00 [facility] [place] Heart Rate 2018-05-05 19:15:00 [facility] Diastolic (mm Hg) 2018-05-05 19:15:00 [facility] [place] Systolic (mm Hg) 2018-05-05 19:15:00 [facility] Temperature Oral (F) 2018-05-05 19:15:00 98.3 F [facility] [place] Weight 2018-05-05 19:15:00 [facility] [place] Height 2018-05-05 19:15:00 [facility] Heart Rate 2018-02-03 19:00:00 [facility] [place] Diastolic (mm Hg) 2018-02-03 19:00:00 [facility] Systolic (mm Hg) 2018-02-03 19:00:00 [facility] Temperature Oral (F) 2018-02-03 19:00:00 97.0 F [facility] [place] Weight 2018-02-03 19:00:00 [facility] Height 2018-02-03 19:00:00 [facility] Heart Rate 2017-11-04 20:00:00 [facility] [place] Diastolic (mm Hg) 2017-11-04 20:00:00 [facility] [place] Systolic (mm Hg) 2017-11-04 20:00:00 [facility] Temperature Oral (F) 2017-11-04 20:00:00 98.3 F [facility] Weight 2017-11-04 20:00:00 [facility] [place] Height 2017-11-04 20:00:00 [facility] [place] Heart Rate 2017-11-04 19:00:00 [facility] [place] Diastolic (mm Hg) 2017-11-04 19:00:00 [facility] Systolic (mm Hg) 2017-11-04 19:00:00 [facility] [place] Temperature Oral (F) 2017-11-04 19:00:00 98.3 F [facility] [place] Weight 2017-11-04 19:00:00 [facility] Height 2017-11-04 19:00:00 [facility] Heart Rate 2017-08-05 20:15:00 [facility] Diastolic (mm Hg) 2017-08-05 20:15:00 [facility] Systolic (mm Hg) 2017-08-05 20:15:00 [facility] [place] Temperature Oral (F) 2017-08-05 20:15:00 96.5 F [facility] [place] Weight 2017-08-05 20:15:00 [facility] [place] Height 2017-08-05 20:15:00 [facility] Rate 2017-05-06 14:00:00 [facility] [place] Diastolic (mm Hg) 2017-05-06 14:00:00 [facility] Systolic (mm Hg) 2017-05-06 14:00:00 [facility] [place] Temperature Oral (F) 2017-05-06 14:00:00 97.8 F [facility] Weight 2017-05-06 14:00:00 [facility] [place] Height 2017-05-06 14:00:00 [facility] Heart Rate 2016-11-05 14:45:00 [facility] Diastolic (mm Hg) 2016-11-05 14:45:00 [facility] [place] Systolic (mm Hg) 2016-11-05 14:45:00 [facility] Temperature Oral (F) 2016-11-05 14:45:00 97.8 F [facility] Weight 2016-11-05 14:45:00 [facility] [place] Height 2016-11-05 14:45:00 [facility] Heart Rate 2016-08-06 15:45:00 [facility] Diastolic (mm Hg) 2016-08-06 15:45:00 [facility] Systolic (mm Hg) 2016-08-06 15:45:00 [facility] Temperature Oral (F) 2016-08-06 15:45:00 97.4 F [facility] [place] Weight 2016-08-06 15:45:00 [facility] Height 2016-08-06 15:45:00 [facility] [place] Heart Rate 2015-11-07 15:00:00 [facility] Diastolic (mm Hg) 2015-11-07 15:00:00 [facility] [place] Systolic (mm Hg) 2015-11-07 15:00:00 [facility] [place] Temperature Oral (F) 2015-11-07 15:00:00 97.6 F [facility] Weight 2015-11-07 15:00:00 [facility] Height 2015-11-07 15:00:00 [facility] [place] Procedures This patient has no known procedures. Encounters Start End Encounter Admission Attending Care Care Encounter Source Date/Time Date/Time Type Type Clinicians Facility Department ID 2021-12-14 Outpatient [facility] [id number] [place] 14:47:18 [id number] [facility] 2021-12-12 Outpatient [facility] [id number] [place] 13:16:40 [id number] [facility] 2022-02-18 2022-02-18 [facility] [id number] [facility] 14:15:00 14:15:00 [facility] 2022-02-14 2022-02-14 Out[facility] [id number] [facility] 09:30:00 09:30:00 [facility] 2021-11-16 2021-11-16 [facility] [id number] [facility] 16:22:00 16:22:00 [facility] 2021-11-15 2021-11-15 Out[facility] [id number] [facility] 09:15:00 09:15:00 [facility] gomez [facility] 2021-08-17 2021-08-17 [facility] [id number] [facility] 16:36:[place] 16:36:[place] [facility] 2021-08-16 2021-08-16 [facility] [id number] [facility] 10:00:00 10:00:00 [place] [facility] 2021-05-17 2021-05-17 [facility] [id number] [facility] 12:11:00 12:11:00 [facility] gomez [facility] 2021-05-15 2021-05-15 Out[facility] [id number] [facility] 09:45:00 09:45:00 [place] [facility] 2021-02-16 2021-02-16 [facility] [id number] [facility] 14:16:00 14:16:00 [place] [facility] 2021-02-13 2021-02-13 Out[facility] [id number] [facility] 09:00:00 09:00:00 [place] [facility] 2020-11-27 2020-11-27 [facility] [id number] [facility] 14:12:00 14:12:00 [place] [facility] 2020-11-14 2020-11-14 Out[facility] [id number] [facility] 09:00:00 09:00:00 [place] [facility] 2020-08-04 2020-08-04 [facility] [id number] [facility] 13:32:00 13:32:00 [place] [facility] 2020-08-01 2020-08-01 [facility] [id number] [facility] 09:30:00 09:30:00 [facility] 2020-05-30 2020-05-30 [facility] [id number] [facility] 10:00:00 10:00:00 [place] [facility]-05 2020-05-05 [facility] [id number] [facility] 14:56:00 14:56:00 [facility] 2020-05-02 2020-05-02 Outpatient [facility] [id number] [facility] 10:15:00 10:15:00 [facility]il gomez [facility] 2020-02-22 2020-02-22 Out[facility] [id number] [facility] 15:27:00 15:27:00 [facility] gomez [facility] 2020-02-18 2020-02-18 Out[facility] [id number] [facility] 11:15:00 11:15:00 [facility] gomez [facility] 2020-02-04 2020-02-04 [facility] [id number] [facility] 16:01:00 16:01:00 [facility] gomez [facility] 2020-02-01 2020-02-01 Out[facility] [id number] [facility] 14:45:00 14:45:00 [facility] gomez [facility] 2019-11-05 2019-11-05 [facility] [id number] [facility] 14:40:00 14:40:00 [facility] gomez [facility] 2019-08-06 2019-08-06 Out[facility] [id number] [facility] 15:56:00 15:56:00 [facility] gomez [facility] 2019-08-05 2019-08-05 Out[facility] [id number] [facility] 16:24:00 16:24:00 [facility] gomez [facility] 2019-08-03 2019-08-03 [facility] [id number] [facility] 11:30:00 11:30:00 [facility] gomez [facility] 2019-05-06 2019-05-06 Out[facility] [id number] [facility] 12:32:00 12:32:00 [facility] gomez [facility] 2019-05-04 2019-05-04 Out[facility] [id number] [facility] 14:45:00 14:45:00 [facility] gomez [facility] 2019-03-31 2019-03-31 Out[facility] [id number] [facility] 15:15:00 15:15:00 [facility] gomez [facility] 2019-02-03 2019-02-03 Out[facility] [id number] [facility] 14:12:00 14:12:00 Cyril gomez [facility] 2019-02-02 2019-02-02 Outpatient [facility] [id number] [facility] 14:45:00 14:45:00 Cyril gomez [facility] 2018-11-05 2018-11-05 Outpatient [facility] [id number] [facility] 15:48:00 15:48:00 Cyril gomez [facility] 2018-11-03 2018-11-03 Outpatient [facility] [id number] [facility] 14:00:00 14:00:00 C[facility]il gomez [facility] 2018-11-03 2018-11-03 Out[facility] [id number] [facility] 14:00:00 14:00:00 [facility] gomez [facility] 2018-08-10 2018-08-10 Out[facility] [id number] [facility] 14:52:00 14:52:00 [place] C[facility] g[facility] 2018-08-04 2018-08-04 Out[facility] [id number] [facility] 14:00:00 14:00:00 [facility] gomez [facility] 2018-05-05 2018-05-05 Out[facility] [id number] [facility] 14:15:00 14:15:00 [facility] gomez [facility] 2018-05-05 2018-05-05 Out[facility] [id number] [facility] 14:15:00 14:15:00 C[facility] gomez [facility] 2018-02-04 2018-02-04 Outpatient [facility] [id number] [facility] 16:32:00 16:32:00 [facility] 2018-02-03 2018-02-03 Outpatient [facility] [id number] [facility] 14:00:00 14:00:00 [facility]il gomez [facility] 2017-11-05 2017-11-05 [facility] [id number] [facility] 14:34:00 14:34:00 [place] C[facility] g[facility] 2017-11-04 2017-11-04 [facility] [id number] [facility] 14:00:00 14:00:00 [place] [facility] 2017-11-04 2017-11-04 Outpatient [facility] [id number] [facility] 14:00:00 14:00:00 [facility] 2017-08-11 2017-08-11 Out[facility] [id number] [facility] 14:05:00 14:05:00 [facility] 2017-08-05 2017-08-05 Out[facility] [id number] [facility] 14:15:00 14:15:00 [facility] 2017-05-08 2017-05-08 Out[facility] [id number] [facility] 13:33:00 13:33:00 [facility] 2017-05-06 2017-05-06 Out[facility] [id number] [facility] 09:00:00 09:00:00 [facility] 2017-02-05 2017-02-05 Outpatient [facility] [id number] [facility] 14:53:00 14:53:00 [facility] 2016-11-08 2016-11-08 Lab nullFlavo Hemal [id number] -[id number] [facility] 21:20:00 21:20:00 Results anthony Madrigalf-4dae-a l DO, PA [id number] [facility] 225d6f 2016-11-08 2016-11-08 Lab nullFlavo Hemal [id number] -9 [facility] 21:20:00 21:20:00 Results neri Madrigal-4dae-a patricia DO, PA [id number] [facility] nn 225d6f 2016-11-08 2016-11-08 Outpatient [facility] [id number] [facility] 15:20:00 15:20:00 Dat Daugherty l DO, PA DOSANTHOSH 2016-11-05 2016-11-05 Outpatient [facility] [id number] [facility] 09:45:00 09:45:00 [facility] 2016-08-09 2016-08-09 lab nullFlavo Hemal [id number] -7 [facility] 16:11:00 16:11:00 results mindy Daugherty [id number]-[id number] patricia DO PA [id number] [facility] nn a52e3f 2016-08-09 2016-08-09 lab nullFlavo Hemal [id number] -8 [facility] 16:11:00 16:11:00 results mindy Daugherty ba4-43dd-a l DO, PA [id number] [facility] 5daea7 2016-08-09 2016-08-09 lab nullFlavo Hemal [id number] -5 [facility] 16:11:00 16:11:00 results mindy Daugherty a64-0gv8-2 l DO, PA [id number] [facility] [id number] 2016-08-09 2016-08-09 lab nullFlavo Hemal [id number] -7 [facility] 16:11:00 16:11:00 results mindy Daugherty eda-4874-8 l DO, PA [id number] [facility] a52e3f 2016-08-09 2016-08-09 lab nullFlavo Hemal [id number] -8 [facility] 16:11:00 16:11:00 results mindy Daugherty ba4-43dd-a l DO, PA [id number] [facility] 5daea7 2016-08-09 2016-08-09 lab nullFlavo Hemal [id number] -5 [facility] 16:11:00 16:11:00 results luis Madrigal7-4ed5-9 l DO, PA [id number] [facility] 4j550t 2016-08-09 2016-08-09 Outpatient [facility] [id number] [facility] 10:11:00 10:11:00 Dat Daugherty l DO, PA SAN[facility]OS[facility] [place] 2016-08-06 2016-08-06 Diabetes nullFlavo Hemal [id number] a-3 [facility] 15:45:00 15:45:00 F/U,HTN mindy Daugherty 4b3-5go2-h l F/U,Lipids DOSANTHOSH [id number] Jhonny rmlarry F/U--Conf 28d42a 2016-08-06 2016-08-06 Diabetes nullFlavo Hemal [id number] 0-d [facility] 15:45:00 15:45:00 F/U,HTN r Dat, 243-4ad4-b l F/U,Lipids DO, PA cbd-cbd63a He rmann F/U--Conf [id number] 2016-08-06 2016-08-06 Diabetes nullFlavo Hemal [id number] a-3 [facility] 15:45:00 15:45:00 F/U,HTN r Dat, 4w4-4tc4-k l F/U,Lipids DO, PA [id number]-[id number] He rmann F/U--Conf 28d42a 2016-08-06 2016-08-06 Diabetes nullFlavo Hemal [id number] 0-d [facility] 15:45:00 15:45:00 F/U,HTN r Dat, 243-4ad4-b l F/U,Lipids DO, PA cbd-cbd63a He rmann F/U--Conf [id number] 2016-08-06 2016-08-06 Outpatient [facility] [id number] [facility] 09:45:00 09:45:00 Dat Daugherty, l DO, PA [facility] [place] 2016-05-09 2016-05-09 lab nullFlavo Hemal [id number] -9 [facility] 17:35:00 17:35:00 results mindy Daugherty 15f-4d1f-b l DO, SANTHOSH [id number] Francesca nn [id number] 6311-08-25 2016-05-09 lab nullFlavo Hemal [id number] -b [facility] 17:35:00 17:35:00 results mindy Daugherty 41b-4e07-b l DO, SANTHOSH 4da-05bdd9 Francesca nn 1d44fa 2016-05-09 2016-05-09 lab nullFlavo Hemal [id number] -f [facility] 17:35:00 17:35:00 results mindy Daugherty bd0-44b7-b l DOSANTHOSH ada-feed46 Francesca nn [id number] 2016-05-09 2016-05-09 lab nullFlavo Hemal [id number] -9 [facility] 17:35:00 17:35:00 results mindy Daugherty 15f-4d1f-b l DO, PA [id number] Francesca nn [id number] 2807-08-25 2016-05-09 lab nullFlavo Hemal [id number] -b [facility] 17:35:00 17:35:00 results mindy Daugherty 41b-4e07-b l DO, PA 4da-05bdd9 [facility] nn 1d44fa 2016-05-09 2016-05-09 lab nullFlavo Hemal [id number] -f [facility] 17:35:00 17:35:00 results mindy Daugherty bd0-44b7-b l DO, PA ada-feed46 [facility]ca nn [id number] 2016-05-09 2016-05-09 lab nullFlavo Hemal [id number] -f [facility] 16:35:00 16:35:00 results mindy Johnathanpamelastonedelmis j42-73yb-9 l DO, PA 2w6-gj930p [facility]ca nn 34f5a8 2016-05-09 2016-05-09 lab nullFlavo Hemal [id number] -3 [facility] 16:35:00 16:35:00 results mindy Daugherty 368-492a-b l DO, PA [id number]-tq3338 [facility] nn d27c6a 2016-05-09 2016-05-09 lab nullFlavo Hemal [id number] -f [facility] 16:35:00 16:35:00 results mindy Daugherty t03-54bc-9 l DO, PA [id number]-ym865y [facility] nn 34f5a8 2016-05-09 2016-05-09 lab nullFlavo Hemal [id number] -3 [facility] 16:35:00 16:35:00 results mindy Dat 368-492a-b l DO, PA [id number]-vz2669 Francesca nn d27c6a 2016-05-09 2016-05-09 Outpatient [facility] [id number] [facility] 11:35:00 11:35:00 Dat Daugherty, l DO, PA DO, SANTHOSH [place] 2016-05-01 2016-05-01 Refill nullFlavo Hemal [id number] -3 [facility] 14:33:00 14:33:00 r Dat, 3j8-5i9c-6 l DO, PA [id number] Francesca nn a24ea3 2016-05-01 2016-05-01 Refill nullFlavo Hemal [id number] -8 [facility] 14:33:00 14:33:00 r Dat, 71d-43ea-b l DO, PA 45d-2d79ed Francesca nn 18ce9c 2016-05-01 2016-05-01 Refill nullFlavo Hemal [id number] -d [facility] 14:33:00 14:33:00 r Dat, 88b-46bc-8 l DO, PA [id number] Francesca nn d2a5a1 2016-05-01 2016-05-01 Refill nullFlavo Hemal [id number] -d [facility] 14:33:00 14:33:00 r Dat 88b-46bc-8 l DO, PA [id number] Francesca nn d2a5a1 2016-05-01 2016-05-01 Refill nullFlavo Hemal [id number] -3 [facility] 14:33:00 14:33:00 r Dat, 8g8-0l7s-8 l DO, PA [id number] Francesca nn a24ea3 2016-05-01 2016-05-01 Refill nullFlavo Hemal [id number] -8 [facility] 14:33:00 14:33:00 mindy Daugherty 71d-43ea-b l DO, PA 45d-2d79ed [facility]ca nn 18ce9c 2016-05-01 2016-05-01 Refill nullFlavo Hemal [id number] -f [facility] 13:33:00 13:33:00 r Dat af7-4fcc-8 l DO, PA o49-ip9l5q Francesca nn ed4be5 2016-05-01 2016-05-01 Refill nullFlavo Hemal [id number] -2 [facility] 13:33:00 13:33:00 r Dat 59e-457d-8 l DO, PA 06a-f3e08a Francesca nn 0422b7 2016-05-01 2016-05-01 Refill nullFlavo Hemal [id number] -d [facility] 13:33:00 13:33:00 r Dat 31a-4c7e-a l DO, PA 971-b4b8da Francesca nn 1ba7e8 2016-05-01 2016-05-01 Refill nullFlavo Hemal [id number] -f [facility] 13:33:00 13:33:00 r Dat af7-4fcc-8 l DO, PA a95-ue9n5b Francesca nn ed4be5 2016-05-01 2016-05-01 Refill nullFlavo Hemal [id number] -2 [facility] 13:33:00 13:33:00 r Dat 59e-457d-8 l DO, PA 06a-f3e08a Francesca nn 0422b7 2016-05-01 2016-05-01 Refill nullFlavo Hemal 627st6x6 -d [facility] 13:33:00 13:33:00 r Dat 31a-4c7e-a l DO, PA 971-b4b8da Francesca nn 1ba7e8 2016-05-01 2016-05-01 Outpatient [facility] [id number] [facility] 08:33:00 08:33:00 Dat Daugherty, l DO, PA DO, SANTHOSH [place] 2016-02-13 2016-02-13 lab nullFlavo Hemal [id number] -a [facility] 21:04:00 21:04:00 results mindy Daugherty 7e0-67l2-2 l DO, PA 4bf-04x160 Francesca nn 4504e6 2016-02-13 2016-02-13 lab nullFlavo Hemal [id number] -2 [facility] 21:04:00 21:04:00 results mindy Daugherty 492-45bc-b l DO, PA 066-bac3c6 Francesca nn 99dff6 2016-02-13 2016-02-13 lab nullFlavo Hemal [id number] -7 [facility] 21:04:00 21:04:00 results mindy Daugherty 540-4db4-a l DO, PA [id number]-e3ab87 Francesca nn 3b50cb 2016-02-13 2016-02-13 lab nullFlavo Hemal [id number] -a [facility] 21:04:00 21:04:00 results mindy Daugherty 0m8-35d1-1 l DO, PA 4bf-50u667 Francesca nn 4504e6 2016-02-13 2016-02-13 lab nullFlavo Hemal [id number] -2 [facility] 21:04:00 21:04:00 results mindy Daugherty 492-45bc-b l DO, PA 066-bac3c6 [facility]ca nn 99dff6 2016-02-13 2016-02-13 lab nullFlavo Hemal [id number] -7 [facility] 21:04:00 21:04:00 results mindy Daugherty 540-4db4-a l DO, PA [id number]-e3ab87 Francesca nn 3b50cb 2016-02-13 2016-02-13 lab nullFlavo Hemal [id number] -8 [facility] 20:04:00 20:04:00 results mindy Daugherty 548-41ab-8 l DO, PA 13c-940ca9 Francesca nn bd80c4 2016-02-13 2016-02-13 lab nullFlavo Hemal [id number] -3 [facility] 20:04:00 20:04:00 results mindy Daugherty 298-4646-8 l DO, PA 5ca-5df2fb Francesca nn 1e87cc 2016-02-13 2016-02-13 lab nullFlavo Hemal [id number] -b [facility] 20:04:00 20:04:00 results mindy Daugherty 630-46d2-8 l DO, PA 61b-e7ec40 [facility] nn 5ccabf 2016-02-13 2016-02-13 lab nullFlavo Hemal [id number] -9 [facility] 20:04:00 20:04:00 results mindy Daugherty 855-47dd-8 l DO, PA 059-03ac18 [facility]ca nn d6b61f 2016-02-13 2016-02-13 lab nullFlavo Hemal [id number] -8 [facility] 20:04:00 20:04:00 results mindy Daugherty 548-41ab-8 l DO, PA 13c-940ca9 [facility]ca nn bd80c4 2016-02-13 2016-02-13 lab nullFlavo Hemal [id number] -3 [facility] 20:04:00 20:04:00 results mindy Daugherty 298-4646-8 l DO, SANTHOSH 5ca-5df2fb Francesca nn 1e87cc 2016-02-13 2016-02-13 lab nullFlavo Hemal [id number] -b [facility] 20:04:00 20:04:00 results mindy Daugherty 630-46d2-8 l DO, SANTHOSH [id number] Francesca orozco 5ccabf 2016-02-13 2016-02-13 lab nullFlavo Hemal [id number] -9 [facility] 20:04:00 20:04:00 results mindy Daugherty 855-47dd-8 l DO, SANTHOSH [id number] Francesca nn d6b61f 2016-02-13 2016-02-13 Outpatient Hemal Hemal [id number] [facility] 15:04:00 15:04:00 Dat Daugherty, l DO, SANTHOSH TREVIZO DO 2016-01-02 2016-01-02 U/S nullFlavo Hemal [id number] -d [facility] 22:45:00 22:45:00 results mindy Daugherty 87b-45f1-b l DO, [place] [id number] Francesca orozco [id number] 2016-01-02 2016-01-02 U/S nullFlavo Hemal [id number] -0 [facility] 22:45:00 22:45:00 results mindy Daugherty 9r6-931w-2 l DO, SANTHOSH [id number] Francesca orozco 91eebc 2016-01-02 2016-01-02 U/S nullFlavo Hemal [id number] -b [facility] 22:45:00 22:45:00 results mindy Daugherty 65e-41d5-a l DOSANTHOSH 18e-7c4a4c Francesca nn c2b40d 2016-01-02 2016-01-02 U/S nullFlavo Hemal [id number] -d [facility] 22:45:00 22:45:00 results mindy Dat, 87b-45f1-b l DO, [place] [id number]-[id number] Francesca nn a9fc43 2016-01-02 2016-01-02 U/S nullFlavo Hemal [id number] -0 [facility] 22:45:00 22:45:00 results mindy Daugherty, 5k2-883n-3 l DO, [place] [id number] Francesca nn 91eebc 2016-01-02 2016-01-02 U/S nullFlavo Hemal [id number] -b [facility] 22:45:00 22:45:00 results mindy Daugherty, 65e-41d5-a l DO, [place] 18e-7c4a4c Francesca nn c2b40d 2016-01-02 2016-01-02 U/S nullFlavo Hemal [id number] -4 [facility] 21:45:00 21:45:00 results mindy Dat bdb-4d96-a l DO, [place] fb7-b2bd1c Francesca nn [id number] 2016-01-02 2016-01-02 U/S nullFlavo Hemal [id number] -4 [facility] 21:45:00 21:45:00 results mindy Dat bdb-4d96-a l DO, [place] fb7-b2bd1c Francesca nn [id number] 2016-01-02 2016-01-02 U/S nullFlavo Hemal [id number] -5 [facility] 21:45:00 21:45:00 results mindy Daugherty, 5ee-4bbf-8 l DO, [place] [id number] Francesca nn 1c7ad3 2016-01-02 2016-01-02 U/S nullFlavo Hemal [id number] -6 [facility] 21:45:00 21:45:00 results mindy Daugherty, 7ef-4a6d-a l DO, [place] [id number] Francesca nn e6c72a 2016-01-02 2016-01-02 U/S nullFlavo Hemal [id number] -c [facility] 21:45:00 21:45:00 results imndy Daugherty 9be-4bbf-b l DO, [place] [id number]-b7ec80 Francesca nn 490bd5 2016-01-02 2016-01-02 U/S nullFlavo Hemal [id number] -c [facility] 21:45:00 21:45:00 results mindy Daugherty 1db-4fcb-a l DO, [place] 741-f93dd6 Francesca nn 76551r 2016-01-02 2016-01-02 U/S null[facility] 1222jsx1 -5 [facility] 21:45:00 21:45:00 results mindy Daugherty 5ee-4bbf-8 l DO, SANTHOSH 621-1e8b22 Francesca nn 1c7ad3 2016-01-02 2016-01-02 U/S [facility] v5z5139p -6 [facility] 21:45:00 21:45:00 results mindy Daugherty 7ef-4a6d-a l DO, SANTHOSH y71-304a56 Francesca nn e6c72a 2016-01-02 2016-01-02 U/S [facility] qd4398g0 -c [facility] 21:45:00 21:45:00 results mindy Daugherty 9be-4bbf-b l DO, [place] 907-b7ec80 Francesca nn 490bd5 2016-01-02 2016-01-02 U/S [facility] [id number] -c [facility] 21:45:00 21:45:00 results mindy Daugherty 1db-4fcb-a l DO, SANTHOSH 741-f93dd6 Francesca nn 80164b 2016-01-02 2016-01-02 Outpatient Hemal Hemal [id number] [facility] 16:45:00 16:45:00 Dat Daugherty, l DO, SANTHOSH TREVIZO DO 2015-11-14 2015-11-14 Lab [facility] 058886h3 -f [facility] 22:12:00 22:12:00 results mindy Daugherty e09-0mut-9 l DO, PA cdb-748370 Francesca nn bf62dc 2015-11-14 2015-11-14 Lab [facility] [id number] -e [facility] 22:12:00 22:12:00 results mindy Daugherty 3cb-4852-b l DO, PA 654-kt7202 Francesca nn 614a50 2015-11-14 2015-11-14 Lab [facility] 8l7s1089 -1 [facility] 22:12:00 22:12:00 results mindy Daugherty 825-4439-b l DO, PA dec-6de45c Francesca nn bn2050 2015-11-14 2015-11-14 Lab [facility] m7373k6e -7 [facility] 22:12:00 22:12:00 results mindy Daugherty ca0-423e-8 l DO, PA 600-27555f [facility] y3m561 2015-11-14 2015-11-14 Lab [facility] 978104u0 -f [facility] 22:12:00 22:12:00 results mindy Daugherty l98-2oef-5 l DO, PA cdb-110524 Francesca nn bf62dc 2015-11-14 2015-11-14 Lab [facility] [id number] -e [facility] 22:12:00 22:12:00 results mindy Daugherty, 3cb-4852-b l DO, PA 654-kx4221 [facility] 614a50 2015-11-14 2015-11-14 Lab [facility] 7u8d8456 -1 [facility] 22:12:00 22:12:00 results mindy Daugherty 825-4439-b l DO, PA dec-6de45c Francesca nn ho3118 2015-11-14 2015-11-14 Lab [facility] d8991u9q -7 [facility] 22:12:00 22:12:00 results mindy Daugherty ca0-423e-8 l DO, PA 600-83054p [facility] e7k939 2015-11-14 2015-11-14 Lab [facility] a7gt02a7 -8 [facility] 21:12:00 21:12:00 results mindy Daugherty 6p7-10cw-8 l DO, PA 5z4-2x74s4 Francesca nn 9cedaf 2015-11-14 2015-11-14 Lab [facility] 4cn8t665 -e [facility] 21:12:00 21:12:00 results mindy Daugherty 59e-4e67-b l DO, PA 7df-68c39b Francesca nn 9515f7 2015-11-14 2015-11-14 Lab [facility] vv50e6d2 -2 [facility] 21:12:00 21:12:00 results mindy Daugherty 562-4b3d-b l DO, PA p85-l90578 [facility] nn 476a39 2015-11-14 2015-11-14 Lab [facility] u7t64tpe -0 [facility] 21:12:00 21:12:00 results mindy Daugherty 7dd-4af6-9 l DO, PA 0z0-842256 [facility] nn a3cded 2015-11-14 2015-11-14 Lab [facility] 6rj20hl1 -f [facility] 21:12:00 21:12:00 results mindy Daugherty 364-41dc-9 l DO, PA def-f6563o [facility] nn 7jq859 2015-11-14 2015-11-14 Lab [facility] y4il51q6 -8 [facility] 21:12:00 21:12:00 results mindy Daugherty 3n0-38bx-9 l DO, PA 8q1-5z37z5 [facility] nn 9cedaf 2015-11-14 2015-11-14 Lab [facility] 9nk9g265 -e [facility] 21:12:00 21:12:00 results mindy Daugherty 59e-4e67-b l DO, PA 7df-68c39b [facility] nn 9515f7 2015-11-14 2015-11-14 Lab [facility] jw95p5j1 -2 [facility] 21:12:00 21:12:00 results mindy Daugherty 562-4b3d-b l DO, PA x74-j67239 [facility] 476a39 2015-11-14 2015-11-14 Lab [facility] n8p42wfr -0 [facility] 21:12:00 21:12:00 results mindy Daugherty 7dd-4af6-9 l DO, PA 3s5-198420 Francesca nn a3cded 2015-11-14 2015-11-14 Lab [facility] 6lr64vg4 -f [facility] 21:12:00 21:12:00 results mindy Daugherty 364-41dc-9 l DO, PA def-h5766y Francesca nn 0hb553 2015-11-14 2015-11-14 Outpatient Hemal Hemal [id number] [facility] 16:12:00 16:12:00 Dat Daugherty, l DO, SANTHOSH TREVIZO DO 2015-11-07 2015-11-07 Physical/C null[facility]al ff735 736-0 [facility] 16:00:00 16:00:00 onsult-con mindy Daugherty, 2x8-2yx3-x l f DO, SANTHOSH 114-e3e23e Francesca nn 2958bb 2015-11-07 2015-11-07 Physical/C null[facility]avo Hemal 68899 f56-5 [facility]oria 16:00:00 16:00:00 onsult-con mindy Daugherty, 98a-406e-a l f DO, SANTHOSH 8ea-72c9e0 Francesca nn c4cdb0 2015-11-07 2015-11-07 Physical/C null[facility]al ab115 532-e [facility] 16:00:00 16:00:00 onsult-con mindy Daugherty, 243-4b3f-9 l f DO, PA 88e-3w1520 [facility] nn 2de57b 2015-11-07 2015-11-07 Physical/C null[facility] ff735 736-0 [facility]oria 16:00:00 16:00:00 onsult-con mindy Daugherty, 7l9-9sw8-u l f DO, PA 114-e3e23e Francesca nn 2958bb 2015-11-07 2015-11-07 Physical/C null[facility] Hemal 20811 f56-5 [facility]oria 16:00:00 16:00:00 onsult-con r Dat, 98a-406e-a l f DO, SANTHOSH 8ea-72c9e0 Francesca nn c4cdb0 2015-11-07 2015-11-07 Physical/C null[facility] ab115 532-e [facility] 16:00:00 16:00:00 onsult-con mindy Daugherty, 243-4b3f-9 l f DO, PA 88e-4s2781 Francesca nn 2de57b 2015-11-07 2015-11-07 Physical/C null[facility]al 4517f aee-1 [facility]oria 15:00:00 15:00:00 onsult-con mindy Daugherty, 13c-4a65-8 l f DO, SANTHOSH 448-2f1bc6 Francesca nn 295c04 2015-11-07 2015-11-07 Physical/C [facility] 4517f aee-1 [facility] 15:00:00 15:00:00 onsult-con mindy Daugherty, 13c-4a65-8 l f DO, PA 448-2f1bc6 Francesca nn 295c04 2015-11-07 2015-11-07 Outpatient Hemal Hemal [id number] [facility] 10:00:00 10:00:00 Dat Daugherty, l DO, SANTHOSH TREVIZO DO 2015 2015 BP meds null[facility]al 6097tr03 -e [facility] 15:42:00 15:42:00 mindy Daugherty 96e-4e47-8 l DO, SANTHOSH shantell-f0a8c7 Francesca nn ed92b2 2015 2015 BP meds [facility] 312h6jm2 -a [facility] 15:42:00 15:42:00 mindy Daugherty f8k-6399-v patricia DO, SANTHOSH j4w-656n53 Francesca pmd638 2015 2015 BP meds [facility] 1836691q -8 [facility] 15:42:00 15:42:00 mindy Daugherty 9p1-065z-1 l DO, PA 1z8-1elw2y [facility] nn 4g5337 2015 2015 BP meds null[facility] Hemal 36117x77 -b Mem[facility] 15:42:00 15:42:00 r Dat 045-48ab-a l DO, PA 262-bfu282 [facility] nn 824d8b 2015 2015 BP meds [facility] 4823xj69 -e [facility]oria 15:42:00 15:42:00 r Dat, 96e-4e47-8 l DO, PA shantell-f0a8c7 [facility] nn ed92b2 2015 2015 BP meds [facility]al 316i3sm5 -a [facility]oria 15:42:00 15:42:00 r Dat r3a-7874-g l DO, PA m5o-697a25 [facility] nn ccd315 2015 2015 BP meds null[facility] Hemal 9598869m -8 Memoria 15:42:00 15:42:00 r Dat, 0b7-394v-8 l DO, PA 8o6-5jze9v [facility] nn 6s5342 2015 2015 BP meds [facility]al 29672f28 -b [facility] 15:42:00 15:42:00 r Dat, 045-48ab-a l DO, PA 262-kli535 [facility] nn 824d8b 2015 2015 BP meds [facility]al 547a6un2 -d Memoria 14:42:00 14:42:00 r Dat ed2-46e7-9 l DO, PA 502-7b8a6c [facility] nn 18adca 2015 2015 BP meds [facility]al 5c91k866 -3 Memoria 14:42:00 14:42:00 r Dat cd2-4461-a l DO, PA 4h4-4dis5f [facility] 0c4517 2015 2015 BP meds [facility] q3gpq1ab -5 Memoria 14:42:00 14:42:00 r Dat u15-7c8i-9 l DO, [place] da0-2c981t Francesca nn 57a4e8 2015 2015 BP meds [facility] 9236zh5t -3 Memoria 14:42:00 14:42:00 r Dat m9d-713e-9 l DO, PA fe0-92fe16 Francesca nn 6n5051 2015 2015 BP meds [facility] 2e45ow02 -8 Memoria 14:42:00 14:42:00 r Dat 0k6-544p-v l DO, PA 330-7539c4 Francesca nn 3w102p 2015 2015 BP meds [facility]al 4577469s -b Memoria 14:42:00 14:42:00 r Dat fcb-4d7d-8 l DO, PA 413-37a25c Francesca nn 08aef1 2015 2015 BP meds [facility] 310h3hy4 -d [facility] 14:42:00 14:42:00 r Dat ed2-46e7-9 l DO, PA 502-7b8a6c Francesca nn 18adca 2015 2015 BP meds [facility] 7z72b342 -3 Memoria 14:42:00 14:42:00 mindy Daugherty cd2-4461-a l DO, PA 7u5-9lwl1a Francesca nn 4r0208 2015 2015 BP meds [facility] z2rlu9fc -5 [facility]oria 14:42:00 14:42:00 r Dat d07-6c2z-6 l DO, [place] da0-9x865u Francesca nn 57a4e8 2015 2015 BP meds [facility] 0725zf5z -3 [facility]oria 14:42:00 14:42:00 r Dat h1q-042h-1 l DO, PA fe0-92fe16 Francesca nn 3b2328 2015 2015 BP meds [facility] 8r41lv06 -8 Memoria 14:42:00 14:42:00 mindy Daugherty 4f1-438j-p l DO, PA 330-7539c4 Francesca nn 3a616q 2015 2015 BP meds [facility] 3722974h -b [facility] 14:42:00 14:42:00 mindy Dat fcb-4d7d-8 l DO, PA 413-37a25c Francesca nn 08aef1 2015 2015 Outpatient Hemal Hemal [id number] Mem[facility] 09:42:00 09:42:00 Dat Daugherty, l DO, PA SANTHOSH REARDON 2015-05-15 2015-05-15 Lab [facility] t3b592sd -4 [facility]oria 17:09:00 17:09:00 results mindy Dat b7q-1273-m l DO, PA 06d-53cf13 Francesca nn 78e68b 2015-05-15 2015-05-15 Lab [facility] m836jm33 -d [facility] 17:09:00 17:09:00 results imndy Dat n33-036j-h l DO, SANTHOSH 8ba-19c6a9 Francesca nn c339b0 2015-05-15 2015-05-15 Lab [facility] [id number] -c [facility] 17:09:00 17:09:00 results mindy Dat 924-471e-9 l DO, [place] 775-c386e1 Francesca nn 602c8f 2015-05-15 2015-05-15 Lab [facility] 26xeqvm7 -a [facility]oria 17:09:00 17:09:00 results mindy Dat w06-7j37-9 l DO, PA cac-58e8b6 Francesca nn 611d33 2015-05-15 2015-05-15 Lab [facility] z8q706lq -4 [facility]oria 17:09:00 17:09:00 results mindy Daugherty f6f-4894-y l DO, PA 06d-53cf13 [facility] nn 78e68b 2015-05-15 2015-05-15 Lab [facility] Hemal f633ol97 -d Memoria 17:09:00 17:09:00 results mindy Daugherty f32-893e-y l DO, PA 8ba-19c6a9 [facility] nn c339b0 2015-05-15 2015-05-15 Lab null[facility] Hemal [id number] -c [facility]oria 17:09:00 17:09:00 results mindy Daugherty 924-471e-9 l DO, PA 775-c386e1 [facility] nn 602c8f 2015-05-15 2015-05-15 Lab [facility] Hemal 20ezeab1 -a Memoria 17:09:00 17:09:00 results mindy Daugherty v93-1o08-5 l DO, PA cac-58e8b6 [facility] nn 611d33 2015-05-15 2015-05-15 Lab [facility] Hemal 86883829 -c Memoria 16:09:00 16:09:00 results mindy Daugherty x25-52x3-n l DO, PA 974-c7b4d5 [facility] 8ab9e7 2015-05-15 2015-05-15 Lab [facility] Hemal 945g1390 -9 Memoria 16:09:00 16:09:00 results mindy Daugherty f9v-780h-1 l DO, [place] 8ab-d289b2 [facility] nn 77f2eb 2015-05-15 2015-05-15 Lab [facility] Hemal 34417ak4 -0 Memoria 16:09:00 16:09:00 results mindy Daugherty t8r-5y31-d l DO, PA e78-4p500o [facility] 40s098 2015-05-15 2015-05-15 Lab [facility] Hemal 088i703q -0 Memoria 16:09:00 16:09:00 results mindy Daugherty 634-494d-9 l DO, PA 71c-6n6858 [facility] d3e208 2015-05-15 2015-05-15 Lab [facility] Hemal 15894j81 -4 Memoria 16:09:00 16:09:00 results mindy Dat 850-4d54-9 l DO, PA i3m-k21a11 [facility] a215c2 2015-05-15 2015-05-15 Lab [facility] Hemal 79896nfj -a [facility]oria 16:09:00 16:09:00 results mindy Dat 796-4add-8 l DO, PA 4de-686d7e [facility] 486984 5674-08-31 2015-05-15 Lab [facility] Hemal 476vfw62 -8 Memoria 16:09:00 16:09:00 results mindy Daugherty u4z-327w-u l DO, PA q27-026727 [facility] a83c40 2015-05-15 2015-05-15 Lab [facility] Hemal [id number] -c Memoria 16:09:00 16:09:00 results mindy Daugherty w76-78g1-j l DO, PA 974-c7b4d5 [facility] 8ab9e7 2015-05-15 2015-05-15 Lab [facility] Hemal 939b6530 -9 Memoria 16:09:00 16:09:00 results mindy Dat z5w-302a-9 l DO, PA 8ab-d289b2 [facility] 77f2eb 2015-05-15 2015-05-15 Lab [facility] Hemal 04875bb9 -0 Memoria 16:09:00 16:09:00 results mindy Daugherty o5q-7u36-w l DO, PA c68-5p575h [facility] 33g926 2015-05-15 2015-05-15 Lab [facility] Hemal 794n567w -0 Memoria 16:09:00 16:09:00 results mindy Daugherty 634-494d-9 l DO, PA 71c-2x9911 [facility] e5s413 2015-05-15 2015-05-15 Lab [facility] Hemal 47441h13 -4 [facility] 16:09:00 16:09:00 results mindy Dat, 850-4d54-9 l DO, PA x6w-e06f51 Francesca orozco a215c2 2015-05-15 2015-05-15 Lab [facility] 20404gju -a [facility]oria 16:09:00 16:09:00 results mindy Dat 796-4add-8 l DO, [place] 4de-686d7e Francesca orozco 541901 5930-08-31 2015-05-15 Lab [facility] 632ywa06 -8 [facility]oria 16:09:00 16:09:00 results mindy Dat, x4l-386t-z l DO, PA h99-201646 Francesca orozco a83c40 2015-05-15 2015-05-15 Outpatient Hemal Hemal [id number] [facility] 11:09:00 11:09:00 Dat Daugherty, l DO, PA SANTHOSH REARDON 2015-03-02 2015-03-02 FOBT null[facility] Hemal tv4ui400 -d Memoria 17:48:00 17:48:00 mindy Daugherty 042-4317-b l DO, PA 547-e9f8c2 Francesca orozco 6e2a50 2015-03-02 2015-03-02 FOBT [facility] Hemal 59dseg01 -d [facility]oria 17:48:00 17:48:00 mindy Daugherty 55a-419f-9 l DO, PA 445-cc63f1 Francesca orozco 27a9ed 2015-03-02 2015-03-02 FOBT null[facility] Hemal [id number] -1 [facility]oria 17:48:00 17:48:00 mindy Daugherty 80f-460f-b l DO, PA f17-obfo95 Francesca orozco e56002 2015-03-02 2015-03-02 FOBT null[facility] Hemal 3239zq46 -8 Memoria 17:48:00 17:48:00 mindy Daugherty 387-452c-9 l DO, PA b37-833e75 Francesca orozco b575d8 2015-03-02 2015-03-02 FOBT [facility] Hemal em3ey318 -d Memoria 17:48:00 17:48:00 r Dat, 042-4317-b l DO, PA 547-e9f8c2 Francesca orozco 6e2a50 2015-03-02 2015-03-02 FOBT [facility] Hemal 02qsgi32 -d [facility]oria 17:48:00 17:48:00 r Dat, 55a-419f-9 l DO, PA 445-cc63f1 Francesca nn 27a9ed 2015-03-02 2015-03-02 FOBT null[facility] Hemal [id number] -1 [facility]oria 17:48:00 17:48:00 r Dat, 80f-460f-b l DO, PA a79-xpkb51 Francesca orozco k37674 2015-03-02 2015-03-02 FOBT [facility] Hemal 4376vi21 -8 Memoria 17:48:00 17:48:00 r Dat 387-452c-9 l DO, PA n92-964d97 Francesca orozco b575d8 2015-03-02 2015-03-02 FOBT [facility] Hemal 18ex195n -5 [facility]oria 16:48:00 16:48:00 r Dat 5q4-07z6-s l DO, PA 930-7h9906 Francesca orozco f1ce54 2015-03-02 2015-03-02 FOBT [facility] Hemal 86ppw52l -5 [facility]oria 16:48:00 16:48:00 mindy Daugherty g22-7243-2 l DO, PA 811-z2q924 Francesca nn 5ea3fb 2015-03-02 2015-03-02 FOBT [facility] Hemal 33tb809e -b Memoria 16:48:00 16:48:00 mindy Daugherty 288-40f9-a l DO, PA 9s3-x78112 Francesca orozco k39310 2015-03-02 2015-03-02 FOBT [facility] 7e7q133g -0 Memoria 16:48:00 16:48:00 mindy Daugherty q89-6w81-9 l DO, PA 7fa-9061a0 [facility] qd0226 2015-03-02 2015-03-02 FOBT null[facility] Hemal 67n9950w -3 Memoria 16:48:00 16:48:00 r Dat 1y4-472q-u l DO, [place] 91a-c5a8a4 Francesca orozco zw097n 2015-03-02 2015-03-02 FOBT [facility] Hemal 3534f334 -d Memoria 16:48:00 16:48:00 r Dat, aac-4beb-9 l DO, PA 195-198157 [facility] nn fca2da 2015-03-02 2015-03-02 FOBT [facility] Hemal gr795be8 -5 Memoria 16:48:00 16:48:00 r Dat 3m1-1975-1 l DO, PA i53-2bu0u9 [facility] ernesto 058936 8850-06-18 2015-03-02 FOBT [facility] Hemal 82pj077k -5 Memoria 16:48:00 16:48:00 r Dat 7t9-32m1-x l DO, PA 930-9c4651 [facility] nn f1ce54 2015-03-02 2015-03-02 FOBT [facility] Hemal 33hcn42x -5 Memoria 16:48:00 16:48:00 r Dat m61-8237-7 l DO, PA 811-d1c687 [facility] 5ea3fb 2015-03-02 2015-03-02 FOBT [facility] Hemal 42go908y -b Memoria 16:48:00 16:48:00 mindy Daugherty 288-40f9-a l DO, PA 2z1-u97768 [facility] i71137 2015-03-02 2015-03-02 FOBT [facility] Hemal 7r2b338s -0 Memoria 16:48:00 16:48:00 r Dat u27-0e49-7 l DO, PA 7fa-9061a0 [facility] ou6602 2015-03-02 2015-03-02 FOBT [facility] Hemal 90d9802d -3 Memoria 16:48:00 16:48:00 mindy Daugherty 4a6-786r-r l DO, PA 91a-c5a8a4 Francesca orozco rh742n 2015-03-02 2015-03-02 FOBT [facility] Hemal 1670n147 -d Memoria 16:48:00 16:48:00 mindy Daugherty aac-4beb-9 l DO, PA 195-835124 Francesca nn fca2da 2015-03-02 2015-03-02 FOBT [facility] gu819vt5 -5 Memoria 16:48:00 16:48:00 mindy Daugherty 8k8-8231-0 l DO, PA r02-1or6y3 [facility] ernesto 687578 7058-06-08 2015-02-20 Ferraitin nullFlavo Hemal c4a32f 40-4 Memoria 19:58:00 19:58:00 Results mindy Daugherty 373-4adc-b l DO, PA 643-962001 [facility] ernesto c86fe2 2015-02-20 2015-02-20 [facility]in null[facility]avo Hemal hj7277 d6-1 Memoria 19:58:00 19:58:00 Results mindy Daugherty 7f3-2u99-e l DO, PA 260-ee62a9 [facility] g2e706 2015-02-20 2015-02-20 [facility] nullFlavo Hemal 550a34 3e-4 Memoria 19:58:00 19:58:00 Results mindy Daugherty bd3-459b-a l DO, PA v5w-54g78v [facility] ernesto 253f32 2015-02-20 2015-02-20 [facility] null[facility] Hemal e80ddf ea-b Memoria 19:58:00 19:58:00 Results mindy Daugherty 8u7-33xv-3 l DO, PA g7h-132hn3 Francesca ernesto 4123ec 2015-02-20 2015-02-20 [facility] Hemal c4a32f 40-4 Memoria 19:58:00 19:58:00 Results mindy Daugherty 373-4adc-b l DO, PA 643-824103 [facility] c86fe2 2015-02-20 2015-02-20 [facility] Hemal zf1931 d6-1 Memoria 19:58:00 19:58:00 Results mindy Daugherty 6k4-5o26-d l DO, PA 260-ee62a9 Francesca nn n4t179 2015-02-20 2015-02-20 [facility] null[facility] Hemal 550a34 3e-4 Memoria 19:58:00 19:58:00 Results mindy Daugherty bd3-459b-a l DO, PA n0h-99h11b Francesca nn 253f32 2015-02-20 2015-02-20 [facility] e80ddf ea-b Memoria 19:58:00 19:58:00 Results mindy Daugherty 3h0-60ik-7 l DO, PA y3o-876hj7 Francesca nn 4123ec 2015-02-20 2015-02-20 [facility] null[facility] Hemal ab4ae9 58-8 Memoria 18:58:00 18:58:00 Results mindy Daugherty k00-4pxw-6 l DO, PA 223-2hi607 [facility] nn f68ca7 2015-02-20 2015-02-20 [facility] Hemal y9990v 94-e Memoria 18:58:00 18:58:00 Results mindy Daugherty k38-5l26-j l DO, PA 514-cba7ca [facility] nn f423b5 2015-02-20 2015-02-20 [facility] Hemal 1aaaf7 8b-c Memoria 18:58:00 18:58:00 Results mindy Daugherty ad5-4820-a l DO, [place] 559-b7a3e3 Francesca nn d78aa2 2015-02-20 2015-02-20 [facility] Hemal 3rx239 e5-0 Memoria 18:58:00 18:58:00 Results mindy Daugherty 13f-4c79-b l DO, PA 8t7-79b4ht [facility] nn 551871 0888-06-08 2015-02-20 [facility] null[facility] Hemal 43eb37 e8-a Memoria 18:58:00 18:58:00 Results mindy Daugherty 428-435c-a l DO, PA w7l-4531z9 [facility]ca nn 18a4b4 2015-02-20 2015-02-20 [facility] 9bead6 58-8 Memoria 18:58:00 18:58:00 Results mindy Daugherty 717-4dfb-9 l DO, PA b24-92dh74 [facility]ca nn aea4bf 2015-02-20 2015-02-20 [facility] null[facility] Hemal 259e9b 1a-4 Memoria 18:58:00 18:58:00 Results mindy Daugherty 759-476f-8 l DO, PA 861-2e0d19 Francesca nn f91cee 2015-02-20 2015-02-20 [facility] ab4ae9 58-8 Memoria 18:58:00 18:58:00 Results mindy aDugherty n29-1mcy-8 l DO, PA 223-0gc028 Francesca nn f68ca7 2015-02-20 2015-02-20 [facility] m4951e 94-e Mem[facility] 18:58:00 18:58:00 Results mindy Daugherty b21-4f27-n l DO, PA 514-cba7ca Francesca nn f423b5 2015-02-20 2015-02-20 [facility] Hemal 1aaaf7 8b-c Memoria 18:58:00 18:58:00 Results mindy Daugherty ad5-4820-a l DO, PA 559-b7a3e3 Francesca nn d78aa2 2015-02-20 2015-02-20 [facility] 9nx591 e5-0 Memoria 18:58:00 18:58:00 Results mindy Daugherty 13f-4c79-b l DO, PA 2g7-85e4jr Francesca nn 101689 6632-06-08 2015-02-20 [facility] null[facility] Hemal 43eb37 e8-a Memoria 18:58:00 18:58:00 Results mindy Daugherty 428-435c-a l DO, PA v1m-0841g7 Francesca nn 18a4b4 2015-02-20 2015-02-20 [facility] 9bead6 58-8 Memoria 18:58:00 18:58:00 Results mindy Daugherty 717-4dfb-9 l DO, PA t20-08he09 [facility]ca nn aea4bf 2015-02-20 2015-02-20 [facility] null[facility] Hemal 259e9b 1a-4 Memoria 18:58:00 18:58:00 Results mindy Daugherty 759-476f-8 l DO, [place] [id number] Francesca nn f91cee 2015-02-13 2015-02-13 Lab nullFlavo Hemal [id number] -c [facility]oria 17:33:00 17:33:00 results mindy Daugherty l77-6do9-f l DO, [place] [id number] Francesca nn 4dbe97 2015-02-13 2015-02-13 Lab nullFlavo Hemal [id number] -f [facility]oria 17:33:00 17:33:00 results mindy Daugherty 513-4387-9 l DO, [place] [id number] Francesca nn [id number] 2015-02-13 2015-02-13 Lab nullFlavo Hemal [id number] -b [facility] 17:33:00 17:33:00 results mindy Daugherty 29b-42c5-8 l DO, [place] [id number] Francesca nn 5ddf36 2015-02-13 2015-02-13 Lab nullFlavo Hemal [id number] -3 [facility] 17:33:00 17:33:00 results mindy Daugherty p80-774i-4 l DO, PA [id number] Francesca nn 917e8a 2015-02-13 2015-02-13 Lab nullFlavo Hemal [id number] -c [facility]oria 17:33:00 17:33:00 results mindy Daugherty m35-1jg3-n l DO, [place] [id number] Francesca nn 4dbe97 2015-02-13 2015-02-13 Lab nullFlavo Hemal [id number] -f [facility] 17:33:00 17:33:00 results mindy Daugherty 513-4387-9 l DO, PA [id number] [facility] [id number] 2015-02-13 2015-02-13 Lab nullFlavo Hemal [id number] -b Memoria 17:33:00 17:33:00 results mindy Daugherty 29b-42c5-8 l DO, [place] p3s-795p6b [facility] 5ddf36 2015-02-13 2015-02-13 Lab nullFlavo Hemal [id number] -3 Memoria 17:33:00 17:33:00 results mindy Daugherty t89-358o-3 l DO, PA [id number] [facility] [id number] 2015-02-13 2015-02-13 Lab nullFlavo Hemal [id number] -d [facility]oria 16:33:00 16:33:00 results mindy Daugherty v36-25h7-0 l DO, PA r10-w112l7 [facility] 3db4e5 2015-02-13 2015-02-13 Lab nullFlavo Hemal [id number] -7 Memoria 16:33:00 16:33:00 results mindy Daugherty 8m7-59t9-4 l DO, PA [id number] [facility] eabfec 2015-02-13 2015-02-13 Lab nullFlavo Hemal [id number] -9 [facility]oria 16:33:00 16:33:00 results mindy Daugherty 729-41d5-9 l DO, [place] [id number] [facility] [id number] 2015-02-13 2015-02-13 Lab nullFlavo Hemal [id number] -1 [facility] 16:33:00 16:33:00 results mindy Daugherty 269-45ba-8 l DO, PA 40b-19df80 [facility] [id number] 2015-02-13 2015-02-13 Lab nullFlavo Hemal [id number] -3 [facility] 16:33:00 16:33:00 results mindy Daugherty 8ad-4fbf-a l DO, [place] [id number] Francesca nn 40da7b 2015-02-13 2015-02-13 Lab nullFlavo Hemal [id number] -8 [facility] 16:33:00 16:33:00 results mindy Daugherty aa2-4df6-a l DO, [place] 22a-3fb5fb Francesca nn 270d8b 2015-02-13 2015-02-13 Lab nullFlavo Hemal [id number] -a [facility] 16:33:00 16:33:00 results mindy Daugherty 5ff-45b9-8 l DO, [place] [id number] [facility] nn 2415f9 2015-02-13 2015-02-13 Lab nullFlavo Hemal [id number] -d [facility]oria 16:33:00 16:33:00 results mindy Daugherty c99-96x6-0 l DO, [place] [id number]-[id number] [facility] 3db4e5 2015-02-13 2015-02-13 Lab nullFlavo Hemal [id number] -7 [facility]oria 16:33:00 16:33:00 results mindy Daugherty 0h9-71j7-9 l DO, PA [id number]-[id number] [facility] eabfec 2015-02-13 2015-02-13 Lab nullFlavo Hemal [id number] -9 [facility]oria 16:33:00 16:33:00 results mindy Daugherty 729-41d5-9 l DO, PA [id number] [facility] [id number] 2015-02-13 2015-02-13 Lab nullFlavo Hemal [id number] -1 [facility] 16:33:00 16:33:00 results mindy Daugherty 269-45ba-8 l DO, PA 40b-19df80 [facility] [id number] 2015-02-13 2015-02-13 Lab nullFlavo Hemal [id number] -3 Memoria 16:33:00 16:33:00 results mindy Daugherty 8ad-4fbf-a l DO, [place] [id number] [facility] 40da7b 2015-02-13 2015-02-13 Lab nullFlavo Hemal [id number] -8 [facility]oria 16:33:00 16:33:00 results r Dat aa2-4df6-a l DO, [place] 22a-3fb5fb [facility] [place] nn 270d8b 2015-02-13 2015-02-13 Lab nullFlavo Hemal [id number] -a [facility] 16:33:00 16:33:00 results mindy Daugherty 5ff-45b9-8 l DO, [place] [id number] [facility] [place] nn 2415f9 2015-02-09 2015-02-09 copay nullFlavo Hemal [id number] -1 [facility] 17:07:00 17:07:00 r Dat 6fb-47f3-b l DO, [place] 45c-0dee5b [facility] [id number] 2015-02-09 2015-02-09 copay nullFlavo Hemal [id number] -9 [facility] 17:07:00 17:07:00 mindy Daugherty 5ba-4ff2-8 l DO, [place] [id number] [facility] [id number] 2015-02-09 2015-02-09 copay nullFlavo Hemal [id number] -d [facility] 17:07:00 17:07:00 mindy Daugherty z64-78b8-s l DO, [place] c49-38uhp3 [facility] [id number] 1123-05-28 2015-02-09 copay nullFlavo Hemal [id number] -e [facility] 17:07:00 17:07:00 mindy Daugherty g02-20l9-g l DO, [place] [id number] [facility] [id number] 2015-02-09 2015-02-09 copay nullFlavo Hemal [id number] -e [facility] 17:07:00 17:07:00 mindy Daugherty m86-56a3-i l DO, PA [id number] [facility] [id number] 2015-02-09 2015-02-09 copay nullFlavo Hemal [id number] -[id number] Memoria 17:07:00 17:07:00 mindy Daugherty [id number] l DO, PA [id number] Francesca nn [id number] 2015-02-09 2015-02-09 copay nullFlavo Hemal [id number] -9 Mem[facility] 17:07:00 17:07:00 r Dat, [id number] l DO, PA [id number] Francesca nn [id number] 2015-02-09 2015-02-09 copay nullFlavo Hemal [id number] -d [facility] 17:07:00 17:07:00 r Dat, [id number] l DO, PA [id number] Francesca nn [id number] 2015-02-09 copay nullFlavo Hemal [id number] -9 [facility] 16:07:00 16:07:00 r Johnathantaylor, [id number]-[id number] l DO, PA [id number] Francesca nn [id number] 2015-02-09 2015-02-09 copay nullFlavo Hemal [id number] -1 [facility] 16:07:00 16:07:00 r Dat, 06a-[id number] l DO, PA [id number] Francesca nn [id number] 2015-02-09 2015-02-09 copay nullFlavo Hemal [id number] -4 [facility] 16:07:00 16:07:00 r Ramakrishnayakov, [id number] l DO, PA [id number] Francesca nn [id number] 2015-02-09 2015-02-09 copay nullFlavo Hemal [id number] -8 [facility] 16:07:00 16:07:00 r Dat, [id number] l DO, PA [id number] Francesca nn [id number] 2015-02-09 2015-02-09 copay nullFlavo Hemal [id number] -4 [facility] 16:07:00 16:07:00 r Dat, [id number]-[id number] l DO, PA [id number] Francesca nn [id number] 2015-02-09 2015-02-09 copay nullFlavo Hemal [id number] -c [facility] 16:07:00 16:07:00 r Dat [id number] l DO, PA [id number] Francesca nn [id number] 2015-02-09 2015-02-09 copay nullFlavo Hemal [id number] -9 [facility] 16:07:00 16:07:00 mindy Daugherty [id number] l DO, PA [id number] Francesca nn [id number] 2015-02-09 2015-02-09 copay nullFlavo Hemal [id number] -9 [facility] 16:07:00 16:07:00 r Dat 22e-457a-[id number] l DO, PA [id number] Francesca nn [id number] 2015-02-09 2015-02-09 copay nullFlavo Hemal [id number] -1 [facility] 16:07:00 16:07:00 mindy Daugherty 06a-[id number] l DO, PA [id number] Francesca nn [id number] 2015-02-09 2015-02-09 copay nullFlavo Hemal [id number] -4 [facility] 16:07:00 16:07:00 mindy Daugherty [id number] l DO, PA [id number] Francseca nn [id number] 2015-02-09 2015-02-09 copay nullFlavo Hemal [id number] -8 [facility] 16:07:00 16:07:00 mindy Daugherty [id number] l DO, PA [id number] Francesca nn [id number] 2015-02-09 2015-02-09 copay nullFlavo Hemal [id number] -4 [facility] 16:07:00 16:07:00 mindy Daugherty [id number] l DO, PA [id number] Francesca nn [id number] 2015-02-09 2015-02-09 copay nullFlavo Hemal [id number] -c [facility] 16:07:00 16:07:00 mindy Daugherty [id number] l DO, PA [id number] Francesca orozco [id number] 2015-02-09 2015-02-09 copay nullKaitlino eHmal [id number] -9 [facility] 16:07:00 16:07:00 mindy Daugherty, [id number]-4a40-8 SANTHOSH gomez DO [id number] Francesca orozco [id number] Results This patient has no known results.
[2023-08-11] MEDS ORDERED: NA CHLORIDE 0.9% 500 ML ONE (14:56)
[2023-08-11] MEDS ORDERED: ACETAMINOPHEN 500 MG TAB ONE (14:56)
[2023-08-11 15:27] LABS: Absolute Lymphocytes (CBC) 0.4 K/uL (0.7-4.9); Hematocrit 45.9 % (39.6-49.0); Lymphocytes % 7.4 % (15.3-44.8); MCV 85.6 fL (80-100); MPV 9.3 fL (7.6-11.3); Platelets 226 thou/uL (152-406); RBC Red Blood Cell Count 5.36 M/uL (4.33-5.43)
[2023-08-11 15:48] LABS: Albumin 4.2 g/dL (3.4-5.0); Bilirubin Direct 0.2 mg/dL (0-0.2); Bilirubin Indirect, Calculated 0.4 mg/dL (0.2-0.8); Bilirubin Total 0.6 mg/dL (0.2-1.0); Magnesium 1.9 mg/dL (1.6-2.4); Potassium 3.6 mEq/L (3.5-5.1); Protein, Total 8.9 g/dL (6.4-8.2); Troponin High Sensitivity 10.2 pg/mL (<58.9)
[2023-08-11 16:11] LABS: SARS-COV-2 RT PCR NEGATIVE (NEGATIVE)
[2023-08-11 16:15] LABS: Urine Bacteria None Seen /HPF (<20); Urine Crystals Unidentified Few /HPF (None Seen); Urine RBC <5 /HPF (None Seen)
[2023-08-11 16:16] LABS: Urine Clarity Clear (Clear); Urine Color Colorless (Yellow)
[2023-08-11 16:17] LABS: Urine Bilirubin Negative (Negative); Urine Blood 1+ (Negative); Urine Glucose Negative (Negative); Urine Protein Negative (Negative); Urine Urobilinogen 0.2 (Normal); Urine pH 7.5 (5.0-7.0)
--- NOTE | 2023-08-11 16:17 | RAD REPORT ---
EXAM DESCRIPTION: Josesitot Single View08/11/2023 3:13 pm CLINICAL HISTORY: weakness COMPARISON: Chest Pa And Lat (2 Views) dated 09/19/2019 TECHNIQUE: Portable AP view of the chest. FINDINGS: The lungs are clear. No pneumothorax or effusion. The cardiomediastinal contours are unre markable. IMPRESSION: No acute cardiopulmonary process.
[2023-08-11] MEDS ORDERED: NA CHLORIDE 0.9% 1,000 ML ONE (16:40)
--- NOTE | 2023-08-11 19:07 | EDPHYS ---
Physician Documentation [facility] Name: Rodrigue Medina Age: 73 yrs Sex: Male : 1950 Arrival Date: 08/11/2023 Time: 13:51 Bed 3 Private MD: ED Physician Ari Petit HPI: 08/11 21:02 This 73 yrs old Black Male presents to ER via EMS with complaints of General Weakness. rt 21:02 Patient presents to the ED following mechanical fall. Patient states that he tripped, rt falling. He did not hit his head. Triage note states that the patient was complaining of the leg pain, he denies this to me. He denies hitting his head or having loss of consciousness. Patient reportedly was feeling weak, unable to get up. Denies other acute complaints at this time, symptoms are moderate in severity, no other aggravating alleviating factors.. Historical: - Allergies: 15:09 No Known Allergies; jl7 - PMHx: 15:09 Congestive heart failure; diabetes mellitus; Hypertensive disorder; jl7 - Immunization history:: Adult Immunizations unknown. - Social history:: Smoking status: unknown. - Family history:: not pertinent. ROS: 21:02 Constitutional: Negative for fever, chills, and weight loss, Neck: Negative for injury, rt pain, and swelling, Cardiovascular: Negative for chest pain, palpitations, and edema, Respiratory: Negative for shortness of breath, cough, wheezing, and pleuritic chest pain, Abdomen/GI: Negative for abdominal pain, nausea, vomiting, diarrhea, and constipation, Skin: Negative for injury, rash, and discoloration, Neuro: Negative for headache, weakness, numbness, tingling, and seizure, Psych: Negative for depression, anxiety, suicide ideation, homicidal ideation, and hallucinations, 21:02 Neuro: Positive for weakness, Exam: 21:02 Constitutional: This is a well developed, well nourished patient who is awake, alert, rt and in no acute distress. Head/Face: Normocephalic, atraumatic. Chest/axilla: Normal chest wall appearance and motion. Nontender with no deformity. No lesions are appreciated. Cardiovascular: Regular rate and rhythm with a normal S1 and S2. No gallops, murmurs, or rubs. Normal PMI, no JVD. No pulse deficits. Respiratory: Lungs have equal breath sounds bilaterally, clear to auscultation and percussion. No rales, rhonchi or wheezes noted. No increased work of breathing, no retractions or nasal flaring. Abdomen/GI: Soft, non-tender, with normal bowel sounds. No distension or tympany. No guarding or rebound. No evidence of tenderness throughout. Skin: Warm, dry with normal turgor. Normal color with no rashes, no lesions, and no evidence of cellulitis. MS/ Extremity: Pulses equal, no cyanosis. Neurovascular intact. Full, normal range of motion. Neuro: Awake and alert, GCS 15, oriented to person, place, time, and situation. Cranial nerves II-XII grossly intact. Motor strength 5/5 in all extremities. Sensory grossly intact. Cerebellar exam normal. Normal gait. Psych: Awake, alert, with orientation to person, place and time. Behavior, mood, and affect are within normal limits. 21:02 ECG was reviewed by the Attending Physician. Vital Signs: 14:39 BP 166 / 104; Pulse 106; Resp 15; Temp 101.9; Pulse Ox 100% ; jl7 15:10 BP 160 / 104; Pulse 115; Resp 15; Pulse Ox 100% ; jl7 15:57 BP 148 / 95; Pulse 102; Resp 15; Temp 99; Pulse Ox 100% ; jl7 17:45 BP 158 / 96; Pulse 95; Resp 15; Pulse Ox 100% ; jl7 19:13 BP 143 / 91; Pulse 93; Resp 17; Pulse Ox 98% ; jj7 MDM: 13:59 Patient medically screened. snw 21:02 Differential Diagnosis Fluid, electrolyte disturbance, dysrhythmia.. Data reviewed: rt vital signs, lab test result(s), EKG, radiologic studies. Consideration of Admission/Observation Escalation of care including admission/observation considered. Tachycardia resolved with IV fluids, patient's symptoms have significantly improved, is able to ambulate, is desirous of discharge, stable for outpatient care, return precautions discussed.. I considered the following discharge prescriptions or medication management in the emergency department Medications were administered in the Emergency Department. See MAR. Independent interpretation of the following test(s) in the Emergency Department X-Ray: My interpretation is No consolidations on my interpretation of x-ray images. Care significantly affected by the following chronic conditions: Hypertension. Counseling: I had a detailed discussion with the patient and/or guardian regarding the historical points, exam findings, and any diagnostic results supporting the discharge/admit diagnosis, lab results, radiology results, the need for outpatient follow up, to return to the emergency department if symptoms worsen or persist or if there are any questions or concerns that arise at home. Response to treatment: the patient's symptoms have markedly improved after treatment. 08/11 14:01 Order name: Basic Metabolic Panel; Complete Time: 16:21 rt 08/11 14:01 Order name: CBC with Diff; Complete Time: 16:21 rt 08/11 14:01 Order name: LFT's; Complete Time: 16:21 rt 08/11 14:01 Order name: Magnesium; Complete Time: 16:21 rt 08/11 14:01 Order name: Troponin HS; Complete Time: 16:21 rt 08/11 14:01 Order name: UAM; Complete Time: 16:21 rt 08/11 14:43 Order name: Blood Culture Adult (2) rt 08/11 14:43 Order name: Lactate w/ 2H reflex if indic.; Complete Time: 16:21 rt 08/11 14:53 Order name: COVID-19/FLU A+B; Complete Time: 16:21 ds4 08/11 14:01 Order name: XRAY Chest (1 view); Complete Time: 16:21 rt 08/11 14:01 Order name: EKG; Complete Time: 14:02 rt 08/11 14:01 Order name: Cardiac monitoring; Complete Time: 14:34 rt 08/11 14:01 Order name: EKG - Nurse/Tech; Complete Time: 14:34 rt 08/11 14:01 Order name: IV Saline Lock; Complete Time: 14:43 rt 08/11 14:01 Order name: Labs collected and sent; Complete Time: 14:44 rt 08/11 14:01 Order name: O2 Per Protocol; Complete Time: 14:35 rt 08/11 14:01 Order name: O2 Sat Monitoring; Complete Time: 14:35 rt EC:02 Rate is 106 beats/min. Rhythm is regular, Sinus tachycardia with Right bundle branch rt block. Left axis deviation noted. CA interval is normal. QRS interval is normal. QT interval is normal. No Q waves. T waves are Normal. No ST changes noted. Administered Medications: 14:55 Drug: Acetaminophen PO 1000 mg PO once Route: PO; jl7 16:00 Follow up: Response: Temperature is decreased jl7 16:32 Drug: NS 0.9% IV 500 ml IV at bolus once Route: IV; Rate: bolus; Site: left antecubital;jl7 19:13 Follow up: IV Status: Completed infusion jj7 16:32 Drug: NS 0.9% IV 500 ml IV at bolus once Route: IV; Rate: bolus; Site: left antecubital;jl7 19:13 Follow up: IV Status: Completed infusion jj7 Disposition Summary: 08/11/23 19:06 Discharge Ordered Notes: Location: Home rt Problem: new rt Symptoms: have improved rt Condition: Stable rt Diagnosis - Influenza rt Followup: rt - With: Private Physician - When: 2 - 3 days - Reason: Discharge Instructions: - Discharge Summary Sheet rt - Influenza, Adult rt Forms: - Medication Reconciliation Form rt - Thank You Letter rt - Antibiotic Education rt - Prescription Opioid Use rt - Patient Portal Instructions rt - Leadership Thank You Letter rt Prescriptions: - Tamiflu 75 mg Oral capsule - take 1 tablet ORAL route every 12 hours for 5 days; 10 tablet; Refills: 0, rt Product Selection Permitted Signatures: Dispatcher [employer] Celeste Yeung, LEIGH-C SUPERVISOR TYPE PHOTOGRAPHY-Csnw rFanki Martinez RN RN jl7 Ari Petit MD MD rt Maddie Moncada RN jj7
--- NOTE | 2023-08-11 19:07 | ER ---
Nurse's Notes [facility] Name: Rodrigue Medina Age: 73 yrs Sex: Male : 1950 Arrival Date: 08/11/2023 Time: 13:51 Bed 3 Private MD: Diagnosis: Influenza Presentation: 08/11 14:01 Chief complaint: EMS states: "toned out for slipping and falling. Pt states he is mb9 weaker than normal. Pt complaining of pain in left leg." No LOC, did not hit head, and does not take blood thinners. 14:02 Coronavirus screen: At this time, the client does not indicate any symptoms associated mb9 with coronavirus-19. Ebola Screen: No symptoms or risks identified at this time. Initial Sepsis Screen: Does the patient meet any 2 criteria? Temp <36.0*C (96.8*F)) or > 38.3*C (100.9*F). HR > 90 bpm. Yes Does the patient have a suspected source of infection? No. Patient's initial sepsis screen is negative. Risk Assessment: Do you want to hurt yourself or someone else? Patient reports no desire to harm self or others. Onset of symptoms was August 11, 2023. 14:02 Method Of Arrival: EMS: [facility] mb9 14:02 Acuity: LIBBY 3 mb9 Triage Assessment: 14:00 General: Appears in no apparent distress. uncomfortable, Behavior is calm, cooperative, jl7 appropriate for age. Pain: Denies pain. Neuro: Level of Consciousness is obeys commands, listless, Oriented to person, place, time, situation. Cardiovascular: Patient's skin is warm and dry. Respiratory: Airway is patent Respiratory effort is even, unlabored, Respiratory pattern is regular, symmetrical. : Reports incontinence. Derm: Skin is pink, warm \\T\\ dry. Historical: - Allergies: 15:09 No Known Allergies; jl7 - PMHx: 15:09 Congestive heart failure; diabetes mellitus; Hypertensive disorder; jl7 - Immunization history:: Adult Immunizations unknown. - Social history:: Smoking status: unknown. - Family history:: not pertinent. Screenin:58 [facility] ED Fall Risk Assessment (Adult) Score/Fall Risk Level 0 - 2 = Low Risk jl7 Oriented to surroundings, Maintained a safe environment. Abuse screen: Denies threats or abuse. Denies injuries from another. Nutritional screening: No deficits noted. Tuberculosis screening: No symptoms or risk factors identified. Assessment: 14:00 General: See triage assessment. jl7 15:00 Reassessment: Patient appears in no apparent distress at this time. No changes from jl7 previously documented assessment. Patient and/or family updated on plan of care and expected duration. Pain level reassessed. Patient is alert, oriented x 3, equal unlabored respirations, skin warm/dry/pink. 16:00 Reassessment: Patient appears in no apparent distress at this time. No changes from jl7 previously documented assessment. Patient and/or family updated on plan of care and expected duration. Pain level reassessed. Patient is alert, oriented x 3, equal unlabored respirations, skin warm/dry/pink. 17:00 Reassessment: Patient appears in no apparent distress at this time. No changes from jl7 previously documented assessment. Patient and/or family updated on plan of care and expected duration. Pain level reassessed. Patient is alert, oriented x 3, equal unlabored respirations, skin warm/dry/pink. 19:02 Reassessment: Pt able to stand and take a few steps without assist, reports feeling jl7 better. ERD notified. Vital Signs: 14:39 BP 166 / 104; Pulse 106; Resp 15; Temp 101.9; Pulse Ox 100% ; jl7 15:10 BP 160 / 104; Pulse 115; Resp 15; Pulse Ox 100% ; jl7 15:57 BP 148 / 95; Pulse 102; Resp 15; Temp 99; Pulse Ox 100% ; jl7 17:45 BP 158 / 96; Pulse 95; Resp 15; Pulse Ox 100% ; jl7 19:13 BP 143 / 91; Pulse 93; Resp 17; Pulse Ox 98% ; jj7 ED Course: 13:58 Patient arrived in ED. hb 13:59 Ari Petit MD is Attending Physician. snw 14:03 Franki Martinez, GABBY is Primary Nurse. jl7 14:03 Triage completed. mb9 14:15 Initial lab(s) drawn, by me, sent to lab. First set of blood cultures drawn by me. jl7 14:30 Inserted saline lock: 20 gauge in left antecubital area, using aseptic technique. Blood jl7 collected. 15:10 Arm band placed on right wrist. jl7 15:15 XRAY Chest (1 view) In Process Unspecified. EDMS 15:57 Urine collected:. jl7 15:59 Patient has correct armband on for positive identification. Provided Education on: use jl7 of call singleton. 17:00 No provider procedures requiring assistance completed. jl7 19:13 IV discontinued, intact, bleeding controlled, No redness/swelling at site. Pressure jj7 dressing applied. Administered Medications: 14:55 Drug: Acetaminophen PO 1000 mg PO once Route: PO; jl7 16:00 Follow up: Response: Temperature is decreased jl7 16:32 Drug: NS 0.9% IV 500 ml IV at bolus once Route: IV; Rate: bolus; Site: left antecubital;jl7 19:13 Follow up: IV Status: Completed infusion jj7 16:32 Drug: NS 0.9% IV 500 ml IV at bolus once Route: IV; Rate: bolus; Site: left antecubital;jl7 19:13 Follow up: IV Status: Completed infusion jj7 Medication: 15:58 VIS not applicable for this client. jl7 Outcome: 19:06 Discharge ordered by MD. rt 19:13 Discharged to home via wheelchair, jj7 19:13 Condition: improved 19:13 Discharge instructions given to patient, Instructed on discharge instructions, medication usage, Demonstrated understanding of instructions, medications, Prescriptions given X 1, 19:24 Patient left the ED. jj7 Signatures: Dispatcher [employer] EDMS Celeste Renner, CASHIER CREDIT-C CASHIER CREDIT-Csnw Shanika Saavedra RN RN hb Leal, Jahala, RN RN jerri7 Maddie Moncada RN GABBY jLuly Yusuf RN RN mb9 Ari Petit MD MD rt Corrections: (The following items were deleted from the chart) 14:03 14:01 Chief complaint: EMS states: "toned out for slipping and falling. Pt+ mb9 mb9 15:10 14:02 Initial Sepsis Screen: Does the patient meet any 2 criteria? No. Patient's jl7 initial sepsis screen is negative. Does the patient have a suspected source of infection? No. Patient's initial sepsis screen is negative. mb9 19:21 19:20 IV discontinued, intact, bleeding controlled, No redness/swelling at site. jj7 Pressure dressing applied, jj7
[2023-08-11 19:53] VITALS: TEMP 99
[2023-08-11 19:56] VITALS: BP 143/91; O2SAT 98
--- NOTE | 2023-08-14 15:27 | EKG ---
Test Date: 2023-08-11 Test Time: 14:26:43 Business Control Manager: LILIAM MEASUREMENT RESULTS: Intervals: Rate: 106 TN: 246 QRSD: 130 QT: 322 QTc: 427 [place]: P: 74 TN: 246 QRS: -87 T: 23 INTERPRETIVE STATEMENTS: Sinus tachycardia with 1st degree AV block Left axis deviation Right bundle branch block Abnormal ECG No previous ECG available for comparison Electronically Signed On 08-14-23 15:15:53 SPECTROGRAPHIC ANALYST by Rickie Mares
== END 2023-08-11 19:24 | disposition home or self-care (01) ==
LOC: ER 13:51
DX: J11.1 Influenza due to unidentified influenza virus with other respiratory manifestations (principal); I50.9 Heart failure, unspecified; E11.9 Type 2 diabetes mellitus without complications; I10 Essential (primary) hypertension; Z11.52 Encounter for screening for COVID-19
CPT/HCPCS: 96361; 93005; 87040; 85025; 81001; 80048; 36415; 83735; 80076; 83605; 84484; 0240U; 71045; 96360; 99284; J7040; J7030